=== PATIENT | male | born 1930 | race African-American/Black ===

== ENCOUNTER 2017-02-06 06:29 | Emergency (ER) | payer MEDICARE ==
[~2017-02-06] VITALS: Ht 180.3 cm; Wt 113.4 kg
[~2017-02-06 06:29] MED LIST: AMIO200T2 PO; AMLO10TA2 PO; APIX5TAB PO; ASPI-482 PO; ASPI81TA50 PO; CHLO25TA PO; CLON0.1T PO; DOCU-27 PO; GABA-586 PO; HYDR-2666 PO; HYDR-2868 PO; HYDR25TA9 PO; LOSA100T6 PO; LOSA50TA6 PO; MAGN30OR PO; METO25TA4 PO; MULT-245 PO; NITR0.4T SL; NITR0.4T6 SL; OXYC5TAB PO; PANT40TA3 PO; POLY17PO5 PO; POTA20TA82 PO; RANI300C PO; RIVA20TA2 PO; SENN8.6T3 PO; SOTA160T PO; TEMA30CA PO; TRAM50TA PO; [UNRECOGNIZED DRUG - CODE] PO
--- NOTE | 2017-02-06 08:44 | RAD ---
AP pelvis radiograph to include AP and lateral radiographs of the left hip 02/06/2017 Clinical history: Fall last night with left hip pain and bruising. An AP digital radiograph of the pelvis to include both hips was obtained. AP and lateral digital radiographs of the left hip were obtained. Surgical clips are seen within the lower pelvis. The patient is status post bilateral JULIO. The prosthetic components are intact. No pelvic bone fracture is seen. No fracture or dislocation of the left hip is noted. Impression: No fracture or dislocation is seen.
--- NOTE | 2017-02-06 09:06 | PHYS DOC ---
Past Medical History Past Medical History: Arrhythmia, Cancer, Hypertension, Other Additional Past Medical Histor: colon cancer, prostate cancer, Past Surgical History: Cholecystectomy, Colectomy, Pacemaker, Other Additional Past Surgical Histo: prostate surgery Alcohol Use: None Drug Use: None Adult General Chief Complaint Chief Complaint: HIP PAIN [facility] HPI 86-year-old male who states he fell on his left hip on a wet bathroom floor several days ago and is now having some significant bruising and mild pain with ambulation. 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 He denies any fever or chills. He denies any other atraumatic injury. He denies any abdominal pain, chest pain or shortness of breath. He states he did not hit his head and has no loss consciousness. Review of Systems Review of Systems Constitutional: Denies fever or chills [] Eyes: Denies change in visual acuity, redness, or eye pain [] HENT: Denies nasal congestion or sore throat [] Respiratory: Denies cough or shortness of breath [] Cardiovascular: No additional information not addressed in HPI [] GI: Denies abdominal pain, nausea, vomiting, bloody stools or diarrhea [] : Denies dysuria or hematuria [] Musculoskeletal: Denies back pain, has joint pain [] Integument: Denies rash or skin lesions [] Neurologic: Denies headache, focal weakness or sensory changes [] Endocrine: Denies polyuria or polydipsia [] Allergies Allergies Allergies Coded Allergies Type Severity Reaction Last Updated Verified Xprbwvd-Vjk-Zap Reductase Inhibitor Allergy Intermediate Rash 11/09/13 Yes Physical Exam Physical Exam Constitutional: Well developed, well nourished, no acute distress, non-toxic appearance. [] HENT: Normocephalic, atraumatic, bilateral external ears normal, oropharynx moist, no oral exudates, nose normal. [] Eyes: PERRLA, EOMI, conjunctiva normal, no discharge. [] Neck: Normal range of motion, no tenderness, supple, no stridor. [] Cardiovascular:Heart rate regular rhythm, no murmur [] Lungs & Thorax: Bilateral breath sounds clear to auscultation [] Abdomen: Bowel sounds normal, soft, no tenderness, no masses, no pulsatile masses. [] Skin: Warm, dry, no erythema, no rash. [] Back: No tenderness, no CVA tenderness. [] Extremities: Mild bruising and tenderness to the left hip with no obvious swelling or deformity seen, no cyanosis, no clubbing, ROM intact, no edema. [] Neurologic: Alert and oriented X 3, normal motor function, normal sensory function, no focal deficits noted. [] Psychologic: Affect normal, judgement normal, mood normal. [] Current Patient Data Vital Signs Vital Signs Date Time Temp Pulse Resp B/P Pulse Ox O2 Delivery O2 Flow Rate FiO2 02/06/17 08:00 98.3 65 19 98 Room Air 98.3 EKG EKG [] Radiology/Procedures Radiology/Procedures AP pelvis radiograph to include AP and lateral radiographs of the left hip 02/06/2017 Clinical history: Fall last night with left hip pain and bruising. An AP digital radiograph of the pelvis to include both hips was obtained. AP and lateral digital radiographs of the left hip were obtained. Surgical clips are seen within the lower pelvis. The patient is status post bilateral JULIO. The prosthetic components are intact. No pelvic bone fracture is seen. No fracture or dislocation of the left hip is noted. Impression: No fracture or dislocation is seen. DICTATED and SIGNED BY: JUAN CARLOS CHAHAL MD DATE: 02/06/17 0840 CC: NIMISHA BUTTS DO; LAN DOWLING MD ~ Course & Med Decision Making Course & Med Decision Making Pertinent Labs and Imaging studies reviewed. (See chart for details) This 86-year-old male who's having moderate left hip pain has plain films that are negative for any acute fracture or dislocation. He does have some mild bruising seen her left hip but no other acute findings on exam. He is likely having hip contusion and I counseled him to avoid any stress activities and follow closely his primary care doctor. Patient is prescribed pain medications and has enough at home for the next several days. He was instructed to follow closely with his primary care doctor for his ongoing pain. Dragon Disclaimer Dragon Disclaimer This electronic medical record was generated, in whole or in part, using a voice recognition dictation system. Departure Departure Impression: Primary Impression: Contusion, hip Disposition: 01 HOME, SELF-CARE Admitting Physician: Other Condition: STABLE Referrals: LAN DOWLING MD (PCP) Patient Instructions: Hip Injury Additional Instructions: Please take your pain medication as needed for your hip injury and avoid any strenuous activities. Follow up closely with your primary doctor in the next 2- 3 days for your injury. Return to the ER if you develop any worsening of your pain. NIMISHA BUTTS DO Feb 06, 2017 09:06
[2017-02-06 09:18] VITALS: BP 166/72
== END 2017-02-06 09:15 | disposition home or self-care (01) ==
LOC: ER 06:29
DX: S70.02XA Contusion of left hip, initial encounter (principal); I10 Essential (primary) hypertension; Z96.643 Presence of artificial hip joint, bilateral; Z88.8 Allergy status to other drugs, medicaments and biological substances; Z96.89 Presence of other specified functional implants; W18.39XA Other fall on same level, initial encounter; Y93.89 Activity, other specified; Y92.091 Bathroom in other non-institutional residence as the place of occurrence of the external cause; Y99.8 Other external cause status
CPT/HCPCS: 73502; 99284

== ENCOUNTER 2017-07-10 09:40 | Emergency (ER) | payer MEDICARE ==
[~2017-07-10] VITALS: Ht 180.3 cm; Wt 115.7 kg
[~2017-07-10 09:40] MED LIST changes: +DOCU-109 PO; -DOCU-27 PO; -HYDR-2666 PO; +HYDR-2758 PO; +NITR0.4T22 SL; -NITR0.4T6 SL; -OXYC5TAB PO; +OXYC5TAB95 PO; +POLY17PO29 PO; -POLY17PO5 PO; +SENN-79 PO; -SENN8.6T3 PO
[2017-07-10 10:18] VITALS: BP 169/84
--- NOTE | 2017-07-10 10:30 | PHYS DOC ---
Past Medical History Past Medical History: Arrhythmia, Cancer, Hypertension, Other Additional Past Medical Histor: colon cancer, prostate cancer, Past Surgical History: Cholecystectomy, Colectomy, Pacemaker, Other Additional Past Surgical Histo: prostate surgery Alcohol Use: None Drug Use: None Adult General Chief Complaint Chief Complaint: CHEMICAL EXPOSURE HPI HPI Patient is a 87 year old male presents to the emergency department with complaints of spilling yard spray on his hand and apparently. Patient states he washed immediately. He states that he reviewed the container and it told him to go to poison control emergency department. Upon arrival he has no complaints. Review of Systems Review of Systems Constitutional: Denies fever or chills [] Eyes: Denies change in visual acuity, redness, or eye pain [] HENT: Denies nasal congestion or sore throat [] Respiratory: Denies cough or shortness of breath [] Cardiovascular: No additional information not addressed in HPI [] GI: Denies abdominal pain, nausea, vomiting, bloody stools or diarrhea [] : Denies dysuria or hematuria [] Musculoskeletal: Denies back pain or joint pain [] Integument: Denies rash or skin lesions [] Neurologic: Denies headache, focal weakness or sensory changes [] Endocrine: Denies polyuria or polydipsia [] Allergies Allergies Allergies Coded Allergies Type Severity Reaction Last Updated Verified Vithisc-Oxp-Lfz Reductase Inhibitor Allergy Intermediate Rash 11/09/13 Yes Physical Exam Physical Exam Constitutional: Well developed, well nourished, no acute distress, non-toxic appearance. [] HENT: Normocephalic, atraumatic, bilateral external ears normal, oropharynx moist, no oral exudates, nose normal. [] Eyes: PERRLA, EOMI, conjunctiva normal, no discharge. [] Neck: Normal range of motion, no tenderness, supple, no stridor. [] Cardiovascular:Heart rate regular rhythm, no murmur [] Lungs & Thorax: Bilateral breath sounds clear to auscultation [] Abdomen: Bowel sounds normal, soft, no tenderness, no masses, no pulsatile masses. [] Skin: Warm, dry, no erythema, no rash, no vesicles [] Back: No tenderness, no CVA tenderness. [] Extremities: No tenderness, no cyanosis, no clubbing, ROM intact, no edema. [] Neurologic: Alert and oriented X 3, normal motor function, normal sensory function, no focal deficits noted. [] Psychologic: Affect normal, judgement normal, mood normal. [] EKG EKG [] Radiology/Procedures Radiology/Procedures [] Course & Med Decision Making Course & Med Decision Making Pertinent Labs and Imaging studies reviewed. (See chart for details) []Patient does have several small spills on his family. The pants were removed in the emergency department the patient was scrubbed with soap and water. He was provided with additional garments to wear home. Dragon Disclaimer Dragon Disclaimer This electronic medical record was generated, in whole or in part, using a voice recognition dictation system. Departure Departure Impression: Primary Impression: Exposure to chemical irritant Disposition: 01 HOME, SELF-CARE Condition: STABLE Referrals: LAN DOWLING MD (PCP) ANTONIO MUÑOZ APRN Jul 10, 2017 10:30
== END 2017-07-10 10:51 | disposition home or self-care (01) ==
LOC: ER 09:40
DX: Z77.098 Contact with and (suspected) exposure to other hazardous, chiefly nonmedicinal, chemicals (principal); Z88.8 Allergy status to other drugs, medicaments and biological substances; I10 Essential (primary) hypertension; Z90.49 Acquired absence of other specified parts of digestive tract; Z95.0 Presence of cardiac pacemaker
CPT/HCPCS: 99281

== ENCOUNTER 2018-02-21 13:21 | Emergency (ER) | payer MEDICARE ==
[2018-02-21] MEDS: DIPHTH,PERTUSS(ACELL),TET TOX 0.5 ML DISP.SYRIN. VAX IM (14:35)
[2018-02-21] MEDS: LIDOCAINE/EPI/TETRACAINE TOPICAL GEL 3 ML. TP (15:08)
[2018-02-21] MEDS: LIDOCAINE WITH 8.4% SOD BICARB 3 ML DISP.SYRIN. INJ (15:58)
== END 2018-02-21 16:29 | disposition home or self-care (01) ==
LOC: ER 13:21
DX: S60.552A Superficial foreign body of left hand, initial encounter (principal); I10 Essential (primary) hypertension; E78.00 Pure hypercholesterolemia, unspecified; Z90.49 Acquired absence of other specified parts of digestive tract; Z95.0 Presence of cardiac pacemaker; Z79.899 Other long term (current) drug therapy; Z88.8 Allergy status to other drugs, medicaments and biological substances; Z79.02 Long term (current) use of antithrombotics/antiplatelets; W45.8XXA Other foreign body or object entering through skin, initial encounter; Y93.89 Activity, other specified; Y92.89 Other specified places as the place of occurrence of the external cause; Y99.8 Other external cause status
CPT/HCPCS: 73130; 90471; 90715; 99284

== ENCOUNTER → 2019-05-14 | Outpatient (CLI) | payer MEDICARE ==
[2018-07-11 11:19] VITALS: BP 136/72
[~2019-05-14] MED LIST changes: -AMIO200T2 PO; +AMIO200T4 PO; -AMLO10TA2 PO; +AMLO10TA8 PO; -CHLO25TA PO; +CHLO25TA10 PO; -GABA-586 PO; +GABA300C18 PO; +HYDR-2145 PO; -HYDR-2758 PO; +HYDR-2761 PO; -HYDR25TA9 PO; +ISOS30TA4 PO; +LOSA-73 PO; +LOSA100T14 PO; -LOSA100T6 PO; -LOSA50TA6 PO; +OXYC5TAB4 PO; -OXYC5TAB95 PO; -PANT40TA3 PO; +PANT40TA77 PO; -SENN-79 PO; +SENN-80 PO; +SOTA80TA48 PO
--- NOTE | 2019-05-17 12:16 | RAD ---
MR#: [id number] Date of Study: 05/14/2019 Ordering Physician: PRASANNA HUNTER, Referring Physician: PRASANNA HUNTER, Tech: Kari Sun, LORA, RVT, RTR APPROVED REPORT Patient Location: OUT-PATIENT Indications Uncontrolled HTN Renal Artery Doppler Right Renal Artery Left Renal Arter y Proximal 91.5/22.3 cm/secProximal 81.4/18.5 cm/sec Mid 74.0/24.7 cm/secMid 88.3/21.5 cm/sec Distal 101.8/25.5 cm/secDistal 59.6/22.3 cm/sec Renal/Aorta Ratio 0.00Renal/Aorta Ratio 0.00 Prox. Resistive Index 0.76Prox. Resistive Index 0.77 Mid Resistive Index 0.84Mid Resistive Index 0.76 Distal Resistive Index 0.75Distal Resistive Index 0.63 Rt. Segmental A. 19.5/6.4 cm/secLt. Segmental A. Renal Measurements RightLeft Kidney Ogexzz36.16 cm 4.93 cmKidney Iekvez92.93 cm 4.26 cm Right Additional FindingsLeft Additional Findings Aortic Doppler VelocityWaveform Distal Aorta 87.5 cm/sec Findings Bilateral medical renal disease is noted There are multiple bilateral renal cysts with the largest measuring 3.9 x 3.2 x 2.8 cm on the right a nd 2.5 x 2.0 x 2.2 cm on the left. These appear to be simple cysts. Spectral waveforms and color Doppler involving the proximal, mid and distal renal arteries do not ruth w any evidence of renal artery stenosis. Velocities are within normal limits with a normal renal to a ortic ratios. Limited evaluation of the abdominal aorta does not demonstrate any high-grade focal ady nosis. The bilateral kidney size appears to be within normal limits. Critical Notification Critical Value: No <Conclusion> 1. No significant renal artery stenosis bilaterally 2. Multiple bilateral renal cysts noted. Signed by : Black Atkinson, Electronically Approved : 05/17/2019 12:15:55
== END | disposition home or self-care (01) ==
LOC: US 08:36
PROVIDERS: ATTEND Internal Medicine Cardiovascular Disease
DX: N28.1 Cyst of kidney, acquired (principal); I10 Essential (primary) hypertension
CPT/HCPCS: 93975

== ENCOUNTER 2019-07-29 04:49 | Inpatient (IN) | payer MEDICARE ==
[~2019-07-29] VITALS: Ht 180.3 cm; Wt 111.3 kg
[~2019-07-29 04:49] MED LIST changes: -NITR0.4T SL; +NITR0.4T24 SL
[2019-07-29] MEDS ORDERED: NITROGLYCERIN SUBLINGUAL 0.4 MG BOTTLE OF 25. SL PRN ×2 (05:00→05:45)
[2019-07-29] MEDS ORDERED: ASPIRIN CHEWABLE 81 MG TABLET. PO ONE (05:00)
[2019-07-29 05:09] LABS: BASO % 1 % (0-3); EOS # 0.2 x10^3/uL (0.0-0.7); EOS % 5 % (0-3); HEMOGLOBIN 13.5 g/dL (13.0-17.5); LYMPH # 1.1 x10^3/uL (1.0-4.8); LYMPH % 28 % (24-48); MEAN CORPUSCULAR HEMOGLOBIN 31 pg (25-35); MEAN CORPUSCULAR HGB CONC 34 g/dL (31-37); MEAN CORPUSCULAR VOLUME 93 fL (79-100); MONO # 0.7 x10^3/uL (0.0-1.1); MONO % 18 % (0-9); NEUT % 49 % (31-73); PLATELET COUNT 169 x10^3/uL (140-400); RED BLOOD COUNT 4.32 x10^6/uL (4.30-5.70); RED CELL DISTRIBUTION WIDTH 15.1 % (11.5-14.5); WHITE BLOOD COUNT 4.1 x10^3/uL (4.0-11.0)
--- NOTE | 2019-07-29 05:12 | PHYS DOC ---
Past Medical History Past Medical History: Arrhythmia, Cancer, High Cholesterol, Hypertension, Other Additional Past Medical Histor: colon cancer, prostate cancer, Past Surgical History: Cholecystectomy, Colectomy, Pacemaker, Other Additional Past Surgical Histo: prostate surgery Alcohol Use: None Drug Use: None Adult General Chief Complaint Chief Complaint: CHEST PAIN [facility] HPI 81-year-old male presents to the emergency department with complaints of chest pain. Patient states the pain was started around 9:30 PM last night prior to bed. Patient states he took a nitroglycerin and states he fell sleep. He woke up this morning around 3 AM with continued chest pain. Patient denied any nausea, vomiting, diaphoresis. Pain is located in the mid aspect of his chest, no radiat ion. States the pain was at rest. He currently denies any chest pain at this time. Patient states he's had a history of heart catheterization �2 without stent placement. He does have a pacemaker placed secondary to atrial fibrillation. Patient is on chronic anticoagulation. Patient denies any headac he, visual changes, abdominal pain. Nothing makes his pain worse, nothing makes his pain better. Review of Systems Review of Systems Constitutional: Denies fever or chills [] Respiratory: Denies cough or shortness of breath [] Cardiovascular: No additional information not addressed in HPI [] GI: Denies abdominal pain, nausea, vomiting, bloody stools or diarrhea [] Musculoskeletal: Denies back pain or joint pain [] Integument: Denies rash or skin lesions [] Neurologic: Denies headache, focal weakness or sensory changes [] All other systems were reviewed and found to be within normal limits, except as documented in this note. Current Medications Current Medications Current Medications Medications (Trade) Dose Ordered Sig/Afsaneh Start Time Stop Time Status Last Admin Dose Admin Aspirin (Children'S Aspirin) 324 mg 1X ONCE 07/29/19 05:00 07/29/19 05:04 DC 07/29/19 05:11 324 MG Nitroglycerin (Nitrostat) 0.4 mg PRN Q5MIN PRN 07/29/19 05:00 07/30/19 04:59 Allergies Allergies Allergies Coded Allergies Type Severity Reaction Last Updated Verified Lcceuvs-Umw-Fil Reductase Inhibitor Allergy Intermediate Rash 11/09/13 Yes Physical Exam Physical Exam Constitutional: Well developed, well nourished, no acute distress, non-toxic appearance. [] HENT: Normocephalic, atraumatic, bilateral external ears normal, oropharynx moist, no oral exudates, nose normal. [] Eyes: PERRLA, EOMI, conjunctiva normal, no discharge. [] Cardiovascular:Heart rate regular rhythm, no murmur [] Lungs & Thorax: Bilateral breath sounds clear to auscultation [] Abdomen: Bowel sounds normal, soft, no tenderness, no masses, no pulsatile masses. [] Skin: Warm, dry, no erythema, no rash. [] Extremities: No tenderness, no cyanosis, no edema. [] Neurologic: Alert and oriented X 3, no focal deficits noted. [] Psychologic: Affect normal, judgement normal, mood normal. [] Current Patient Data Vital Signs Vital Signs Date Time Temp Pulse Resp B/P (MAP) Pulse Ox O2 Delivery O2 Flow Rate FiO2 07/29/19 04:50 98.0 60 18 182/85 (117) 96 Room Air 98.0 Lab Values Laboratory Tests Test 07/29/19 05:00 White Blood Count 4.1 x10^3/uL (4.0-11.0) Red Blood Count 4.32 x10^6/uL (4.30-5.70) Hemoglobin 13.5 g/dL (13.0-17.5) Hematocrit 40.0 % (39.0-53.0) Mean Corpuscular Volume 93 fL (79-100) Mean Corpuscular Hemoglobin 31 pg (25-35) Mean Corpuscular Hemoglobin Concent 34 g/dL (31-37) Red Cell Distribution Width 15.1 % (11.5-14.5) H Platelet Count 169 x10^3/uL (140-400) Neutrophils (%) (Auto) 49 % (31-73) Lymphocytes (%) (Auto) 28 % (24-48) Monocytes (%) (Auto) 18 % (0-9) H Eosinophils (%) (Auto) 5 % (0-3) H Basophils (%) (Auto) 1 % (0-3) Neutrophils # (Auto) 2.0 x10^3/uL (1.8-7.7) Lymphocytes # (Auto) 1.1 x10^3/uL (1.0-4.8) Monocytes # (Auto) 0.7 x10^3/uL (0.0-1.1) Eosinophils # (Auto) 0.2 x10^3/uL (0.0-0.7) Basophils # (Auto) 0.0 x10^3/uL (0.0-0.2) Sodium Level 145 mmol/L (136-145) Potassium Level 4.1 mmol/L (3.5-5.1) Chloride Level 108 mmol/L (98-107) H Carbon Dioxide Level 29 mmol/L (21-32) Anion Gap 8 (6-14) Blood Urea Nitrogen 19 mg/dL (8-26) Creatinine 1.2 mg/dL (0.7-1.3) Estimated GFR (Cockcroft-Gault) 69.1 BUN/Creatinine Ratio 16 (6-20) Glucose Level 113 mg/dL (70-99) H Calcium Level 9.4 mg/dL (8.5-10.1) Magnesium Level 2.0 mg/dL (1.8-2.4) Total Bilirubin 0.3 mg/dL (0.2-1.0) Aspartate Amino Transferase (AST) 25 U/L (15-37) Alanine Aminotransferase (ALT) 26 U/L (16-63) Alkaline Phosphatase 85 U/L (46-116) Total Protein 7.4 g/dL (6.4-8.2) Albumin 3.5 g/dL (3.4-5.0) Albumin/Globulin Ratio 0.9 (1.0-1.7) L Laboratory Tests 07/29/19 05:00 Laboratory Tests 07/29/19 05:00 EKG EKG EKG is reviewed, heart rate 72, normal sinus rhythm appreciated, no acute evidence of ST elevation DC[] Interpretation Time: Interpretation time 0 456 Radiology/Procedures Radiology/Procedures [] Course & Med Decision Making Course & Med Decision Making Pertinent Labs and Imaging studies reviewed. (See chart for details) []81-year-old male presents to the emergency department with complaints of chest pain. Patient states the pain was started around 9:30 PM last night prior to bed. Patient states he took a nitroglycerin and states he fell sleep. He woke up this morning around 3 AM with continued chest pain. Patient denied any nausea, vomiting, diaphoresis. Pain is located in the mid aspect of his chest, no radiation. States the pain was at rest. He currently denies any chest pain at this time. Patient states he's had a history of heart catheterization �2 without stent placement. He does have a pacemaker placed secondary to atrial fibrillation. Patient is on chronic anticoagulation. Patient denies any headache, visual changes, abdominal pain. Nothing makes his pain worse, nothing makes his pain better. ASA 324mg po x 1, no NTG in the ER, patient without acute chest pain at this time. CXR without evidence of acute process - no effusion/consolidation. EKG reviewed - NSR no STEMI Troponin x 1 negative HEART Score [address] House Cardiology consult placed Dragon Disclaimer Dragon Disclaimer This electronic medical record was generated, in whole or in part, using a voice recognition dictation system. The HEART Score for CP Pts HEART Score for Chest Pain: HEART Score for Chest Pain Response (Comments) Value History Slighlty/Non-Suspicious 0 ECG Normal 0 Age > 65 2 Risk Factors >3 Risk Factors or Hx CAD 2 Total 4 Risk Factors: Risk Factors: DM, Current or recent (<one month) smoker, HTN, HLP, family history of CAD, obesity. Risk Scores: Score 0 - 3: 2.5% MACE over next 6 weeks - Discharge Home Score 4 - 6: 20.3% MACE over next 6 weeks - Admit for Clinical Observation Score 7 - 10: 72.7% MACE over next 6 weeks - Early Invasive Strategies Departure Departure Impression: Primary Impression: Chest pain Additional Impression: Essential hypertension Disposition: ADMITTED INPATIENT Admitting Physician: Brent House Condition: STABLE Referrals: BRENT HOUSE MD (PCP) Problem Qualifiers Primary Impression: Chest pain Chest pain type: unspecified Qualified Codes: R07.9 - Chest pain, u nspecified LIZZY HAND MD Jul 29, 2019 05:12
[2019-07-29 05:20] LABS: CALCIUM 9.4 mg/dL (8.5-10.1); CREATININE 1.2 mg/dL (0.7-1.3); GFR 69.1; POTASSIUM 4.1 mmol/L (3.5-5.1)
[2019-07-29 05:26] LABS: ALBUMIN 3.5 g/dL (3.4-5.0); ALBUMIN/GLOBULIN RATIO 0.9 (1.0-1.7); TOTAL BILIRUBIN 0.3 mg/dL (0.2-1.0); TOTAL PROTEIN 7.4 g/dL (6.4-8.2)
[2019-07-29] MEDS ORDERED: ONDANSETRON PF 4 MG/2 ML VIAL. IV PRN (05:45)
[2019-07-29 06:15] VITALS: BP 152/82
--- NOTE | 2019-07-29 06:20 | EKG ---
[facility] [address] [place] [address] Test Date: 2019-07-29 Test Time: 04:52:59 Pat Name: MARITA ARCOS Department: Room: Gender: M Yoghurt Maker: : [id number] Requested By: LIZZY HAND Order Number: [id number] Reading MD: Measurements Intervals Pruden Rate: 72 P: -47 MD: 122 QRS: 54 QRSD: 86 T: 35 QT: 388 QTc: 426 Interpretive Statements SINUS RHYTHM OTHERWISE NORMAL ECG RI6.01 No previous ECG available for comparison
--- NOTE | 2019-07-29 06:21 | RAD ---
EXAM: CHEST ONE VIEW. HISTORY: Chest pain. COMPARISON: 07/09/2018. FINDINGS: A frontal view of the chest is obtained. A left-sided pacemaker has its leads in the right atrium and right ventricle. There are no confluent infiltrates. There is no pneumothorax or pleural effusion. The heart is not enlarged. There are atherosclerotic calcifications of the aorta. IMPRESSION: 1. No confluent infiltrates. Electronically signed by: Bonita Mcdaniels MD (07/29/2019 6:18 AM) [facility]
[2019-07-29] MEDS ORDERED: GABA600T7 PO (06:44)
[2019-07-29] MEDS ORDERED: DOCU100C28 PO (06:44)
[2019-07-29] MEDS ORDERED: HYDR-2868 PO (06:44)
[2019-07-29 07:00] VITALS: BP 168/74
[2019-07-29 08:38] LABS: CHOLESTEROL/HDL RATIO 3.9
--- NOTE | 2019-07-29 08:45 | PDOC2 ---
ROSALIND PLAZA NEUROLOGY EPILEPSY PHYSICIAN 07/29/19 0845: CARDIAC CONSULT DATE OF CONSULT Date of Consult DATE: 07/29/19 TIME: 08:41 REASON FOR CONSULT Reason for Consult: Chest pain REFERRING PHYSICIAN Referring Physician: Adrien SOURCE Source: Chart review, Patient HISTORY OF PRESENT ILLNESS HISTORY OF PRESENT ILLNESS This is a pleasant 89 yo male admitted for complains of chest pain. Reports that this is sharp and started yesterday. It goes for about 1 minute then goes away isolated [facility] with no radiation. No associated n/v. No palpitations, SOA. In fact he walks about 1.5 miles a day and does gardening and no associated LAUREN nor exertional CP. No recent falls or injury. He diogenes another episode last night but again it was just 1 minuted and just went ahead and took NTG SL and went to bed. He had another episode early this am. Again no associated symptoms. He does have family dynamic issues. His son 62 yo lives with him and does not follow the rules and does not contribute in the house and this is stressing him out. He explains that his son is arrogant. He is compliant with his medications and takes sotalol and eliquis for afib. No frequent dizziness or any passing out spells. PAST MEDICAL HISTORY Cardiovascular: CAD, HTN, Hyperlipidemia Pulmonary: No pertinent hx CENTRAL NERVOUS SYSTEM: Other (No pertinent history) GI: GERD Heme/Onc: No pertinent hx Hepatobiliary: No pertinent hx Psych: No pertinent hx Musculoskeletal: Osteoarthritis Rheumatologic: No pertinent hx Infectious disease: No pertinent hx ENT: No pertinent hx Renal/: Prostate Ca., Other (bilateral renal cysts) Endocrine: No pertinent hx Dermatology: No pertinent hx PAST SURGICAL HISTORY Past Surgical History: Pacemaker, Cholecystectomy, Total hip replacement (left), Other (prostatectomy) FAMILY HISTORY Family History: Heart Disease (mother) SOCIAL HISTORY Smoke: No ALCOHOL: none Drugs: None Lives: with Family CURRENT MEDICATIONS CURRENT MEDICATIONS Current Medications Medications (Trade) Dose Ordered Sig/Afsaneh Route PRN Reason Start Time Stop Time Status Last Admin Dose Admin Aspirin (Children'S Aspirin) 324 mg 1X ONCE PO 07/29/19 05:00 07/29/19 05:04 DC 07/29/19 05:11 ALLERGIES ALLERGIES: Coded Allergies: Jgxbobv-Hrm-Urf Reductase Inhibitor (Verified Allergy, Intermediate, Rash, 1/14/14) ROS Review of System 14 point ROS evaluated with pertinent positives noted per HPI PHYSICAL EXAM General: Alert, Oriented X3, Cooperative, No acute distress HEENT: Atraumatic, Mucous membr. moist/pink Lungs: Clear to auscultation, Normal air movement Heart: Regular rate (Atrial paced), Normal S1, Normal S2, Other (3/6 systolic murmur to PATSY border) Abdomen: Soft, No tenderness Extremities: No cyanosis, No edema Skin: No breakdown, No significant lesion Neuro: Normal speech, Sensation intact Psych/Mental Status: Mental status NL, Mood NL MUSCULOSKELETAL: Osteoarthritic changes both hands VITALS/I&O VITALS/I&O: Vital Signs Date Time Temp Pulse Resp B/P (MAP) Pulse Ox O2 Delivery O2 Flow Rate FiO2 07/29/19 07:00 97.6 60 24 168/74 (105) 95 Room Air 97.6 LABS Lab: Laboratory Tests Test 07/29/19 05:00 07/29/19 05:08 White Blood Count 4.1 x10^3/uL (4.0-11.0) Red Blood Count 4.32 x10^6/uL (4.30-5.70) Hemoglobin 13.5 g/dL (13.0-17.5) Hematocrit 40.0 % (39.0-53.0) Mean Corpuscular Volume 93 fL (79-100) Mean Corpuscular Hemoglobin 31 pg (25-35) Mean Corpuscular Hemoglobin Concent 34 g/dL (31-37) Red Cell Distribution Width 15.1 % (11.5-14.5) H Platelet Count 169 x10^3/uL (140-400) Neutrophils (%) (Auto) 49 % (31-73) Lymphocytes (%) (Auto) 28 % (24-48) Monocytes (%) (Auto) 18 % (0-9) H Eosinophils (%) (Auto) 5 % (0-3) H Basophils (%) (Auto) 1 % (0-3) Neutrophils # (Auto) 2.0 x10^3/uL (1.8-7.7) Lymphocytes # (Auto) 1.1 x10^3/uL (1.0-4.8) Monocytes # (Auto) 0.7 x10^3/uL (0.0-1.1) Eosinophils # (Auto) 0.2 x10^3/uL (0.0-0.7) Basophils # (Auto) 0.0 x10^3/uL (0.0-0.2) Sodium Level 145 mmol/L (136-145) Potassium Level 4.1 mmol/L (3.5-5.1) Chloride Level 108 mmol/L (98-107) H Carbon Dioxide Level 29 mmol/L (21-32) Anion Gap 8 (6-14) Blood Urea Nitrogen 19 mg/dL (8-26) Creatinine 1.2 mg/dL (0.7-1.3) Estimated GFR (Cockcroft-Gault) 69.1 BUN/Creatinine Ratio 16 (6-20) Glucose Level 113 mg/dL (70-99) H Calcium Level 9.4 mg/dL (8.5-10.1) Magnesium Level 2.0 mg/dL (1.8-2.4) Total Bilirubin 0.3 mg/dL (0.2-1.0) Aspartate Amino Transferase (AST) 25 U/L (15-37) Alanine Aminotransferase (ALT) 26 U/L (16-63) Alkaline Phosphatase 85 U/L (46-116) Total Protein 7.4 g/dL (6.4-8.2) Albumin 3.5 g/dL (3.4-5.0) Albumin/Globulin Ratio 0.9 (1.0-1.7) L Triglycerides Level 103 mg/dL (0-150) Cholesterol Level 140 mg/dL (0-200) LDL Cholesterol, Calculated 83 mg/dL (0-100) VLDL Cholesterol, Calculated 21 mg/dL (0-40) Non-HDL Cholesterol Calculated 104 mg/dL (0-129) HDL Cholesterol 36 mg/dL (40-60) L Cholesterol/HDL Ratio 3.9 POC Troponin I 0.00 ng/ml (<0.08) Laboratory Tests 07/29/19 05:00 Laboratory Tests 07/29/19 05:00 ECHOCARDIOGRAM ECHOCARDIOGRAM <Conclusion> The left ventricular systolic function is normal and the ejection fraction is within normal range. The Ejection Fraction is 60%. Transmitral Doppler flow pattern is Grade I-abnormal relaxation pattern. There is mild concentric left ventricular hypertrophy. The left atrium size is normal. The right atrium size is normal. A pacemaker is seen in the right atrium consistent with history. The aortic valve is calcified but opens well. Doppler and Color-flow revealed mild mitral regurgitation. Doppler and Color Flow revealed mild tricuspid regurgitation. There is moderate pulmonary hypertension. The PA pressure was estimated at 49 mmHg. Doppler and Color Flow revealed trace pulmonic valvular regurgitation. There is no evidence of significant pericardial effusion. DATE: 07/11/18 1518 HEART CATH HEART CATH Findings: Coronaries: The left main is normal. The LAD is normal. The circumflex is normal. The RCA has some very mild distal plaquing in the 20-40% range. Ventriculogram: The left ventricular ejection fraction was estimated to be about 75%. There does not appear to be any significant mitral insufficiency. There was no gradient across the aortic valve. Impression: This patient does not appear to have any significant coronary artery disease therefore I would recommend medical treatment for this patient. DATE: 02/24/15 1841 ASSESSMENT/PLAN ASSESSMENT/PLAN 1. Atypical chest pain: suspect probably from stress. Good functional capacity, doubt ACS 2. CAD: 2014 [facility] revealed distal mild disease to RCA otherwise normal coronaries 3. HTN: labile episodes 4. 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 ([facility]). atrial paced 5. PAFIB: on eliquis 6. HLP: takes zetia at home 7. Obesity 8. Anxiety: family dynamic contributing Recommendations 1. TTE, TSH, lipids. Prior MPI 11/2018 with no reversible defects. 2. Will interrogate Device and note any intermittent tachycarrhythmias contributing to his chest discomfort 3. Consider placing back on PPI. 4. Restart home BP meds gradually including sotalol, QTc 426. Will note AFIB burden and will adjust sotalol dosing accordingly given his age. PRASANNA HUNTER MD 07/29/19 1625: CARDIAC CONSULT ASSESSMENT/PLAN ASSESSMENT/PLAN Patient seen and examined. Agree with HOOKING MACHINE OPERATOR's assessment and plan. Chest pain with atypical features Myocardial infarction has been ruled out 2-D echo showed normal LV function without any wall motion abnormalities Recent Lexiscan nuclear stress test did not show any significant ischemia Continue sotalol and eliquis for PAF No further cardiac workup is indicated at this time Thank you for your consultation ROSALIND PLAZA APRN Jul 29, 2019 08:45 PRASANNA HUNTER MD Jul 29, 2019 16:25
[2019-07-29] MEDS: LOSARTAN POTASSIUM 50 MG TABLET. PO SCH (10:39)
[2019-07-29] MEDS: APIXABAN 5 MG TABLET. PO SCH ×2 (10:40→21:05)
[2019-07-29] MEDS: SOTALOL 80 MG TABLET. PO SCH (10:40)
[2019-07-29] MEDS: amLODIPine BESYLATE 10 MG TABLET PO SCH (10:40)
[2019-07-29 11:00] VITALS: BP 175/78
--- NOTE | 2019-07-29 11:38 | PDOC ---
Provider Note Provider Note history and physical dictated # [id number] LAN DOWLING MD Jul 29, 2019 11:38
[2019-07-29] MEDS ORDERED: MAGNESIUM HYDROXIDE 2,400 MG/30 ML ORAL.SUSP. PO PRN (11:45)
[2019-07-29] MEDS ORDERED: ACETAMINOPHEN 325 MG TABLET. PO PRN (11:45)
[2019-07-29] MEDS ORDERED: ANTI-COAG MONITOR BY PHARMACY. MC PRN (12:00)
--- NOTE | 2019-07-29 12:11 | CARD ---
MR#: [id number] Date of Study: 07/29/2019 Ordering Physician: ROSALIND PLAZA, Referring Physician: ROSALIND PLAZA, Tech: Kathie Ramires RDCS APPROVED REPORT EXAM: Two-dimensional and M-mode echocardiogram with Doppler and color Doppler. Other Information Quality : AverageHR: 60bpm Rhythm : Pacemaker INDICATION Chest Pain 2D DIMENSIONS RVDd3.7 (2.9-3.5cm)Left Atrium(2D)3.5 (1.6-4.0cm) IVSd1.4 (0.7-1.1cm)Aortic Root(2D)3.3 (2.0-3.7cm) LVDd4.7 (3.9-5.9cm)LVOT Diameter2.3 (1.8-2.4cm) PWd1.3 (0.7-1.1cm)LVDs3.3 (2.5-4.0cm) FS (%) 29.5 %SV58.8 ml LVEF(%)56.4 (>50%) M-Mode DIMENSIONS Left Atrium(MM)3.85 (2.5-4.0cm)Aortic Root3.42 (2.2-3.7cm) Aortic Valve AoV Peak Kleber.140.0cm/sAoV VTI33.9cm AO Peak GR.7.8mmHgLVOT Peak Kleber.121.5cm/s AO Mean GR.4mmHgAVA (VMAX)3.56cm2 KRYSTIN (VTI)3.50cm2 Mitral Valve MV E Awjkeqnv75.8cm/sMV DECEL [id number] MV A Wsutzlem285.1cm/sE/A Ratio0.7 Pulmonary Valve PV Peak Ympowjdk65.7cm/s Tricuspid Valve TR P. Chyvmxsl580gr/sRAP YLJONYJJ5onRm TR Peak Gr.65noClHIZJ06yhHs LEFT VENTRICLE The left ventricle is normal size. There is mild concentric left ventricular hypertrophy. The left ve ntricular systolic function is normal and the ejection fraction is within normal range. The Ejection Fraction is 55-60%. There is normal LV segmental wall motion. Transmitral Doppler flow pattern is Gra de I-abnormal relaxation pattern. RIGHT VENTRICLE The right ventricle is mildly dilated. There is normal right ventricular wall thickness. The right ve ntricular systolic function is normal. Pacer lead noted in RV/RA. ATRIA The left atrium size is normal. The right atrium size is normal. The interatrial septum is intact wit h no evidence for an atrial septal defect or patent foramen ovale as noted on 2-D or Doppler imaging. AORTIC VALVE The aortic valve is thickened but opens well. The aortic valve is trileaflet. Doppler and Color Flow revealed no significant aortic regurgitation. There is no significant aortic valvular stenosis. There is no aortic valvular vegetation. MITRAL VALVE The mitral valve is normal in structure and function. There is no evidence of mitral valve prolapse. There is no mitral valve stenosis. Doppler and Color-flow revealed trace mitral regurgitation. TRICUSPID VALVE The tricuspid valve is normal in structure and function. Doppler and Color Flow revealed trace to mil d tricuspid regurgitation. The PA pressure was estimated at 48 mmHg. There is no tricuspid valve prol apse or vegetation. There is no tricuspid valve stenosis. PULMONIC VALVE The pulmonic valve is not well visualized. GREAT VESSELS The aortic root is normal in size. The ascending aorta is normal in size. The IVC is normal in size a nd collapses >50% with inspiration. PERICARDIAL EFFUSION There is no evidence of significant pericardial effusion. Critical Notification Critical Value: No <Conclusion> The left ventricle is normal size. The left ventricular systolic function is normal and the ejection fraction is within normal range. The Ejection Fraction is 55-60%. There is mild concentric left ventricular hypertrophy. There is no significant aortic valvular stenosis. Doppler and Color Flow revealed no significant aortic regurgitation. Doppler and Color-flow revealed trace mitral regurgitation. Doppler and Color Flow revealed trace to mild tricuspid regurgitation. The PA pressure was estimated at 48 mmHg. Signed by : Lui Sexton MD Electronically Approved : 07/29/2019 12:11:11
[2019-07-29] MEDS: POTASSIUM CHLORIDE 20 MEQ TABLET.ER. PO SCH (12:32)
[2019-07-29] MEDS: EZETIMIBE 10 MG TABLET. PO SCH (12:32)
[2019-07-29] MEDS: MULTIVITAMIN with MINERAL TABLET. PO SCH (12:32)
[2019-07-29] MEDS: hydroCHLOROthiazide 25 MG TABLET PO SCH (12:32)
--- NOTE | 2019-07-29 12:43 | NUR ---
SS following for discharge planning. SS reviewed pt chart. Pt is from home with son and is currently on room air. SS will continue to follow for discharge planning.
--- NOTE | 2019-07-29 13:14 | HP ---
ADMIT DATE: 07/29/2019 LOCATION: He is in room 252. HISTORY OF PRESENT ILLNESS: The patient is an 89-year-old -[place] male who has a history of coronary artery disease, hypertension, hyperlipidemia and paroxysmal atrial fibrillation, on Eliquis and sotalol, who noted the onset of a dull chest discomfort yesterday in the afternoon and again at night. He was awakened up around 2:30 in the morning and he did take a sublingual nitroglycerin and pain lasted about 6 minutes. It was recurrent. He had about 2-3 total episodes, went to the [facility] Emergency Room where he was evaluated. He was hemodynamically stable. EKG showed no acute change with initial troponin level negative, subsequently admitted to the hospital for telemetry and further evaluation and treatment of his chest pain. There was no shortness of breath, nausea, vomiting or diaphoresis associated with it. He has been under a lot of stress as he has got a 62-year-old son who lives with him and he has been quite stressful for him. He is trying to have a son move out of his home. He is therefore admitted for further evaluation of his chest pain. ALLERGIES AND INTOLERANCES: STATINS. MEDICATIONS: Prior to admission include amlodipine 10 mg every day, gabapentin 600 mg t.i.d., hydralazine 25 mg t.i.d., potassium chloride 20 mEq every day, losartan 100 mg every day, hydrochlorothiazide 25 mg every day, sotalol 160 mg b.i.d., Eliquis 5 mg b.i.d., aspirin 81 mg every day, multiple vitamin every day, and Zetia 10 mg every day. PAST MEDICAL HISTORY: Significant for hypertension, hyperlipidemia, paroxysmal atrial fibrillation for which he takes Eliquis. He has a permanent pacemaker. He has had a cholecystectomy, left total hip arthroplasty and a prostatectomy. SOCIAL HISTORY: He does not drink alcohol nor does he smoke cigarettes. FAMILY HISTORY: Noncontributory. REVIEW OF SYSTEMS: GENERAL: He denies any fever, chills or sweats. CARDIOVASCULAR: No chest pain. PULMONARY: No shortness of breath or cough. GASTROINTESTINAL: No constipation. ENDOCRINE: He has no diabetes mellitus. SKIN: No rashes. The rest of systems reviewed are negative except as stated in history of present illness. PHYSICAL EXAMINATION: VITAL SIGNS: Temperature 97.6 degrees, apical pulse regular 64, respiratory rate 24, blood pressure 175/78, oxygen saturation 95% on room air. HEENT: Eyes: Gaze is conjugate. Mouth: Tongue is midline. NECK: There is no cervical lymphadenopathy or thyroid enlargement. HEART: Reveals an S1, S2. There is no S3 or murmur. LUNGS: Clear anteriorly. ABDOMEN: Obese and soft. EXTREMITIES: Lower extremities without edema. SKIN: No rashes. NEUROLOGIC: Coherent with no focal weakness of the arms or legs or facial asymmetry. LABORATORY DATA: Review of his laboratory tests: White count 4.1, hemoglobin 13.5, platelet count 169,000 with 49 polys and 28 lymphocytes. Sodium 145, potassium 4.1, chloride 108, total CO2 of 29, BUN 19, creatinine 1.2, blood sugar 113. Liver function tests normal. Albumin 3.5. Liver function tests on admission were normal. Total cholesterol 140, LDL of 83 and his HDL was 36 with a triglyceride level of 103. TSH was normal at 2.6. Troponin level was less than 0.017. He had a chest x-ray, which showed no acute abnormality and electrocardiogram which showed no acute abnormality. It should be noted that his last echocardiogram was done a year ago and showed a preserved left ventricular ejection fraction of 60%. He had mild concentric left ventricular hypertrophy and grade 1 diastolic left ventricular dysfunction. He had a myocardial perfusion imaging stress test, he said apparently was done in 11/2018 at [facility], which was negative and his last cardiac catheterization was done in 2014 and there was not any significant coronary artery disease at that time. He had 20%-40% plaquing of the right coronary artery, left anterior descending artery and circumflex coronary arteries were normal. ASSESSMENT: 1. Chest pain. 2. Paroxysmal atrial fibrillation, on Eliquis. 3. Hypertension. 4. Hyperlipidemia. PLAN: At this time is to consult the pitching coach, already been to see him. He will have an echocardiogram done and we will do serial cardiac enzymes. Resume his home medications and adjust the sotalol as necessary. Watch for any further chest pain. LAN DOWLING MD DR: CATARINA/mike JOB#: [id number] / [id number]
[2019-07-29] MEDS: GABAPENTIN 300 MG CAPSULE. PO SCH ×2 (14:49→21:05)
[2019-07-29] MEDS: hydrALAZINE 25 MG TABLET PO SCH ×2 (14:49→21:04)
[2019-07-29 15:00] VITALS: BP 135/73
[2019-07-29 19:54] VITALS: BP 152/85
[2019-07-29 22:38] VITALS: BP 128/70
[2019-07-30 03:12] VITALS: BP 107/63
[2019-07-30 07:00] VITALS: BP 127/70
[2019-07-30] MEDS ORDERED: ASPIRIN 325 MG TABLET PO SCH (08:00)
[2019-07-30] MEDS: hydroCHLOROthiazide 25 MG TABLET PO SCH (08:46)
[2019-07-30] MEDS: amLODIPine BESYLATE 10 MG TABLET PO SCH (08:46)
[2019-07-30] MEDS: APIXABAN 5 MG TABLET. PO SCH (08:47)
[2019-07-30] MEDS: EZETIMIBE 10 MG TABLET. PO SCH (08:47)
[2019-07-30] MEDS: SOTALOL 80 MG TABLET. PO SCH (08:47)
[2019-07-30] MEDS: MULTIVITAMIN with MINERAL TABLET. PO SCH (08:47)
[2019-07-30] MEDS: GABAPENTIN 300 MG CAPSULE. PO SCH (08:48)
[2019-07-30] MEDS: hydrALAZINE 25 MG TABLET PO SCH (08:48)
[2019-07-30] MEDS: LOSARTAN POTASSIUM 50 MG TABLET. PO SCH (08:48)
[2019-07-30] MEDS: POTASSIUM CHLORIDE 20 MEQ TABLET.ER. PO SCH (08:48)
[2019-07-30] MEDS ORDERED: ASPIRIN ENTERIC COATED 81 MG TABLET.DR. PO SCH (09:00)
--- NOTE | 2019-07-30 09:54 | PDOC ---
PROGRESS NOTES Subjective Subjective denies further chest pain. cardiac enzymes negative and echo showed a preserved LVEF. discussed with procurement clerk MEDICAL SERVICES MANAGER and will decrease sotalol 80 mg bid based on creatinine clearance. feels well Objective Objective Vital Signs Date Time Temp Pulse Resp B/P (MAP) Pulse Ox O2 Delivery O2 Flow Rate FiO2 07/30/19 08:48 60 127/70 07/30/19 08:00 Room Air 07/30/19 07:00 98.2 18 94 98.2 Intake and Output 07/30/19 07:00 Intake Total 880 ml Balance 880 ml Intake Oral 880 ml # Voids 5 Physical Exam Abdomen: Soft Heart: Regular rate, Normal S1, Normal S2 Extremities: No edema General: Alert HEENT: Atraumatic Lungs: Clear to auscultation Neuro: Normal speech Psych/Mental Status: Mental status NL Skin: No rashes Assessment Assessment Problems1. Chest pain.suspect due to esophageal spasm 2. Paroxysmal atrial fibrillation, on Eliquis. 3. Hypertension. 4. Hyperlipidemia. Medical Problems: (1) Chest pain Status: Acute (2) Essential hypertension Status: Acute Plan Plan of Care change sotalolol 80 mg bid dismiss today Comment Review of Relevant I have reviewed the following items martín (where applicable) has been applied. Labs Laboratory Tests Test 07/29/19 05:00 07/29/19 05:08 07/29/19 08:45 07/29/19 12:15 White Blood Count 4.1 x10^3/uL (4.0-11.0) Red Blood Count 4.32 x10^6/uL (4.30-5.70) Hemoglobin 13.5 g/dL (13.0-17.5) Hematocrit 40.0 % (39.0-53.0) Mean Corpuscular Volume 93 fL (79-100) Mean Corpuscular Hemoglobin 31 pg (25-35) Mean Corpuscular Hemoglobin Concent 34 g/dL (31-37) Red Cell Distribution Width 15.1 % (11.5-14.5) Platelet Count 169 x10^3/uL (140-400) Neutrophils (%) (Auto) 49 % (31-73) Lymphocytes (%) (Auto) 28 % (24-48) Monocytes (%) (Auto) 18 % (0-9) Eosinophils (%) (Auto) 5 % (0-3) Basophils (%) (Auto) 1 % (0-3) Neutrophils # (Auto) 2.0 x10^3/uL (1.8-7.7) Lymphocytes # (Auto) 1.1 x10^3/uL (1.0-4.8) Monocytes # (Auto) 0.7 x10^3/uL (0.0-1.1) Eosinophils # (Auto) 0.2 x10^3/uL (0.0-0.7) Basophils # (Auto) 0.0 x10^3/uL (0.0-0.2) Sodium Level 145 mmol/L (136-145) Potassium Level 4.1 mmol/L (3.5-5.1) Chloride Level 108 mmol/L (98-107) Carbon Dioxide Level 29 mmol/L (21-32) Anion Gap 8 (6-14) Blood Urea Nitrogen 19 mg/dL (8-26) Creatinine 1.2 mg/dL (0.7-1.3) Estimated GFR (Cockcroft-Gault) 69.1 BUN/Creatinine Ratio 16 (6-20) Glucose Level 113 mg/dL (70-99) Calcium Level 9.4 mg/dL (8.5-10.1) Magnesium Level 2.0 mg/dL (1.8-2.4) Total Bilirubin 0.3 mg/dL (0.2-1.0) Aspartate Amino Transf (AST/SGOT) 25 U/L (15-37) Alanine Aminotransferase (ALT/SGPT) 26 U/L (16-63) Alkaline Phosphatase 85 U/L (46-116) Total Protein 7.4 g/dL (6.4-8.2) Albumin 3.5 g/dL (3.4-5.0) Albumin/Globulin Ratio 0.9 (1.0-1.7) Triglycerides Level 103 mg/dL (0-150) Cholesterol Level 140 mg/dL (0-200) LDL Cholesterol, Calculated 83 mg/dL (0-100) VLDL Cholesterol, Calculated 21 mg/dL (0-40) Non-HDL Cholesterol Calculated 104 mg/dL (0-129) HDL Cholesterol 36 mg/dL (40-60) Cholesterol/HDL Ratio 3.9 Thyroid Stimulating Hormone (TSH) 2.646 uIU/mL (0.358-3.74) Bedside Troponin I 0.00 ng/ml (<0.08) Troponin I Quantitative < 0.017 ng/mL (0.000-0.055) < 0.017 ng/mL (0.000-0.055) Laboratory Tests Test 07/29/19 12:15 Troponin I Quantitative < 0.017 ng/mL (0.000-0.055) Medications Current Medications Aspirin (Children'S Aspirin) 324 mg 1X ONCE PO Last administered on 07/29/19 05:11; Start 07/29/19 at 05:00; Stop 07/29/19 at 05:04; Status DC Nitroglycerin (Nitrostat) 0.4 mg PRN Q5MIN PRN SL CP RATING > 1/10; Start 07/29/19 at 05:00; Stop 07/29/19 at 05:50; Status DC Ondansetron HCl (Zofran) 4 mg PRN Q8HRS PRN IV NAUSEA/VOMITING; Start 07/29/19 at 05:45; Stop 07/30/19 at 05:44; Status DC Nitroglycerin (Nitrostat) 0.4 mg PRN Q5MIN PRN SL CHEST PAIN; Start 07/29/19 at 05:45; Stop 07/30/19 at 05:44; Status DC Amlodipine Besylate (Norvasc) 10 mg DAILY PO Last administered on 07/30/19at 08:46; Start 07/29/19 at 10:00 Apixaban (Eliquis) 5 mg BID PO Last administered on 07/30/19at 08:47; Start 07/29/19 at 10:00 Aspirin (Ecotrin) 81 mg DAILY PO Last administered on 07/30/19at 08:47; Start 1 at 09:00 Losartan Potassium (Cozaar) 100 mg DAILY PO Last administered on 07/30/19at 08:48; Start 07/29/19 at 10:00 Sotalol HCl (Betapace) 160 mg DAILY PO Last administered on 07/30/19at 08:47; Start 07/29/19 at 10:00 Gabapentin (Neurontin) 600 mg TID PO Last administered on 07/30/19at 08:48; Start 07/29/19 at 14:00 Hydralazine HCl (Apresoline) 25 mg TID PO Last administered on 07/30/19at 08:48; Start 07/29/19 at 14:00 Potassium Chloride (Klor-Con) 20 meq DAILYWBKFT PO Last administered on 07/30/19at 08:48; Start 07/29/19 at 12:00 Hydrochlorothiazide (Hydrodiuril) 25 mg DAILY PO Last administered on 07/30/19at 08:46; Start 07/29/19 at 12:00 Multivitamins (Thera M Plus) 1 tab DAILY PO Last administered on 07/30/19at 08:47; Start 07/29/19 at 12:00 Aspirin (Misty Aspirin) 81 mg DAILYWBKFT PO ; Start 07/30/19 at 08:00; Stop 07/29/19 at 11:51; Status DC EZETIMIBE (Zetia) 10 mg DAILY PO Last administered on 07/30/19at 08:47; Start 07/29/19 at 12:00 Acetaminophen (Tylenol) 650 mg PRN Q6HRS PRN PO HEADACHE / TEMP Last administered on 07/29/19at 21:10; Start 07/29/19 at 11:45 Magnesium Hydroxide (Milk Of Magnesia) 2,400 mg PRN DAILY PRN PO CONSTIPATION; Start 07/29/19 at 11:45 Info (Anti-Coagulation Monitoring By Pharmacy) 1 each PRN DAILY PRN MC SEE COMMENTS; Start 07/29/19 at 12:00 Active Scripts Active Nitrostat (Nitroglycerin) 0.4 Mg Tab.subl 0.4 Mg SL PRN Q5MIN PRN Reported Docusate Sodium 100 Mg Capsule 1 Cap PO DAILY Gabapentin 600 Mg Tablet 600 Mg PO TID Hydralazine Hcl 25 Mg Tablet 1 Tab PO TID Eliquis (Apixaban) 5 Mg Tablet 5 Mg PO BID Sotalol (Sotalol Hcl) 160 Mg Tablet 160 Mg PO BID Amlodipine Besylate 10 Mg Tablet 10 Mg PO DAILY Aspir 81 (Aspirin) 81 Mg Tablet.dr 1 Tab PO DAILY Potassium Chloride 20 Meq Tablet.er 20 Meq PO DAILY Hydrochlorothiazide Tablet (Hydrochlorothiazide) 25 Mg Tablet 25 Mg PO DAILY Multi Vitamin Daily (Multivitamin) 1 Each Tablet 1 Each PO DAILY Losartan Potassium 100 Mg Tablet 100 Mg PO DAILY Vitals/I & O Vital Sign - Last 24 Hours 07/29/19 07/29/19 07/29/19 07/29/19 10:39 10:40 10:40 11:00 Temp 97.6 97.6 Pulse 60 60 60 64 Resp 24 B/P (MAP) 168/74 168/74 168/74 175/78 (110) Pulse Ox 95 O2 Delivery Room Air 07/29/19 07/29/19 07/29/19 07/29/19 14:49 15:00 19:54 20:00 Temp 97.4 97.7 97.4 97.7 Pulse 64 64 62 Resp 24 16 B/P (MAP) 175/78 135/73 (93) 152/85 (107) Pulse Ox 94 93 O2 Delivery Room Air Room Air Room Air 07/29/19 07/29/19 07/30/19 07/30/19 21:04 22:38 03:12 07:00 Temp 97.9 98.0 98.2 97.9 98.0 98.2 Pulse 62 60 63 60 Resp 16 16 18 B/P (MAP) 152/85 128/70 (89) 107/63 (78) 127/70 (89) Pulse Ox 93 92 94 O2 Delivery Room Air Room Air Room Air 07/30/19 07/30/19 07/30/19 07/30/19 08:00 08:46 08:47 08:48 Pulse 60 60 60 B/P (MAP) 127/70 127/70 127/70 O2 Delivery Room Air 07/30/19 08:48 Pulse 60 B/P (MAP) 127/70 Intake and Output 07/29/19 07/29/19 07/30/19 15:00 23:00 07:00 Intake Total 500 ml 180 ml 200 ml Balance 500 ml 180 ml 200 ml LAN DOWLING MD Jul 30, 2019 09:53
[2019-07-30] MEDS ORDERED: SOTA80TA20 PO (09:59)
[2019-07-30] MEDS ORDERED: EZET10TA48 PO (09:59)
--- NOTE | 2019-07-30 10:00 | DISCH ---
DISCHARGE INSTRUCTIONS Condition on Discharge Condition on Discharge: Stable Activity After Discharge Activity Instructions for Disc: No restrictions, Activity as tolerated Bathing Instructions: No Tub Bath until see Lifting Instructions after Dis: No heavy lifting, No pulling or pushing, Do not lift >10 pounds Exercise Instruction after Dis: Walk 10 min, 3 x per day, Walk 15 min, 3 x per day, Walk 30 min, 3 x per week, Walk 30 min, 5 x per week Driving Instructions after Dis: Other, see below Weight Bearing Status after Di: No restrictions, As tolerated Diet after Discharge Diet after Discharge: Cardiac Diet Texture: Regular Liquid Texture: Thin Liquid Wound Incision Care Wound/Incision Care: May get incision wet, No wound care needed Checks after Discharge Checks after discharge: Check blood press - daily Contacting the DRElkin after DC Call your doctor for: Concerns you may have Follow-Up Follow up with: dr. dowling next week Treatment/Equipment after DC Adaptive Equipment Issued: None LAN DOWLING MD Jul 30, 2019 10:00
--- NOTE | 2019-07-30 10:06 | PDOC ---
Provider Note Provider Note discharge summary dictated # [id number] LAN DOWLING MD Jul 30, 2019 10:06
[2019-07-30 11:00] VITALS: BP 115/68
--- NOTE | 2019-07-30 11:45 | NUR ---
Discharge Note: MARITA ARCOS 2 [facility] Discharge instructions and discharge home medications reviewed with Patient and a copy given. All questions have been answered and understanding verbalized. The following instructions and handouts were given: chest pain Discontinued IV line Patient discharged to home with self care via wheelchair
--- NOTE | 2019-07-30 14:22 | RAD ---
EXAM: Chest, single view. HISTORY: Hypertension. COMPARISON: 07/29/2019 FINDINGS: A frontal view of the chest obtained. There is no infiltrate, pleural effusion or pneumothorax. The heart is normal in size. There is a cardiac pacemaker with leads in expected position. There is right hilar opacity likely due to a prominent central pulmonary vascular shadow. IMPRESSION: No acute pulmonary finding. Electronically signed by: Alysia Beckford MD (07/30/2019 2:19 PM) [place] [id number]
--- NOTE | 2019-07-30 16:11 | DS ---
DATE OF DISCHARGE: 07/30/2019 CONSULTANTS: Dr. Gallegos. FINAL DIAGNOSES: 1. Chest pain secondary to esophageal spasm. 2. Paroxysmal atrial fibrillation, on Eliquis. 3. Hypertension. 4. Hyperlipidemia. 5. Coronary artery disease. 6. History of a permanent pacemaker. HOSPITAL COURSE: The patient is an 89-year-old -[place] male who has a history of coronary artery disease, hypertension, hyperlipidemia, paroxysmal atrial fibrillation treated with Eliquis and sotalol noted the onset of dull chest discomfort prior to admission and took a sublingual nitroglycerin. It was recurrent, 2-3 episodes. He went to the [facility] Emergency Room and was hemodynamically stable. EKG showed no acute change. Initial troponin level was negative, subsequently admitted to the hospital for telemetry, seen by Dr. Gallegos in Cardiology. Sotalol was decreased from 160 mg b.i.d. to 80 mg b.i.d. based on his creatinine clearance. He had no further chest pain. His cardiac enzymes were negative. Echocardiogram was unremarkable with a preserved left ventricular ejection fraction. I discussed the case with the nursing service director nurse practitioner today and he will be dismissed today on a lower dose of sotalol 80 mg b.i.d., but continue with his other home medicines, which include amlodipine 10 mg every day, gabapentin 600 mg t.i.d., hydralazine 25 mg t.i.d., potassium chloride 25 mEq every day, losartan 100 mg every day, hydrochlorothiazide 25 mg every day, Eliquis 5 mg b.i.d., aspirin 81 mg every day, multiple vitamin every day, Zetia 10 mg every day and sotalol has been decreased to 80 mg b.i.d. He will make an appointment to see Dr. House in the office next week. Thank you very much. LAN HOUSE MD DR: CATARINA/mike JOB#: [id number] / [id number]
[2019-07-31] MEDS ORDERED: SOTALOL 80 MG TABLET. PO SCH (09:00)
== END 2019-07-30 12:31 | disposition home or self-care (01) | DRG 392 ==
LOC: ER 04:49 → 2 SOUTH 05:47 → OBSVTOIN 11:43
PROVIDERS: ADMIT Internal Medicine; ATTEND Internal Medicine
DX: K22.4 Dyskinesia of esophagus (principal); E66.9 Obesity, unspecified; E78.00 Pure hypercholesterolemia, unspecified; E78.5 Hyperlipidemia, unspecified; F41.9 Anxiety disorder, unspecified; I10 Essential (primary) hypertension; M19.90 Unspecified osteoarthritis, unspecified site; I25.10 Atherosclerotic heart disease of native coronary artery without angina pectoris; I48.0 Paroxysmal atrial fibrillation; I49.5 Sick sinus syndrome; K21.9 Gastro-esophageal reflux disease without esophagitis; Z79.01 Long term (current) use of anticoagulants; Z68.34 Body mass index [BMI] 34.0-34.9, adult; Z79.82 Long term (current) use of aspirin; Z82.49 Family history of ischemic heart disease and other diseases of the circulatory system; Z85.038 Personal history of other malignant neoplasm of large intestine; Z85.46 Personal history of malignant neoplasm of prostate; Z95.0 Presence of cardiac pacemaker; Z96.642 Presence of left artificial hip joint; Z90.49 Acquired absence of other specified parts of digestive tract; Z90.79 Acquired absence of other genital organ(s)
CPT/HCPCS: 36415; 71045; 80053; 80061; 83735; 84443; 84484; 85025; 93005; 93306; G0378; G0379

== ENCOUNTER → 2020-04-14 | Outpatient (CLI) | payer MEDICARE ==
[~2020-04-14] MED LIST changes: +DOCU100C28 PO; +EZET10TA48 PO; +GABA600T7 PO; +POTA20TA4 PO; -POTA20TA82 PO; +REGADENOSON 0.4 MG/5 ML DISP.SYRIN. IV ONE; +SENN-182 PO; -SENN-80 PO; +SOTA80TA20 PO
--- NOTE | 2020-04-14 12:34 | RAD ---
MR#: [id number] Date of Study: 04/14/2020 Ordering Physician: PRASANNA HUNTER Referring Physician: EVAN ALVAREZ Tech: Humble Canales, RT (R) (N) APPROVED REPORT Test Type: Pharmacological Stress Nurse/Tech: Joana ÁLVAREZ Test Indications: Afib Cardiac History: Afib, Arrythmia, HTN, PPM, See EMR Medications: ASA, Eliquis, See EMR Medical History: See EMR Resting ECG: A-Paced Resting Heart Rate: 60 bpm Resting Blood Pressure: 163/83mmHg Pretest Chest Pain: No chest pain Nurse/Tech Notes Lungs CTA, Heart tones regular. Consent: The procedure was explained to the patient in lay terms. Informed consent was witnessed. Ernaldo eout was entered into [employer]. History and Stress Test performed by MERRY Babin Pharm. Details Pharmacologic stress testing was performed using 0.4mg per 5ml of regadenoson given intravenously ove r 7-10 seconds. POST EXERCISE Reason for Termination: Infusion complete Max HR: 108 bpm Max Blood Pressure: 132/59mmHg Blood Pressure response to exercise: Normal blood pressure response during stress. Heart Rate response to exercise: WNL Chest Pain: No. Arrhythmia: No. ST Change: No. INTERPRETATION Stress EKG Conclusion: Baseline EKG showed atrial paced rhythm. Nondiagnostic changes at peak stress . No arrhythmias. Imaging Protocol IMAGE PROTOCOL: Rest Tc-99m/stress Tc-99m 1 day Rest: Stress: Viability: Radiopharm.Tc99m PgqwxxcdfSy33p Sestamibi Rldx21sKh 33mCi Duration 13min. 13min. Img Date 04/14/2020 04/14/2020 Inj-Img Qoam38bzw. 60min. Rest Admin Site:IV - Left AntecubitalAdministrator:MERRY Babin Stress Admin Site: IV - Left AntecubitalAdministrator: MERRY Babin STRESS DATA End Diast. Vol.98.0mlLVEDV index BSA43.0ml End Syst. Vol.21.0mlLVESV index BSA9.0ml Myocardial Uafi756.0gEject. Dhgemnsr74.0% Stress Scores Regional WT0.00Summed WT10.00 Regional WM0.00Summed WM0.00 Study quality was good. Left Ventricular size was Normal at Rest and Stress. Lung uptake was . Left Ventricular ejection fraction is 78%. The rest and stress images show normal perfusion, normal contraction and thickening. LV Perf. Quant 17 Seg. SSS2.00 17 Seg. SRS1.00 17 Seg. SDS1.00 Stress Defect Extent (% LAD)0.00Rest Defect Extent (% LAD)0.00Rev. Defect Extent (% LAD)0.00 Stress Defect Extent (% LCX) 0.00Rest Defect Extent (% LCX)0.00Rev. Defect Extent (% LCX)0.00 Stress Defect Extent (% RCA)0.00Rest Defect Extent (% RCA)0.00Rev. Defect Extent (% RCA)0.00 Stress Defect Extent (% SCOOBY)0.00Rest Defect Extent (% SCOOBY)0.00Rev. Defect Extent (% SCOOBY)0.00 Conclusion 1. Regadenoson cardioisotope stress test did not show any evidence of ischemia or infarct. 2. Normal left ventricular systolic function with ejection fraction calculated at 78%. 3. Low risk for cardiac events. Signed by : Prasanna Hunter, Electronically Approved : 04/14/2020 12:33:58
== END | disposition home or self-care (01) ==
LOC: NM 09:16
PROVIDERS: ATTEND Internal Medicine Cardiovascular Disease
DX: I48.0 Paroxysmal atrial fibrillation (principal)
CPT/HCPCS: 78452; 93017; A9500; J2785

== ENCOUNTER → 2020-12-27 | Outpatient (CLI) | payer MEDICARE ==
[~2020-12-27] MED LIST changes: -AMIO200T4 PO; +AMIO200T6 PO; +AMLO-187 PO; -AMLO10TA8 PO; -ISOS30TA4 PO; +ISOS30TA68 PO; -REGADENOSON 0.4 MG/5 ML DISP.SYRIN. IV ONE
--- NOTE | 2020-12-27 13:22 | CARD ---
MR#: [id number] Date of Study: 12/27/2020 Ordering Physician: PRASANNA HUNTER, Referring Physician: PRASANNA HUNTER, Tech: Beckie Henderson RDCS APPROVED REPORT EXAM: Two-dimensional and M-mode echocardiogram with Doppler and color Doppler. Other Information Quality : Good INDICATION Paroxysmal Atrial Fibrillation, Pacemaker 2D DIMENSIONS RVDd2.7 (2.9-3.5cm)Left Atrium(2D)3.7 (1.6-4.0cm) IVSd0.8 (0.7-1.1cm)Aortic Root(2D)2.6 (2.0-3.7cm) LVDd5.2 (3.9-5.9cm)LVOT Diameter2.1 (1.8-2.4cm) PWd0.8 (0.7-1.1cm)LVDs3.9 (2.5-4.0cm) FS (%) 25.8 %SV66.6 ml LVEF(%)50.4 (>50%) Aortic Valve AoV Peak Kleber.145.0cm/sAoV VTI30.9cm AO Peak GR.8.4mmHgLVOT Peak Kleber.134.4cm/s LVOT VTI 32.30cmAO Mean GR.4mmHg KRYSTIN (VMAX)3.26bs0OWE (VTI)3.64cm2 Mitral Valve MV E Uargzczp04.3cm/sMV DECEL SEBM701vp MV A Dplusgps709.4cm/sMV LPG85yf E/A Ratio0.7MVA (PHT)2.25cm2 TDI E/Lateral E'8.8E/Medial E'12.3 Tricuspid Valve TR P. Fjryklmb005iu/sRAP HMJKVSQL9fzOv TR Peak Gr.25eiJuTYFT10rfCh Pulmonary Vein S1 Dytnoygp66.2cm/sD2 Itrsfxwn53.5cm/s LEFT VENTRICLE The left ventricle is normal size. There is normal left ventricular wall thickness. The left ventricu lar systolic function is normal. The Ejection Fraction is 55-60%. There is normal LV segmental wall m otion. Transmitral Doppler flow pattern is Grade I-abnormal relaxation pattern. RIGHT VENTRICLE The right ventricle is normal size. The right ventricular systolic function is normal. There is a pac emaker lead in the right ventricle. ATRIA The left atrium size is normal. The right atrium size is normal. A pacemaker is seen in the right atr ium consistent with history. The interatrial septum is intact with no evidence for an atrial septal d efect or patent foramen ovale as noted on 2-D or Doppler imaging. AORTIC VALVE The aortic valve is calcified but opens well. Doppler and Color Flow revealed no significant aortic r egurgitation. There is no significant aortic valvular stenosis. MITRAL VALVE The mitral valve is normal in structure and function. There is no evidence of mitral valve prolapse. There is no mitral valve stenosis. Doppler and Color-flow revealed mild mitral regurgitation. TRICUSPID VALVE The tricuspid valve is normal in structure and function. Doppler and Color Flow revealed mild tricusp id regurgitation. There is moderate pulmonary hypertension. The PA pressure was estimated at 45 mmHg. There is no tricuspid valve stenosis. PULMONIC VALVE The pulmonic valve is not well visualized. Doppler and Color Flow revealed no pulmonic valvular regur gitation. There is no pulmonic valvular stenosis. GREAT VESSELS The aortic root is normal in size. The ascending aorta is normal in size. The IVC was not visualized. PERICARDIAL EFFUSION There is no evidence of significant pericardial effusion. Critical Notification Critical Value: No <Conclusion> The left ventricular systolic function is normal. The Ejection Fraction is 55-60%. There is normal LV segmental wall motion. Transmitral Doppler flow pattern is Grade I-abnormal relaxation pattern. Pacer lead noted RA/RV. Mild mitral regurgitation. Mild tricuspid regurgitation. The PA pressure was estimated at 45 mmHg. There is no evidence of significant pericardial effusion. Signed by : Prasanna Hunter, Electronically Approved : 12/27/2020 13:22:08
== END ==
LOC: ECHO 08:38
PROVIDERS: ATTEND Internal Medicine Cardiovascular Disease
DX: I08.3 Combined rheumatic disorders of mitral, aortic and tricuspid valves (principal); I48.0 Paroxysmal atrial fibrillation; Z95.0 Presence of cardiac pacemaker
CPT/HCPCS: 93306

== ENCOUNTER 2021-02-07 12:05 | Inpatient (IN) | payer MEDICARE ==
[~2021-02-07] VITALS: Ht 175.3 cm; Wt 118.5 kg
[2021-02-07 13:02] LABS: BASO % 1 % (0-3); EOS # 0.2 x10^3/uL (0.0-0.7); EOS % 5 % (0-3); HEMATOCRIT 38.4 % (39.0-53.0); HEMOGLOBIN 12.8 g/dL (13.0-17.5); LYMPH # 1.1 x10^3/uL (1.0-4.8); LYMPH % 27 % (24-48); MEAN CORPUSCULAR HEMOGLOBIN 31 pg (25-35); MEAN CORPUSCULAR HGB CONC 33 g/dL (31-37); MEAN CORPUSCULAR VOLUME 93 fL (79-100); MONO # 0.5 x10^3/uL (0.0-1.1); MONO % 12 % (0-9); NEUT # 2.3 x10^3/uL (1.8-7.7); NEUT % 55 % (31-73); PLATELET COUNT 181 x10^3/uL (140-400); RED BLOOD COUNT 4.11 x10^6/uL (4.30-5.70); RED CELL DISTRIBUTION WIDTH 14.6 % (11.5-14.5); WHITE BLOOD COUNT 4.2 x10^3/uL (4.0-11.0)
[2021-02-07 13:18] LABS: CALCIUM 9.1 mg/dL (8.5-10.1); CREATININE 1.5 mg/dL (0.7-1.3); GFR 53.3; POTASSIUM 4.2 mmol/L (3.5-5.1)
[2021-02-07 13:22] LABS: PROTHROMBIN TIME PATIENT 15.2 SEC (11.7-14.0)
[2021-02-07 13:31] LABS: ALBUMIN 3.4 g/dL (3.4-5.0); TOTAL BILIRUBIN 0.3 mg/dL (0.2-1.0); TOTAL PROTEIN 6.9 g/dL (6.4-8.2)
--- NOTE | 2021-02-07 13:33 | PHYS DOC ---
Past Medical History Past Medical History: Arrhythmia, Cancer, High Cholesterol, Hypertension, Other Additional Past Medical Histor: colon cancer, prostate cancer Past Surgical History: Cholecystectomy, Colectomy, Hip Replacement, Pacemaker, Other Additional Past Surgical Histo: prostate surgery Smoking Status: Former Smoker Alcohol Use: None Drug Use: None General Adult EDM: Chief Complaint: ABDOMINAL PAIN HPI: HPI: Patient is a 89 year old male who presented to ER due to abdominal pain off and on for a month. The pain become more severe since last Friday. Patient went to see his doctor today, told him about his symptoms. His doctor to order a CT scan of his abdomen pelvis without contrast done a diagnostic imaging center. CT scan showed pneumatosis intestinalis with internal normal area identified within multiple small bowel loops therefore patient was called to come to ER for evaluation. Patient denies any nausea vomiting, patient said he is not in much pain at this time. Patient denies any cough or fever. Review of Systems: Review of Systems: Constitutional: Denies fever or chills. [] Eyes: Denies change in visual acuity. [] HENT: Denies nasal congestion or sore throat. [] Respiratory: Denies cough or shortness of breath. [] Cardiovascular: Denies chest pain or edema. [] GI: Positive for abdominal pain, no nausea vomiting : Denies dysuria. [] Musculoskeletal: Denies back pain or joint pain. [] Integument: Denies rash. [] Neurologic: Denies headache, focal weakness or sensory changes. [] Endocrine: Denies polyuria or polydipsia. [] Lymphatic: Denies swollen glands. [] Psychiatric: Denies depression or anxiety. [] Heart Score: C/O Chest Pain: N/A Risk Factors: Risk Factors: DM, Current or recent (<one month) smoker, HTN, HLP, family history of CAD, obesity. Risk Scores: Score 0 - 3: 2.5% MACE over next 6 weeks - Discharge Home Score 4 - 6: 20.3% MACE over next 6 weeks - Admit for Clinical Observation Score 7 - 10: 72.7% MACE over next 6 weeks - Early Invasive Strategies Allergies: Allergies: Allergies Coded Allergies Type Severity Reaction Last Updated Verified Ylkvrco-Zbe-Fhu Reductase Inhibitor Allergy Intermediate Rash 11/09/13 Yes Physical Exam: PE: Constitutional: Well developed, well nourished, no acute distress, non-toxic appearance. [] HENT: Normocephalic, atraumatic, bilateral external ears normal, oropharynx moist, no oral exudates, nose normal. [] Eyes: PERRLA, EOMI, conjunctiva normal, no discharge. [] Neck: Normal range of motion, no tenderness, supple, no stridor. [] Cardiovascular:Heart rate regular rhythm, no murmur [] Lungs & Thorax: Bilateral breath sounds clear to auscultation [] Abdomen: Bowel sounds normal, soft, diffused tenderness with distension, no masses, no pulsatile masses. [] Skin: Warm, dry, no erythema, no rash. [] Back: No tenderness, no CVA tenderness. [] Extremities: No tenderness, no cyanosis, no clubbing, ROM intact, no edema. [] Neurologic: Alert and oriented X 3, normal motor function, normal sensory funct ion, no focal deficits noted. [] Psychologic: Affect normal, judgement normal, mood normal. [] Current Patient Data: Labs: Laboratory Tests Test 02/07/21 12:45 White Blood Count 4.2 x10^3/uL (4.0-11.0) Red Blood Count 4.11 x10^6/uL (4.30-5.70) L Hemoglobin 12.8 g/dL (13.0-17.5) L Hematocrit 38.4 % (39.0-53.0) L Mean Corpuscular Volume 93 fL (79-100) Mean Corpuscular Hemoglobin 31 pg (25-35) Mean Corpuscular Hemoglobin Concent 33 g/dL (31-37) Red Cell Distribution Width 14.6 % (11.5-14.5) H Platelet Count 181 x10^3/uL (140-400) Neutrophils (%) (Auto) 55 % (31-73) Lymphocytes (%) (Auto) 27 % (24-48) Monocytes (%) (Auto) 12 % (0-9) H Eosinophils (%) (Auto) 5 % (0-3) H Basophils (%) (Auto) 1 % (0-3) Neutrophils # (Auto) 2.3 x10^3/uL (1.8-7.7) Lymphocytes # (Auto) 1.1 x10^3/uL (1.0-4.8) Monocytes # (Auto) 0.5 x10^3/uL (0.0-1.1) Eosinophils # (Auto) 0.2 x10^3/uL (0.0-0.7) Basophils # (Auto) 0.0 x10^3/uL (0.0-0.2) Sodium Level 143 mmol/L (136-145) Potassium Level 4.2 mmol/L (3.5-5.1) Chloride Level 108 mmol/L (98-107) H Carbon Dioxide Level 28 mmol/L (21-32) Anion Gap 7 (6-14) Blood Urea Nitrogen 21 mg/dL (8-26) Creatinine 1.5 mg/dL (0.7-1.3) H Estimated GFR (Cockcroft-Gault) 53.3 BUN/Creatinine Ratio 14 (6-20) Glucose Level 119 mg/dL (70-99) H Lactic Acid Level 1.5 mmol/L (0.4-2.0) Calcium Level 9.1 mg/dL (8.5-10.1) Magnesium Level Pending Total Bilirubin Pending Aspartate Amino Transferase (AST) Pending Alanine Aminotransferase (ALT) Pending Alkaline Phosphatase Pending Total Protein Pending Albumin Pending Albumin/Globulin Ratio Pending Laboratory Tests 02/07/21 12:45 Laboratory Tests 02/07/21 12:45 Vital Signs: Vital Signs Date Time Temp Pulse Resp B/P (MAP) Pulse Ox O2 Delivery O2 Flow Rate FiO2 02/07/21 12:33 98.2 66 18 171/85 (113) 96 Room Air 98.2 EKG: EKG: [] Radiology/Procedures: Radiology/Procedures: [][facility] [address] [place] [address] IMAGING REPORT Signed PATIENT: MARITA ARCOS ACCOUNT: [id number] : 1930 LOCATION: ER AGE: 89 SEX: M EXAM STATUS: REG ER ORD. PHYSICIAN: DK GODINEZ DO REASON: abdominal pain PROCEDURE: CT ABD PELV W/ IV CONTRST ONLY Exam: CT abdomen/pelvis with intravenous contrast Indication: Abdominal pain Comparison: CT abdomen pelvis 08/06/2016 Technique: Helical CT imaging performed of the abdomen and pelvis after the intravenous administration of 60 mL Omnipaque 300 contrast. Sagittal and coronal reformats were obtained. One or more of the following individualized dose reduction techniques were utilized for this examination: 1. Automated exposure control 2. Adjustment of the mA and/or kV according to patient size 3. Use of iterative reconstruction technique. Findings: Lower chest: Mild atelectasis in the lung bases. Heart is normal size. Pacemaker/AICD leads noted. Liver: Calcified hepatic granulomas. There is a geographic area of relative hyperattenuation in the posterior right hepatic lobe, indeterminate. Gallbladder/Biliary Tree: Post cholecystectomy. Bile ducts are normal. Pancreas: There is diffuse pancreatic atrophy Spleen: Calcified splenic granulomas. No splenomegaly. Adrenal Glands: Normal Kidneys/Ureters/Bladder: Kidneys are mildly atrophic with multiple bilateral hypodense lesions, the largest on the right measures 3.7 mm and is consistent with a simple cyst minimally complicated cyst. The largest on the left measures 3 cm and is also consistent with a simple cyst. No hydronephrosis. Visualized portion of ureters are normal. Distal ureters and bladder are obscured by hip prostheses. Reproductive Organs: Obscured by hip prostheses. Stomach, small bowel, and colon: There is dilation of fluid-filled small bowel, greatest in the left upper quadrant up to 3.7 cm. There is small bowel pneumatosis and pneumoperitoneum along loops of small bowel in the left mid abdomen and right lower quadrant. Additional pneumoperitoneum anterior to the liver and a small amount of free air and a fat-containing ventral hernia. Some of the abnormal small bowel has a clumped appearance and the left mid abdomen where there is a greatest amount of free air (image [id number], series 2). Stomach and colon are unremarkable. Vasculature: No aortic aneurysm. Mild calcified aortic atherosclerosis. Lymph Nodes: No lymphadenopathy. Peritoneum and retroperitoneum: There is pneumoperitoneum, as above. No free fluid. Bones: There are bilateral total hip prostheses. Mild degenerative disc disease. Impression: Mildly dilated small bowel with pneumatosis and pneumoperitoneum suspicious for perforated small bowel obstruction. Site of perforation and obstruction likely in the left midabdomen where there is some clumping of small bowel and the gre atest amount of free air. FOR INTERNAL CODING PURPOSES Critical result: Findings discussed with at 02/07/2021 225 PM. RESULT CODE: (C) Electronically signed by: Luz Willson MD (02/07/2021 2:34 PM) [id number] DICTATED and SIGNED BY: LUZ WILLSON MD DATE: 02/07/21 [id number] Course & Med Decision Making: Course & Med Decision Making Pertinent Labs and Imaging studies reviewed. (See chart for details) Patient is an 89-year-old male who presented to ER due to abdominal pain, CT sca n abdomen pelvic shown pneumatosis and pneumoperitoneum suspicious for perforated small bowel obstruction, discussed with general surgeon on-call Dr. Fabián Rasmussen who came to ER to see the patient at 250pm. Dr. Rasmussen recommended no NG tube placement for now. Discussed with patient family physician Dr. House who agreed to admit the patient Dragon Disclaimer: Dragon Disclaimer: This electronic medical record was generated, in whole or in part, using a voice recognition dictation system. Departure Departure Impression: Primary Impression: Perforated abdominal viscus Additional Impressions: Perforated bowel Pneumatosis intestinalis Small bowel obstruction Disposition: ADMITTED INPATIENT Admitting Physician: Brent House Condition: STABLE Referrals: BRENT HOUSE MD (PCP) DK GODINEZ DO Feb 07, 2021 13:33
[2021-02-07] MEDS ORDERED: IOHEXOL 300 MG/ML 100ML VIAL. IV ONE (13:45)
[2021-02-07] MEDS ORDERED: CONTRAST GIVEN. MC PRN (14:00)
[2021-02-07] MEDS ORDERED: PIP/TAZO PER PHARMACY MC PRN (14:30)
--- NOTE | 2021-02-07 14:37 | RAD ---
Exam: CT abdomen/pelvis with intravenous contrast Indication: Abdominal pain Comparison: CT abdomen pelvis 08/06/2016 Technique: Helical CT imaging performed of the abdomen and pelvis after the intravenous administratio n of 60 mL Omnipaque 300 contrast. Sagittal and coronal reformats were obtained. One or more of the following individualized dose reduction techniques were utilized for this examinat ion: 1. Automated exposure control 2. Adjustment of the mA and/or kV according to patient size 3. Use of iterative reconstruction technique. Findings: Lower chest: Mild atelectasis in the lung bases. Heart is normal size. Pacemaker/AICD leads noted. Liver: Calcified hepatic granulomas. There is a geographic area of relative hyperattenuation in the p osterior right hepatic lobe, indeterminate. Gallbladder/Biliary Tree: Post cholecystectomy. Bile ducts are normal. Pancreas: There is diffuse pancreatic atrophy Spleen: Calcified splenic granulomas. No splenomegaly. Adrenal Glands: Normal Kidneys/Ureters/Bladder: Kidneys are mildly atrophic with multiple bilateral hypodense lesions, the l argest on the right measures 3.7 mm and is consistent with a simple cyst minimally complicated cyst. The largest on the left measures 3 cm and is also consistent with a simple cyst. No hydronephrosis. V isualized portion of ureters are normal. Distal ureters and bladder are obscured by hip prostheses. Reproductive Organs: Obscured by hip prostheses. Stomach, small bowel, and colon: There is dilation of fluid-filled small bowel, greatest in the left upper quadrant up to 3.7 cm. There is small bowel pneumatosis and pneumoperitoneum along loops of sma ll bowel in the left mid abdomen and right lower quadrant. Additional pneumoperitoneum anterior to th e liver and a small amount of free air and a fat-containing ventral hernia. Some of the abnormal smal l bowel has a clumped appearance and the left mid abdomen where there is a greatest amount of free ai r (image [id number], series 2). Stomach and colon are unremarkable. Vasculature: No aortic aneurysm. Mild calcified aortic atherosclerosis. Lymph Nodes: No lymphadenopathy. Peritoneum and retroperitoneum: There is pneumoperitoneum, as above. No free fluid. Bones: There are bilateral total hip prostheses. Mild degenerative disc disease. Impression: Mildly dilated small bowel with pneumatosis and pneumoperitoneum suspicious for perforated small shahram l obstruction. Site of perforation and obstruction likely in the left midabdomen where there is some clumping of small bowel and the greatest amount of free air. FOR INTERNAL CODING PURPOSES Critical result: Findings discussed with at 02/07/2021 225 PM. RESULT CODE: (C) Electronically signed by: Luz Willson MD (02/07/2021 2:34 PM) [id number]
[2021-02-07] MEDS ORDERED: PIPERACILLIN/TAZOBACTAM 2.25 GM in IV NORMAL SALINE 50ML 50 ML IV ONE (14:45)
[2021-02-07] MEDS ORDERED: MORPHINE SULFATE 4 MG/ML VIAL. IV PRN (15:00)
[2021-02-07] MEDS ORDERED: ONDANSETRON PF 4 MG/2 ML VIAL. IV PRN (15:00)
[2021-02-07] MEDS ORDERED: ACETAMINOPHEN 650 MG SUPP.RECT. PR PRN (15:45)
[2021-02-07] MEDS ORDERED: hydrALAZINE 20 MG/ML VIAL. IVP PRN (15:45)
[2021-02-07] MEDS ORDERED: ONDANSETRON PF 4 MG/2 ML VIAL. IVP PRN (15:45)
[2021-02-07] MEDS: IV NORMAL SALINE 1000ML BAG 1,000 ML IV SCH (15:59)
--- NOTE | 2021-02-07 16:09 | PDOC ---
Provider Note Date of Service: DATE: 02/07/21 TIME: 16:09 Provider Note history and physical dictated # [id number] Justifications for Admission Other Justification LAN DOWLING MD Feb 07, 2021 16:09
--- NOTE | 2021-02-07 16:38 | PDOC2 ---
GI CONSULT Date of Service: DATE: 02/07/21 TIME: 16:23 Reason For Consult: pneumatosis intestinalis, possible perforation HPI: HPI: Pleasant 89 y/o male seen in ER. Reports intermittent "nauseating pain around the navel" intermittently for about 3-4 weeks. Once was bothersome enough he couldn't sleep. Last occurred 1 week ago. No pain since then. Saw PCP at one point and had abnormal outpt CT so was sent to ER. Imaging here concerning for perforated SBO. Occasional heartburn - untreated. No dysphagia, vomiting, diarrhea, constipation, or bleeding. Has probably gained weight. Normal stool this morning. Sometimes has to take a stool softener but not for awhile. Records indicate EGD in 2012 w/ erosive gastritis (negative for H. pylori). H/o colon cancer s/p resection (says done in at this facility). Can document colonoscopy by Dr. Covarrubias in 2013 w/ splenic flexure polyp (path unavailable), diverticulosis, and internal hemorrhoids. He also reports normal colonoscopy @ [facility] last year. S/p cholecystectomy. Chart indicates h/o liver biopsy/hemangioma. H/o SBO (admitted here - resolved w/o surgery) - he says he really doesn't want one of those tubes in his nose again. No pancreas or PUD history. No NSAIDs. H/o A Fib and CAD on Eliquis and ASA. PMH: PMH: A Fib, CAD, HTN, HLD, CKD, colon cancer, prostate cancer, "I was supposed to have thyroid surgery before COVID" pacemaker, cholecystectomy, colon cancer, prostatectomy FH: Family History: No pertinent hx Social History: Smoke: Quit (remote) ALCOHOL: none Drugs: None ROS: GEN: Denies fevers, chills, sweats HEENT: Denies blurred vision, sore throat CV: Denies chest pain RESP: Denies shortness of air, cough GI: Per HPI : Denies hematuria, dysuria ENDO: +weight gain NEURO: Denies confusion, dizziness MSK: Denies weakness, joint pain/swelling SKIN: Denies jaundice, pruritus Vitals: Vitals: Vital Signs Date Time Temp Pulse Resp B/P (MAP) Pulse Ox O2 Delivery O2 Flow Rate FiO2 02/07/21 12:33 98.2 66 18 171/85 (113) 96 Room Air 98.2 Labs: Labs: Laboratory Tests Test 02/07/21 12:45 02/07/21 14:35 White Blood Count 4.2 x10^3/uL (4.0-11.0) Red Blood Count 4.11 x10^6/uL (4.30-5.70) Hemoglobin 12.8 g/dL (13.0-17.5) Hematocrit 38.4 % (39.0-53.0) Mean Corpuscular Volume 93 fL (79-100) Mean Corpuscular Hemoglobin 31 pg (25-35) Mean Corpuscular Hemoglobin Concent 33 g/dL (31-37) Red Cell Distribution Width 14.6 % (11.5-14.5) Platelet Count 181 x10^3/uL (140-400) Neutrophils (%) (Auto) 55 % (31-73) Lymphocytes (%) (Auto) 27 % (24-48) Monocytes (%) (Auto) 12 % (0-9) Eosinophils (%) (Auto) 5 % (0-3) Basophils (%) (Auto) 1 % (0-3) Neutrophils # (Auto) 2.3 x10^3/uL (1.8-7.7) Lymphocytes # (Auto) 1.1 x10^3/uL (1.0-4.8) Monocytes # (Auto) 0.5 x10^3/uL (0.0-1.1) Eosinophils # (Auto) 0.2 x10^3/uL (0.0-0.7) Basophils # (Auto) 0.0 x10^3/uL (0.0-0.2) Prothrombin Time 15.2 SEC (11.7-14.0) Prothromb Time International Ratio 1.2 (0.8-1.1) Activated Partial Thromboplast Time 34 SEC (24-38) Sodium Level 143 mmol/L (136-145) Potassium Level 4.2 mmol/L (3.5-5.1) Chloride Level 108 mmol/L (98-107) Carbon Dioxide Level 28 mmol/L (21-32) Anion Gap 7 (6-14) Blood Urea Nitrogen 21 mg/dL (8-26) Creatinine 1.5 mg/dL (0.7-1.3) Estimated GFR (Cockcroft-Gault) 53.3 BUN/Creatinine Ratio 14 (6-20) Glucose Level 119 mg/dL (70-99) Lactic Acid Level 1.5 mmol/L (0.4-2.0) Calcium Level 9.1 mg/dL (8.5-10.1) Magnesium Level 2.0 mg/dL (1.8-2.4) Total Bilirubin 0.3 mg/dL (0.2-1.0) Aspartate Amino Transf (AST/SGOT) 16 U/L (15-37) Alanine Aminotransferase (ALT/SGPT) 14 U/L (16-63) Alkaline Phosphatase 64 U/L (46-116) Total Protein 6.9 g/dL (6.4-8.2) Albumin 3.4 g/dL (3.4-5.0) Albumin/Globulin Ratio 1.0 (1.0-1.7) SARS-CoV-2 Antigen (Rapid) Negative (NEGATIVE) Allergies: Coded Allergies: Eoinoka-Rde-Tdw Reductase Inhibitor (Verified Allergy, Intermediate, Rash, 11/09/13) Medications: Current Medications Medications (Trade) Dose Ordered Sig/Afsaneh Route PRN Reason Start Time Stop Time Status Last Admin Dose Admin Piperacillin Sod/ Tazobactam Sod 2.25 gm/Sodium Chloride 50 ml @ 100 mls/hr 1X ONCE IV 02/07/21 14:45 02/07/21 15:14 DC 02/07/21 15:59 Sodium Chloride 1,000 ml @ 75 mls/hr [id number] IV 02/07/21 15:00 02/08/21 14:59 02/07/21 15:59 Imaging: Imaging: CT A/P Impression: Mildly dilated small bowel with pneumatosis and pneumoperitoneum suspicious for perforated small bowel obstruction. Site of perforation and obstruction likely in the left midabdomen where there is some clumping of small bowel and the greatest amount of free air. CXR pending PE: GEN: NAD HEENT: Atraumatic, PERRL LUNGS: CTAB HEART: RRR ABD: large/round, non-tender, quiet BS EXTREMITY: No edema SKIN: No rashes, no jaundice NEURO/PSYCH: A & O 3 A/P: A/P: Intermittent mid abdominal discomfort Abnormal CT - mildly dilated SB with pneumatosis and pneumoperitoneum suspicious for perforated SBO Occasional heartburn H/o colon cancer s/p resection CRC screen - reports normal colonoscopy last year Diverticulosis, hemorrhoids H/o SBO S/p cholecystectomy H/o hepatic hemangioma H/o prostate cancer H/o A Fib on Eliquis and ASA -- Currently without pain or n/v. Continue per surgery. Agree w/ IV acid-reservation clerk - already started on famotidine. TARIK PORTER Feb 07, 2021 16:37
--- NOTE | 2021-02-07 17:16 | RAD ---
XR CHEST 1V History: Reason: follow up on pneumatosis intestinalis 408 / Spl. Instructions: / History: Pain Comparison: July 30, [address] February 07, 2021 abdomen and pelvis. TECHNIQUE: AP view the chest. Findings: No consolidation or pleural effusion. Normal heart size. No pneumothorax. Impression: 1. No acute cardiopulmonary process. Electronically signed by: Giovani Chavsi DO (02/07/2021 5:14 PM) [id number]
--- NOTE | 2021-02-07 18:41 | HP ---
ADMIT DATE: 02/07/2021 HISTORY OF PRESENT ILLNESS: The patient is an 89-year-old morbidly obese -Y[place]i male with history of coronary artery disease, hypertension, hyperlipidemia, paroxysmal atrial fibrillation, treated with Eliquis, who notes a 4-1/2 week history of intermittent abdominal pain. He was seen in the office on 02/02/2021 and laboratory tests including a CBC and a CMP were done, which were unremarkable and CAT scan of the abdomen and pelvis, which was done earlier today, 02/07 as an outpatient and the report from the radiologist showed pneumatosis intestinalis with intramural air noted in multiple small bowel loops. There was no small bowel thickening or inflammation around the small bowel, but he had a small amount of free intraperitoneal air noted in the suprahepatic and right subdiaphragmatic space as well as the small bowel mesentery and within the left midline ventral abdominal wall hernia. The radiologist recommended a stat surgical consultation. He did have some plaque noted in the celiac and superior mesenteric artery origins with probable narrowing of the celiac artery origin. The patient was noted to have a small ventral midline abdominal wall hernia containing mesenteric fat and a small amount of free intraperitoneal air. The patient was sent to the [facility] Emergency Room where he was evaluated. He did not have any abdominal pain or tenderness. It should be noted that he did have significant abdominal pain on 01/31/2021. He could not sleep that night and also the Friday before that, which would have been 01/28/2021. Also at night, he could not sleep because of significant periumbilical and lower abdominal pain. When I saw him in the office on 02/02, he denied having any abdominal pain or tenderness. He was sent to the Emergency Room with results of the CAT scan. He was evaluated by the Emergency Room doctor. His white count was normal. He was seen by Dr. Rasmussen but I do not see a note that Dr. Rasmussen did not want an NG tube placed. He had a repeat CAT scan of the abdomen and pelvis at this time with IV contrast at [facility] today and he had similar findings. He had dilatation of the small bowel greatest in the left upper quadrant. He had small bowel pneumatosis. He also had a pneumoperitoneum along the loops of the small bowel in the left mid abdomen and right lower quadrant. He also had some pneumoperitoneum noted in the liver and a small amount of free air in the fat containing ventral hernia. He had an abnormal small bowel clumped appearance in the left mid abdomen where he had the greatest amount of free air. The stomach and colon were unremarkable. He was noted to have bilateral total hip prosthesis. The patient had no free fluid in the retroperitoneum. He therefore was admitted to the hospital and will be made n.p.o. He was started on IV Zosyn in the Emergency Room. He denies any abdominal pain today. He says he has been eating well without any nausea, vomiting, and normal bowel movement for the last 24 hours. Denies any black or bloody stools. ALLERGIES AND INTOLERANCES: HE HAS SIDE EFFECTS TO THE STATINS CAUSING MYALGIAS. HE HAS BEEN ON SEVERAL OF THEM INCLUDING SIMVASTATIN, PRAVASTATIN AND ATORVASTATIN. MEDICATIONS: Include amlodipine 10 mg every day, aspirin 81 mg every day, multiple vitamin every day, Eliquis 5 mg b.i.d., Zetia 10 mg every day, furosemide 20 mg every day, gabapentin 600 mg t.i.d., hydralazine 25 mg t.i.d., Isordil 20 mg t.i.d., losartan 100 mg every day, hydrocodone 5/325 mg 1 at bedtime p.r.n., nitroglycerin 0.4 mg sublingual p.r.n., potassium chloride 20 mEq every day and sotalol 80 mg b.i.d. PAST MEDICAL HISTORY: Significant for coronary artery disease, hypertension, hyperlipidemia, paroxysmal atrial fibrillation treated with Eliquis. He has had colon polyps in the past, reflux esophagitis in 2012. He has a history of colon cancer in the descending colon. He has had osteoarthritis, idiopathic peripheral neuropathy, morbid obesity. He had a colonoscopy in 02/2014. Cardiac pacemaker placed in 2013. He had a cholecystectomy, prostate surgery, arthrocentesis of a right hip trochanteric bursa. He had bilateral hip replacements. SOCIAL HISTORY: He does not drink alcohol nor does he smoke cigarettes. FAMILY HISTORY: Positive for brother had diabetes. Mother had coronary artery disease. REVIEW OF SYSTEMS: GENERAL: He denies any fever, chills or sweats. CARDIOVASCULAR: No chest pain. PULMONARY: No cough or shortness of breath. GASTROINTESTINAL: Had abdominal pain last week, couple of times at night. NEUROLOGIC: No focal weakness. ENDOCRINE: No diabetes mellitus. SKIN: No rashes. Rest of systems reviewed are negative except as stated in history of present illness. PHYSICAL EXAMINATION: VITAL SIGNS: Temperature is 98.2 degrees, heart rate 66, respiratory rate 18, blood pressure 171/85, oxygen saturation 96% on room air. HEENT: Eyes: Gaze is conjugate. Mouth: Tongue is midline. NECK: There is no cervical lymphadenopathy or thyroid enlargement. HEART: Reveals an S1, S2. There is no S3 or murmur. LUNGS: Clear. ABDOMEN: Bowel sounds were heard. Abdomen is obese, somewhat distended. It is not tender. There is no hepatosplenomegaly or masses. EXTREMITIES: Lower extremities without edema. SKIN: No rashes. NEUROLOGIC: Revealed no focal weakness of the extremities or facial asymmetry. LABORATORY DATA: Review of his laboratory tests: White count 4.2, hemoglobin 12.8, platelet count 181,000, 55 polys and 27 lymphocytes. INR 1.2 with a PTT of 34. Sodium 143, potassium 4.2, chloride 108, total CO2 of 28, BUN 21, creatinine 1.5, blood sugar 119. Lactic acid level was 1.5. Liver function tests were normal. Albumin 3.4. COVID-19 test was negative. EKG and chest x-ray was not done. CAT scan of the abdomen and pelvis is as stated above, done with IV contrast. ASSESSMENT: 1. Pneumatosis intestinalis. 2. Suspected small bowel perforation. 3. Coronary artery disease. 4. Hypertension. 5. Hyperlipidemia. 6. Paroxysmal atrial fibrillation. 7. Morbid obesity. 8. Ventral abdominal hernia. 9. Acute kidney injury. PLAN: Plan at this time is to consult the surgeon and the patient has been seen by Dr. Rasmussen. I do not see a note yet from him. We will consult Dr. Nelson Mejia for Infectious Disease and will also consult the md ophthalmologist also for his paroxysmal atrial fibrillation, put him on telemetry. His blood pressure is high. We will order some hydralazine 10 mg IV every 4 hours p.r.n. Systolic blood pressure is 160 or higher and we will also put him on a nitroglycerin patch. His heart rate is in the low 60s and at the office oral medications, he has to be n.p.o. He does take sotalol 80 mg b.i.d. We will hold off on it, but considered use of IV metoprolol 2.5 mg every 6 hours but I will defer that to the md ophthalmologist. We will order some Lovenox for deep vein thrombosis prophylaxis. Estimated GFR is about 53.3. We will start on some IV Pepcid 20 mg once a day. He will be n.p.o. Started him on IV fluids, D5 one-half normal saline, 20 mEq of potassium chloride at 75 mL an hour. IV Zosyn will be continued. We will consult the Infectious Disease doctor, Dr. Nelson Mejia. He order some morphine 2 mg IV every 4 hours if he did have abdominal pain. IV Zosyn if he has nausea on a p.r.n. basis. Repeat his CBC, CMP tomorrow. LAN DOWLING MD DR: CATARINA/mike JOB#: [id number] / [id number]
--- NOTE | 2021-02-07 19:19 | EKG ---
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
[2021-02-07 19:44] VITALS: BP 159/78
--- NOTE | 2021-02-07 20:00 | NUR ---
Admit from ED to [facility] room 202 via [facility]. A/O x 4. Pleasant. Denies nausea or pain. Stood from [facility] and ambulated to bed in room with steady gait. Oriented to room and call light. Reviewed POC to include IVF, IV ABx and NPO. Verbalized understanding. Resting in bed. Call light at hand.
--- NOTE | 2021-02-07 21:08 | PDOC2 ---
CONSULT Date of Consult Date of Consult DATE: 02/07/21 TIME: 21:01 Reason for Consult Reason for Consult: Abnormal CT Referring Physician Referring Physician: Harsh Identification/Chief Complaint Chief Complaint Abdominal pain Source Source: Chart review, Patient History of Present Illness Reason for Visit: 89 yo male seen in the ED for abnormal CT scan finding of the abdomen. Patient states he had periumbilical abdominal pain starting 3-5 days ago. Was seen by PCP who ordered CT scan which showed free air and pneumotosis of the small bowel. Patient was sent to ED for further evaluation. He currently describes no abdominal pain, no nausea or vomiting. Had normal BM earlier today. Past Medical History Cardiovascular: CAD, HTN, Hyperlipidemia Pulmonary: No pertinent hx CENTRAL NERVOUS SYSTEM: Other GI: GERD Heme/Onc: No pertinent hx Hepatobiliary: No pertinent hx Psych: No pertinent hx Musculoskeletal: Osteoarthritis Rheumatologic: No pertinent hx Infectious disease: No pertinent hx Renal/: Prostate Ca., Other Endocrine: No pertinent hx Past Surgical History Past Surgical History: Pacemaker, Cholecystectomy, Total hip replacement, Other Family History Family History: Heart Disease Social History Quit (remote) ALCOHOL: none Drugs: None Lives: with Family Current Problem List Problem List Problems Medical Problems: (1) Perforated abdominal viscus Status: Acute (2) Perforated bowel Status: Acute (3) Pneumatosis intestinalis Status: Acute (4) Small bowel obstruction Status: Acute Current Medications Current Medications Current Medications Iohexol (Omnipaque 300 Mg/ml) 60 ml 1X ONCE IV ; Start 02/07/21 at 13:45; Stop 02/07/21 at 13:51; Status DC Info (CONTRAST GIVEN -- Rx MONITORING) 1 each PRN DAILY PRN MC SEE COMMENTS; Start 02/07/21 at 14:00; Stop 02/09/21 at 13:59 Piperacillin Sod/ Tazobactam Sod (Zosyn Per Pharmacy) 1 each PRN DAILY PRN MC SEE COMMENTS; Start 02/07/21 at 14:30 Piperacillin Sod/ Tazobactam Sod 2.25 gm/Sodium Chloride 50 ml @ 100 mls/hr 1X ONCE IV Last administered on 02/07/21at 15:59; Start 02/07/21 at 14:45; Stop 02/07/21 at 15:14; Status DC Ondansetron HCl (Zofran) 4 mg PRN Q8HRS PRN IV NAUSEA/VOMITING; Start 02/07/21 at 15:00; Stop 02/07/21 at 15:54; Status DC Morphine Sulfate (Morphine Sulfate) 4 mg PRN Q2HR PRN IV PAIN Last administered on 02/07/21at 18:17; Start 02/07/21 at 15:00; Stop 02/08/21 at 14:59 Sodium Chloride 1,000 ml @ 75 mls/hr [id number] IV Last administered on 02/07/21at 15:59; Start 02/07/21 at 15:00; Stop 02/08/21 at 14:59 Piperacillin Sod/ Tazobactam Sod 2.25 gm/Sodium Chloride 50 ml @ 100 mls/hr Q6HRS IV ; Start 02/08/21 at 00:00 Potassium Chloride/Dextrose/ Sod Cl 1,000 ml @ 75 mls/hr [id number] IV ; Start 02/07/21 at 15:45 Ondansetron HCl (Zofran) 4 mg PRN Q6HRS PRN IVP NAUSEA/VOMITING Last administered on 02/07/21at 18:17; Start 02/07/21 at 15:45 Famotidine (Pepcid Vial) 20 mg DAILY IVP ; Start 02/07/21 at 18:00 Morphine Sulfate (Morphine Sulfate) 2 mg PRN Q4HRS PRN IV PAIN; Start 02/07/21 at 15:45 Acetaminophen (Tylenol Supp) 650 mg PRN Q6HRS PRN HI MILD PAIN / TEMP > 100.3'F; Start 02/07/21 at 15:45 Hydralazine HCl (Apresoline Inj) 10 mg PRN Q4HRS PRN IVP ELEVATED BP, SEE COMMENTS; Start 02/07/21 at 15:45 Nitroglycerin (Nitro-Dur) 1 patch DAILY TD ; Start 02/08/21 at 09:00 Enoxaparin Sodium (Lovenox 40mg Syringe) 40 mg Q24H SQ ; Start 02/08/21 at 09:00 Active Scripts Active Betapace (Sotalol Hcl) 80 Mg Tablet 80 Mg PO BID Ezetimibe 10 Mg Tablet 10 Mg PO DAILY Nitrostat (Nitroglycerin) 0.4 Mg Tab.subl 0.4 Mg SL PRN Q5MIN PRN Reported Docusate Sodium 100 Mg Capsule 1 Cap PO DAILY Gabapentin 600 Mg Tablet 600 Mg PO TID Hydralazine Hcl 25 Mg Tablet 1 Tab PO TID Eliquis (Apixaban) 5 Mg Tablet 5 Mg PO BID Amlodipine Besylate 10 Mg Tablet 10 Mg PO DAILY Aspir 81 (Aspirin) 81 Mg Tablet.dr 1 Tab PO DAILY Potassium Chloride (Potassium Chloride) 20 Meq Tablet.er 20 Meq PO DAILY Hydrochlorothiazide Tablet (Hydrochlorothiazide) 25 Mg Tablet 25 Mg PO DAILY Multi Vitamin Daily (Multivitamin) 1 Each Tablet 1 Each PO DAILY Losartan Potassium 100 Mg Tablet 100 Mg PO DAILY Allergies Allergies: Coded Allergies: Kcpsjiz-Cil-Owg Reductase Inhibitor (Verified Allergy, Intermediate, Rash, 11/09/13) ROS Gastrointestinal: Yes Abdominal Pain Physical Exam General: Alert, Oriented X3, Cooperative, No acute distress HEENT: Atraumatic, EOMI Lungs: Clear to auscultation, Normal air movement Heart: Regular rate, No murmurs Abdomen: Normal bowel sounds, Soft, No tenderness Extremities: No edema Skin: No significant lesion Neuro: Normal speech Psych/Mental Status: Mental status NL Vitals VITALS Vital Signs Date Time Temp Pulse Resp B/P (MAP) Pulse Ox O2 Delivery O2 Flow Rate FiO2 02/07/21 19:44 97.9 59 16 159/78 (105) 92 Room Air 97.9 Labs Labs Laboratory Tests Test 02/07/21 12:45 02/07/21 14:35 White Blood Count 4.2 x10^3/uL (4.0-11.0) Red Blood Count 4.11 x10^6/uL (4.30-5.70) Hemoglobin 12.8 g/dL (13.0-17.5) Hematocrit 38.4 % (39.0-53.0) Mean Corpuscular Volume 93 fL (79-100) Mean Corpuscular Hemoglobin 31 pg (25-35) Mean Corpuscular Hemoglobin Concent 33 g/dL (31-37) Red Cell Distribution Width 14.6 % (11.5-14.5) Platelet Count 181 x10^3/uL (140-400) Neutrophils (%) (Auto) 55 % (31-73) Lymphocytes (%) (Auto) 27 % (24-48) Monocytes (%) (Auto) 12 % (0-9) Eosinophils (%) (Auto) 5 % (0-3) Basophils (%) (Auto) 1 % (0-3) Neutrophils # (Auto) 2.3 x10^3/uL (1.8-7.7) Lymphocytes # (Auto) 1.1 x10^3/uL (1.0-4.8) Monocytes # (Auto) 0.5 x10^3/uL (0.0-1.1) Eosinophils # (Auto) 0.2 x10^3/uL (0.0-0.7) Basophils # (Auto) 0.0 x10^3/uL (0.0-0.2) Prothrombin Time 15.2 SEC (11.7-14.0) Prothromb Time International Ratio 1.2 (0.8-1.1) Activated Partial Thromboplast Time 34 SEC (24-38) Sodium Level 143 mmol/L (136-145) Potassium Level 4.2 mmol/L (3.5-5.1) Chloride Level 108 mmol/L (98-107) Carbon Dioxide Level 28 mmol/L (21-32) Anion Gap 7 (6-14) Blood Urea Nitrogen 21 mg/dL (8-26) Creatinine 1.5 mg/dL (0.7-1.3) Estimated GFR (Cockcroft-Gault) 53.3 BUN/Creatinine Ratio 14 (6-20) Glucose Level 119 mg/dL (70-99) Lactic Acid Level 1.5 mmol/L (0.4-2.0) Calcium Level 9.1 mg/dL (8.5-10.1) Magnesium Level 2.0 mg/dL (1.8-2.4) Total Bilirubin 0.3 mg/dL (0.2-1.0) Aspartate Amino Transf (AST/SGOT) 16 U/L (15-37) Alanine Aminotransferase (ALT/SGPT) 14 U/L (16-63) Alkaline Phosphatase 64 U/L (46-116) Total Protein 6.9 g/dL (6.4-8.2) Albumin 3.4 g/dL (3.4-5.0) Albumin/Globulin Ratio 1.0 (1.0-1.7) SARS-CoV-2 Antigen (Rapid) Negative (NEGATIVE) Laboratory Tests Test 02/07/21 12:45 02/07/21 14:35 White Blood Count 4.2 x10^3/uL (4.0-11.0) Red Blood Count 4.11 x10^6/uL (4.30-5.70) Hemoglobin 12.8 g/dL (13.0-17.5) Hematocrit 38.4 % (39.0-53.0) Mean Corpuscular Volume 93 fL (79-100) Mean Corpuscular Hemoglobin 31 pg (25-35) Mean Corpuscular Hemoglobin Concent 33 g/dL (31-37) Red Cell Distribution Width 14.6 % (11.5-14.5) Platelet Count 181 x10^3/uL (140-400) Neutrophils (%) (Auto) 55 % (31-73) Lymphocytes (%) (Auto) 27 % (24-48) Monocytes (%) (Auto) 12 % (0-9) Eosinophils (%) (Auto) 5 % (0-3) Basophils (%) (Auto) 1 % (0-3) Neutrophils # (Auto) 2.3 x10^3/uL (1.8-7.7) Lymphocytes # (Auto) 1.1 x10^3/uL (1.0-4.8) Monocytes # (Auto) 0.5 x10^3/uL (0.0-1.1) Eosinophils # (Auto) 0.2 x10^3/uL (0.0-0.7) Basophils # (Auto) 0.0 x10^3/uL (0.0-0.2) Prothrombin Time 15.2 SEC (11.7-14.0) Prothromb Time International Ratio 1.2 (0.8-1.1) Activated Partial Thromboplast Time 34 SEC (24-38) Sodium Level 143 mmol/L (136-145) Potassium Level 4.2 mmol/L (3.5-5.1) Chloride Level 108 mmol/L (98-107) Carbon Dioxide Level 28 mmol/L (21-32) Anion Gap 7 (6-14) Blood Urea Nitrogen 21 mg/dL (8-26) Creatinine 1.5 mg/dL (0.7-1.3) Estimated GFR (Cockcroft-Gault) 53.3 BUN/Creatinine Ratio 14 (6-20) Glucose Level 119 mg/dL (70-99) Lactic Acid Level 1.5 mmol/L (0.4-2.0) Calcium Level 9.1 mg/dL (8.5-10.1) Magnesium Level 2.0 mg/dL (1.8-2.4) Total Bilirubin 0.3 mg/dL (0.2-1.0) Aspartate Amino Transf (AST/SGOT) 16 U/L (15-37) Alanine Aminotransferase (ALT/SGPT) 14 U/L (16-63) Alkaline Phosphatase 64 U/L (46-116) Total Protein 6.9 g/dL (6.4-8.2) Albumin 3.4 g/dL (3.4-5.0) Albumin/Globulin Ratio 1.0 (1.0-1.7) SARS-CoV-2 Antigen (Rapid) Negative (NEGATIVE) Images Images CT abd reviewed shows small amount of free air and small bowel pneumatosis. No ascites Assessment/Plan Assessment/Plan Patient appears non toxic, VSS normal wbc and lactic acid. Asymptomatic CT findings concerning. Agree with observation MARY FINNEY MD Feb 07, 2021 21:08
[2021-02-07] MEDS: FAMOTIDINE 20 MG/2 ML VIAL IVP SCH (21:21)
[2021-02-07] MEDS: POTASSIUM CL 20MEQ D5-0.45NACL 1,000 ML IV SCH (21:21)
[2021-02-07] MEDS ORDERED: FURO20TA3 PO (22:35)
[2021-02-07] MEDS ORDERED: ISOS40TA10 PO (22:38)
[2021-02-07 22:52] VITALS: BP 123/59
[2021-02-08] MEDS: IV NORMAL SALINE 1000ML BAG 1,000 ML IV SCH (01:58)
[2021-02-08] MEDS: PIPERACILLIN/TAZOBACTAM 2.25 GM in IV NORMAL SALINE 50ML 50 ML IV SCH ×2 (01:58→05:08)
[2021-02-08 03:10] VITALS: BP 122/60
[2021-02-08 05:57] LABS: BASO % 1 % (0-3); EOS # 0.2 x10^3/uL (0.0-0.7); EOS % 6 % (0-3); HEMATOCRIT 35.7 % (39.0-53.0); HEMOGLOBIN 11.9 g/dL (13.0-17.5); LYMPH # 0.8 x10^3/uL (1.0-4.8); LYMPH % 25 % (24-48); MEAN CORPUSCULAR HEMOGLOBIN 31 pg (25-35); MEAN CORPUSCULAR HGB CONC 33 g/dL (31-37); MEAN CORPUSCULAR VOLUME 93 fL (79-100); MONO # 0.5 x10^3/uL (0.0-1.1); MONO % 15 % (0-9); NEUT # 1.9 x10^3/uL (1.8-7.7); NEUT % 54 % (31-73); PLATELET COUNT 162 x10^3/uL (140-400); RED BLOOD COUNT 3.82 x10^6/uL (4.30-5.70); RED CELL DISTRIBUTION WIDTH 15.1 % (11.5-14.5); WHITE BLOOD COUNT 3.4 x10^3/uL (4.0-11.0)
[2021-02-08 06:19] LABS: ALBUMIN 2.9 g/dL (3.4-5.0); ALBUMIN/GLOBULIN RATIO 0.9 (1.0-1.7); CALCIUM 8.2 mg/dL (8.5-10.1); CREATININE 1.3 mg/dL (0.7-1.3); GFR 62.9; POTASSIUM 4.4 mmol/L (3.5-5.1); TOTAL BILIRUBIN 0.4 mg/dL (0.2-1.0)
[2021-02-08 07:00] VITALS: BP 137/56
[2021-02-08] MEDS: MORPHINE SULFATE 2 MG/ML VIAL. IV PRN ×2 (08:55→22:16)
[2021-02-08] MEDS: FAMOTIDINE 20 MG/2 ML VIAL IVP SCH (08:56)
[2021-02-08] MEDS: ENOXAPARIN 40 MG/0.4 ML SYRINGE. SQ SCH (08:58)
[2021-02-08] MEDS: POTASSIUM CL 20MEQ D5-0.45NACL 1,000 ML IV SCH ×2 (09:02→18:25)
[2021-02-08] MEDS: NITROGLYCERIN 0.2MG/HR PATCH. TD SCH (09:02)
--- NOTE | 2021-02-08 09:17 | PDOC2 ---
LILIBETH LONGORIA TALLOW PUMPER 02/08/21 0917: CARDIAC CONSULT DATE OF CONSULT Date of Consult DATE: 02/08/21 TIME: 08:58 REASON FOR CONSULT Reason for Consult: CAD PAFIB REFERRING PHYSICIAN Referring Physician: Dr. House SOURCE Source: Chart review, Patient HISTORY OF PRESENT ILLNESS HISTORY OF PRESENT ILLNESS This is a 89 yo male who presented secondary to abdominal pain. Has been presented for the last month. Worse since the the weekend. Saw PCP who arranged CT of the abdomen/pelvis, which revealed n showed free air and pneumotosis of the small bowel. Patient was then recommended to go to the ED for further e valuation and treatment. Imaging here concerning for perforated SBO. Patient has a history of CAD and PAFIB, which prompted this consult. He denies any chest pain, palpitations, dizziness, diaphoresis, SOA, or nausea/vomiting. PAST MEDICAL HISTORY Past Medical History Cardiovascular: CAD, HTN, Hyperlipidemia, PAFIB Pulmonary: No pertinent hx CENTRAL NERVOUS SYSTEM: Other (No pertinent history) GI: GERD Heme/Onc: No pertinent hx Hepatobiliary: No pertinent hx Psych: No pertinent hx Musculoskeletal: Osteoarthritis Rheumatologic: No pertinent hx Infectious disease: No pertinent hx ENT: No pertinent hx Renal/: Prostate Ca., Other (bilateral renal cysts) Endocrine: No pertinent hx Dermatology: No pertinent hx PAST SURGICAL HISTORY Past Surgical History : Pacemaker, Cholecystectomy, Total hip replacement (left), Other (prostatectomy) FAMILY HISTORY Family History: Heart Disease SOCIAL HISTORY Social History Smoke: No ALCOHOL: none Drugs: None Lives: with Family CURRENT MEDICATIONS CURRENT MEDICATIONS Current Medications Medications (Trade) Dose Ordered Sig/Afsaneh Route PRN Reason Start Time Stop Time Status Last Admin Dose Admin Piperacillin Sod/ Tazobactam Sod 2.25 gm/Sodium Chloride 50 ml @ 100 mls/hr 1X ONCE IV 02/07/21 14:45 02/07/21 15:14 DC 02/07/21 15:59 Morphine Sulfate (Morphine Sulfate) 4 mg PRN Q2HR PRN IV PAIN 02/07/21 15:00 02/08/21 14:59 02/07/21 18:17 Sodium Chloride 1,000 ml @ 75 mls/hr [id number] IV 02/07/21 15:00 02/08/21 14:59 02/07/21 15:59 Piperacillin Sod/ Tazobactam Sod 2.25 gm/Sodium Chloride 50 ml @ 100 mls/hr Q6HRS IV 02/08/21 00:00 02/08/21 05:08 Potassium Chloride/Dextrose/ Sod Cl 1,000 ml @ 75 mls/hr [id number] IV 02/07/21 15:45 02/07/21 21:21 Ondansetron HCl (Zofran) 4 mg PRN Q6HRS PRN IVP NAUSEA/VOMITING 02/07/21 15:45 02/07/21 18:17 Famotidine (Pepcid Vial) 20 mg DAILY IVP 02/07/21 18:00 02/07/21 21:21 ALLERGIES ALLERGIES: Coded Allergies: Twuvciw-Uwf-Bui Reductase Inhibitor (Verified Allergy, Intermediate, Rash, 11/09/13) ROS Review of System 14 point ROS conducted with pertinent positives noted above in HPI PHYSICAL EXAM PHYSICAL EXAM General: Alert, Oriented X3, Cooperative, No acute distress HEENT: Atraumatic, Mucous membr. moist/pink Lungs: Clear to auscultation, Normal air movement Heart: Regular rate (Atrial paced), Normal S1, Normal S2, Other (3/6 systolic murmur to PATSY border) Abdomen: diffuse tenderness Extremities: No cyanosis, No edema Skin: No breakdown, No significant lesion Neuro: Normal speech, Sensation intact Psych/Mental Status: Mental status NL, Mood NL MUSCULOSKELETAL: Osteoarthritic changes both hands VITALS/I&O VITALS/I&O: Vital Signs Date Time Temp Pulse Resp B/P (MAP) Pulse Ox O2 Delivery O2 Flow Rate FiO2 02/08/21 03:10 98.2 60 16 122/60 (80) 95 Nasal Cannula 2.0 98.2 I & O 02/07/21 02/07/21 02/08/21 15:00 23:00 07:00 Intake Total 0 ml 100 ml Output Total 725 ml Balance 0 ml -625 ml LABS Lab: Laboratory Tests Test 02/07/21 12:45 02/07/21 14:35 02/08/21 05:00 White Blood Count 4.2 x10^3/uL (4.0-11.0) 3.4 x10^3/uL (4.0-11.0) L Red Blood Count 4.11 x10^6/uL (4.30-5.70) L 3.82 x10^6/uL (4.30-5.70) L Hemoglobin 12.8 g/dL (13.0-17.5) L 11.9 g/dL (13.0-17.5) L Hematocrit 38.4 % (39.0-53.0) L 35.7 % (39.0-53.0) L Mean Corpuscular Volume 93 fL (79-100) 93 fL (79-100) Mean Corpuscular Hemoglobin 31 pg (25-35) 31 pg (25-35) Mean Corpuscular Hemoglobin Concent 33 g/dL (31-37) 33 g/dL (31-37) Red Cell Distribution Width 14.6 % (11.5-14.5) H 15.1 % (11.5-14.5) H Platelet Count 181 x10^3/uL (140-400) 162 x10^3/uL (140-400) Neutrophils (%) (Auto) 55 % (31-73) 54 % (31-73) Lymphocytes (%) (Auto) 27 % (24-48) 25 % (24-48) Monocytes (%) (Auto) 12 % (0-9) H 15 % (0-9) H Eosinophils (%) (Auto) 5 % (0-3) H 6 % (0-3) H Basophils (%) (Auto) 1 % (0-3) 1 % (0-3) Neutrophils # (Auto) 2.3 x10^3/uL (1.8-7.7) 1.9 x10^3/uL (1.8-7.7) Lymphocytes # (Auto) 1.1 x10^3/uL (1.0-4.8) 0.8 x10^3/uL (1.0-4.8) L Monocytes # (Auto) 0.5 x10^3/uL (0.0-1.1) 0.5 x10^3/uL (0.0-1.1) Eosinophils # (Auto) 0.2 x10^3/uL (0.0-0.7) 0.2 x10^3/uL (0.0-0.7) Basophils # (Auto) 0.0 x10^3/uL (0.0-0.2) 0.0 x10^3/uL (0.0-0.2) Prothrombin Time 15.2 SEC (11.7-14.0) H Prothrombin Time INR 1.2 (0.8-1.1) H Activated Partial Thromboplast Time 34 SEC (24-38) Sodium Level 143 mmol/L (136-145) 145 mmol/L (136-145) Potassium Level 4.2 mmol/L (3.5-5.1) 4.4 mmol/L (3.5-5.1) Chloride Level 108 mmol/L (98-107) H 110 mmol/L (98-107) H Carbon Dioxide Level 28 mmol/L (21-32) 27 mmol/L (21-32) Anion Gap 7 (6-14) 8 (6-14) Blood Urea Nitrogen 21 mg/dL (8-26) 15 mg/dL (8-26) Creatinine 1.5 mg/dL (0.7-1.3) H 1.3 mg/dL (0.7-1.3) Estimated GFR (Cockcroft-Gault) 53.3 62.9 BUN/Creatinine Ratio 14 (6-20) 12 (6-20) Glucose Level 119 mg/dL (70-99) H 95 mg/dL (70-99) Lactic Acid Level 1.5 mmol/L (0.4-2.0) Calcium Level 9.1 mg/dL (8.5-10.1) 8.2 mg/dL (8.5-10.1) L Magnesium Level 2.0 mg/dL (1.8-2.4) Total Bilirubin 0.3 mg/dL (0.2-1.0) 0.4 mg/dL (0.2-1.0) Aspartate Amino Transferase (AST) 16 U/L (15-37) 13 U/L (15-37) L Alanine Aminotransferase (ALT) 14 U/L (16-63) L 14 U/L (16-63) L Alkaline Phosphatase 64 U/L (46-116) 61 U/L (46-116) Total Protein 6.9 g/dL (6.4-8.2) 6.0 g/dL (6.4-8.2) L Albumin 3.4 g/dL (3.4-5.0) 2.9 g/dL (3.4-5.0) L Albumin/Globulin Ratio 1.0 (1.0-1.7) 0.9 (1.0-1.7) L SARS-CoV-2 Antigen (Rapid) Negative (NEGATIVE) Laboratory Tests 02/07/21 12:45 02/08/21 05:00 Laboratory Tests 02/07/21 12:45 02/08/21 05:00 ECHOCARDIOGRAM ECHOCARDIOGRAM <Conclusion> The left ventricular systolic function is normal and the ejection fraction is within normal range. The Ejection Fraction is 60%. Transmitral Doppler flow pattern is Grade I-abnormal relaxation pattern. There is mild concentric left ventricular hypertrophy. The left atrium size is normal. The right atrium size is normal. A pacemaker is seen in the right atrium consistent with history. The aortic valve is calcified but opens well. Doppler and Color-flow revealed mild mitral regurgitation. Doppler and Color Flow revealed mild tricuspid regurgitation. There is moderate pulmonary hypertension. The PA pressure was estimated at 49 mmHg. Doppler and Color Flow revealed trace pulmonic valvular regurgitation. There is no evidence of significant pericardial effusion. DATE: 07/11/18 1518 <Conclusion> The left ventricular systolic function is normal. The Ejection Fraction is 55-60%. There is normal LV segmental wall motion. Transmitral Doppler flow pattern is Grade I-abnormal relaxation pattern. Pacer lead noted RA/RV. Mild mitral regurgitation. Mild tricuspid regurgitation. The PA pressure was estimated at 45 mmHg. There is no evidence of significant pericardial effusion. DATE: 12/27/20 [id number] 0 STRESS TEST STRESS TEST Conclusion 1. Regadenoson cardioisotope stress test did not show any evidence of ischemia or infarct. 2. Normal left ventricular systolic function with ejection fraction calculated at 78%. 3. Low risk for cardiac events. DATE: 04/14/20 1051 HEART CATH HEART CATH Findings: Coronaries: The left main is normal. The LAD is normal. The circumflex is normal. The RCA has some very mild distal plaquing in the 20-40% range. Ventriculogram: The left ventricular ejection fraction was estimated to be about 75%. There does not appear to be any significant mitral insufficiency. There was no gradient across the aortic valve. Impression: This patient does not appear to have any significant coronary artery disease therefore I would recommend medical treatment for this patient. DATE: 05/01/15 1841 ASSESSMENT/PLAN ASSESSMENT/PLAN 1. Abdominal pain; imaging concerning for perforated SBO 2. CAD: 2014 [facility] revealed distal mild disease to RCA otherwise normal coronaries. MPI 04/15 without evidence of ischemia. Echo 01/14 with preserved LV systolic function. clinically stable 3. PAFIB: maintaining SR with Sotalol. QTc 440 . on eliquis for stroke prophyla xis 4. Hypertension; controlled 5. Hyperlipidemia; allergy to stating. on zetia at home 5. H/o SSS s/p PPM ([facility]). atrial paced Recommendations Okay to hold Eliquis Will start metoprolol IV for rate control while NPO Resume Sotalol when able to take oral Secondary prevention as able Stable from CV standpoint; okay to proceed with surgery as warranted Follow GS recommendations PRASANNA HUNTER MD 02/08/211944: CARDIAC CONSULT ASSESSMENT/PLAN ASSESSMENT/PLAN Patient seen and examined. Agree with PORTFOLIO ASSISTANT's assessment and plan. Possible perforated SBO - treat per GS team, okay to hold eliquis CAD status clinically stable. Recent echo showed normal LV systolic function PAF presently SR, resume eliquis and sotalol when able to from GS standpoint Thank you for your consultation LILIBETH LONGORIA APRN Feb 08, 2021 09:17 PRASANNA HUNTER MD Feb 08, 2021 19:45
--- NOTE | 2021-02-08 09:42 | PDOC ---
JONNY MORALES TRADE MANAGER 02/08/21 0942: SURGICAL PROGRESS NOTE DATE: 02/08/21 TIME: 09:40 Subjective mild pain mid abdomen sitting up in chair some flatus no nausea or emesis Vital Signs Vital Signs Date Time Temp Pulse Resp B/P (MAP) Pulse Ox O2 Delivery O2 Flow Rate FiO2 02/08/21 08:55 95 Room Air 02/08/21 07:00 98.6 63 20 137/56 (83) 98.6 02/08/21 03:10 2.0 I&O Intake and Output 02/08/21 07:00 Intake Total 100 ml Output Total 725 ml Balance -625 ml Intake Oral 0 ml IV Total 100 ml Output Urine Total 725 ml General: Alert, Oriented X3, Cooperative Abdomen: Soft, Other (very mild ttp epigastric ) Labs Laboratory Tests Test 02/07/21 12:45 02/07/21 14:35 02/08/21 05:00 White Blood Count 4.2 x10^3/uL (4.0-11.0) 3.4 x10^3/uL (4.0-11.0) Red Blood Count 4.11 x10^6/uL (4.30-5.70) 3.82 x10^6/uL (4.30-5.70) Hemoglobin 12.8 g/dL (13.0-17.5) 11.9 g/dL (13.0-17.5) Hematocrit 38.4 % (39.0-53.0) 35.7 % (39.0-53.0) Mean Corpuscular Volume 93 fL (79-100) 93 fL (79-100) Mean Corpuscular Hemoglobin 31 pg (25-35) 31 pg (25-35) Mean Corpuscular Hemoglobin Concent 33 g/dL (31-37) 33 g/dL (31-37) Red Cell Distribution Width 14.6 % (11.5-14.5) 15.1 % (11.5-14.5) Platelet Count 181 x10^3/uL (140-400) 162 x10^3/uL (140-400) Neutrophils (%) (Auto) 55 % (31-73) 54 % (31-73) Lymphocytes (%) (Auto) 27 % (24-48) 25 % (24-48) Monocytes (%) (Auto) 12 % (0-9) 15 % (0-9) Eosinophils (%) (Auto) 5 % (0-3) 6 % (0-3) Basophils (%) (Auto) 1 % (0-3) 1 % (0-3) Neutrophils # (Auto) 2.3 x10^3/uL (1.8-7.7) 1.9 x10^3/uL (1.8-7.7) Lymphocytes # (Auto) 1.1 x10^3/uL (1.0-4.8) 0.8 x10^3/uL (1.0-4.8) Monocytes # (Auto) 0.5 x10^3/uL (0.0-1.1) 0.5 x10^3/uL (0.0-1.1) Eosinophils # (Auto) 0.2 x10^3/uL (0.0-0.7) 0.2 x10^3/uL (0.0-0.7) Basophils # (Auto) 0.0 x10^3/uL (0.0-0.2) 0.0 x10^3/uL (0.0-0.2) Prothrombin Time 15.2 SEC (11.7-14.0) Prothromb Time International Ratio 1.2 (0.8-1.1) Activated Partial Thromboplast Time 34 SEC (24-38) Sodium Level 143 mmol/L (136-145) 145 mmol/L (136-145) Potassium Level 4.2 mmol/L (3.5-5.1) 4.4 mmol/L (3.5-5.1) Chloride Level 108 mmol/L (98-107) 110 mmol/L (98-107) Carbon Dioxide Level 28 mmol/L (21-32) 27 mmol/L (21-32) Anion Gap 7 (6-14) 8 (6-14) Blood Urea Nitrogen 21 mg/dL (8-26) 15 mg/dL (8-26) Creatinine 1.5 mg/dL (0.7-1.3) 1.3 mg/dL (0.7-1.3) Estimated GFR (Cockcroft-Gault) 53.3 62.9 BUN/Creatinine Ratio 14 (6-20) 12 (6-20) Glucose Level 119 mg/dL (70-99) 95 mg/dL (70-99) Lactic Acid Level 1.5 mmol/L (0.4-2.0) Calcium Level 9.1 mg/dL (8.5-10.1) 8.2 mg/dL (8.5-10.1) Magnesium Level 2.0 mg/dL (1.8-2.4) Total Bilirubin 0.3 mg/dL (0.2-1.0) 0.4 mg/dL (0.2-1.0) Aspartate Amino Transf (AST/SGOT) 16 U/L (15-37) 13 U/L (15-37) Alanine Aminotransferase (ALT/SGPT) 14 U/L (16-63) 14 U/L (16-63) Alkaline Phosphatase 64 U/L (46-116) 61 U/L (46-116) Total Protein 6.9 g/dL (6.4-8.2) 6.0 g/dL (6.4-8.2) Albumin 3.4 g/dL (3.4-5.0) 2.9 g/dL (3.4-5.0) Albumin/Globulin Ratio 1.0 (1.0-1.7) 0.9 (1.0-1.7) SARS-CoV-2 Antigen (Rapid) Negative (NEGATIVE) Laboratory Tests Test 02/07/21 12:45 02/07/21 14:35 02/08/21 05:00 White Blood Count 4.2 x10^3/uL (4.0-11.0) 3.4 x10^3/uL (4.0-11.0) Red Blood Count 4.11 x10^6/uL (4.30-5.70) 3.82 x10^6/uL (4.30-5.70) Hemoglobin 12.8 g/dL (13.0-17.5) 11.9 g/dL (13.0-17.5) Hematocrit 38.4 % (39.0-53.0) 35.7 % (39.0-53.0) Mean Corpuscular Volume 93 fL (79-100) 93 fL (79-100) Mean Corpuscular Hemoglobin 31 pg (25-35) 31 pg (25-35) Mean Corpuscular Hemoglobin Concent 33 g/dL (31-37) 33 g/dL (31-37) Red Cell Distribution Width 14.6 % (11.5-14.5) 15.1 % (11.5-14.5) Platelet Count 181 x10^3/uL (140-400) 162 x10^3/uL (140-400) Neutrophils (%) (Auto) 55 % (31-73) 54 % (31-73) Lymphocytes (%) (Auto) 27 % (24-48) 25 % (24-48) Monocytes (%) (Auto) 12 % (0-9) 15 % (0-9) Eosinophils (%) (Auto) 5 % (0-3) 6 % (0-3) Basophils (%) (Auto) 1 % (0-3) 1 % (0-3) Neutrophils # (Auto) 2.3 x10^3/uL (1.8-7.7) 1.9 x10^3/uL (1.8-7.7) Lymphocytes # (Auto) 1.1 x10^3/uL (1.0-4.8) 0.8 x10^3/uL (1.0-4.8) Monocytes # (Auto) 0.5 x10^3/uL (0.0-1.1) 0.5 x10^3/uL (0.0-1.1) Eosinophils # (Auto) 0.2 x10^3/uL (0.0-0.7) 0.2 x10^3/uL (0.0-0.7) Basophils # (Auto) 0.0 x10^3/uL (0.0-0.2) 0.0 x10^3/uL (0.0-0.2) Prothrombin Time 15.2 SEC (11.7-14.0) Prothromb Time International Ratio 1.2 (0.8-1.1) Activated Partial Thromboplast Time 34 SEC (24-38) Sodium Level 143 mmol/L (136-145) 145 mmol/L (136-145) Potassium Level 4.2 mmol/L (3.5-5.1) 4.4 mmol/L (3.5-5.1) Chloride Level 108 mmol/L (98-107) 110 mmol/L (98-107) Carbon Dioxide Level 28 mmol/L (21-32) 27 mmol/L (21-32) Anion Gap 7 (6-14) 8 (6-14) Blood Urea Nitrogen 21 mg/dL (8-26) 15 mg/dL (8-26) Creatinine 1.5 mg/dL (0.7-1.3) 1.3 mg/dL (0.7-1.3) Estimated GFR (Cockcroft-Gault) 53.3 62.9 BUN/Creatinine Ratio 14 (6-20) 12 (6-20) Glucose Level 119 mg/dL (70-99) 95 mg/dL (70-99) Lactic Acid Level 1.5 mmol/L (0.4-2.0) Calcium Level 9.1 mg/dL (8.5-10.1) 8.2 mg/dL (8.5-10.1) Magnesium Level 2.0 mg/dL (1.8-2.4) Total Bilirubin 0.3 mg/dL (0.2-1.0) 0.4 mg/dL (0.2-1.0) Aspartate Amino Transf (AST/SGOT) 16 U/L (15-37) 13 U/L (15-37) Alanine Aminotransferase (ALT/SGPT) 14 U/L (16-63) 14 U/L (16-63) Alkaline Phosphatase 64 U/L (46-116) 61 U/L (46-116) Total Protein 6.9 g/dL (6.4-8.2) 6.0 g/dL (6.4-8.2) Albumin 3.4 g/dL (3.4-5.0) 2.9 g/dL (3.4-5.0) Albumin/Globulin Ratio 1.0 (1.0-1.7) 0.9 (1.0-1.7) SARS-CoV-2 Antigen (Rapid) Negative (NEGATIVE) Problem List Problems Medical Problems: (1) Perforated abdominal viscus Status: Acute (2) Perforated bowel Status: Acute (3) Pneumatosis intestinalis Status: Acute (4) Small bowel obstruction Status: Acute Assessment/Plan labs, vitals stable xr pending Justicifation of Admission Dx: Justifications for Admission: Justification of Admission Dx: Yes Comments: perforated small bowel MARY FINNEY MD 02/08/21 0950: SURGICAL PROGRESS NOTE Assessment/Plan Patient's exam quite benign no acute changes from yesterday vital signs stable. We will continue to treat conservatively, no surgical plans at this time JONNY MORALES TRADE MANAGER Feb 08, 2021 09:42 MARY FINNEY MD Feb 08, 2021 09:50
[2021-02-08] MEDS ORDERED: METOPROLOL IV PUSH 5 MG/5 ML VIAL. IVP SCH (10:00)
--- NOTE | 2021-02-08 10:14 | PDOC ---
PROGRESS NOTES Date of Service DATE: 02/08/21 TIME: 10:03 Subjective Subjective has mild para umbilical abdominal pain this morning treated with iv morphine. no nausea or vomiting. no BM today but had one yesterday. afebrile. lab reviewed. AAA report pending. 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 Objective Objective Vital Signs Date Time Temp Pulse Resp B/P (MAP) Pulse Ox O2 Delivery O2 Flow Rate FiO2 02/08/21 08:55 95 Room Air 02/08/21 07:00 98.6 63 20 137/56 (83) 98.6 02/08/21 03:10 2.0 Intake and Output 02/08/21 07:00 Intake Total 100 ml Output Total 725 ml Balance -625 ml Intake Oral 0 ml IV Total 100 ml Output Urine Total 725 ml Physical Exam Abdomen: Soft, Other (obese. bowel sounds heard. not tender) Heart: Regular rate, Normal S1, Normal S2 Extremities: No edema General: Alert HEENT: Atraumatic Lungs: Clear to auscultation Neuro: Normal speech Psych/Mental Status: Mental status NL Skin: No rashes Assessment Assessment Problems1. Pneumatosis intestinalis. 2. Suspected small bowel perforation. 3. Coronary artery disease. 4. Hypertension. 5. Hyperlipidemia. 6. Paroxysmal atrial fibrillation. 7. Morbid obesity. 8. Ventral abdominal hernia. 9. Acute kidney injury. improved. Severe protein calorie malnutrition Medical Problems: (1) Perforated abdominal viscus Status: Acute (2) Perforated bowel Status: Acute (3) Pneumatosis intestinalis Status: Acute (4) Small bowel obstruction Status: Acute Plan Plan of Care npo iv morphine prn nitropatch iv metoprolol per cardiology but will change to 2.5 mg iv every 6 hours lovenox for dvt prophylaxis iv pepcid for GI prophylaxis iv hydralazine prn for high bp AAA report pending continue iv zosyn lab tomorrow telemetry Comment Review of Relevant I have reviewed the following items martín (where applicable) has been applied. Labs Laboratory Tests Test 02/07/21 12:45 02/07/21 14:35 02/08/21 05:00 White Blood Count 4.2 x10^3/uL (4.0-11.0) 3.4 x10^3/uL (4.0-11.0) Red Blood Count 4.11 x10^6/uL (4.30-5.70) 3.82 x10^6/uL (4.30-5.70) Hemoglobin 12.8 g/dL (13.0-17.5) 11.9 g/dL (13.0-17.5) Hematocrit 38.4 % (39.0-53.0) 35.7 % (39.0-53.0) Mean Corpuscular Volume 93 fL (79-100) 93 fL (79-100) Mean Corpuscular Hemoglobin 31 pg (25-35) 31 pg (25-35) Mean Corpuscular Hemoglobin Concent 33 g/dL (31-37) 33 g/dL (31-37) Red Cell Distribution Width 14.6 % (11.5-14.5) 15.1 % (11.5-14.5) Platelet Count 181 x10^3/uL (140-400) 162 x10^3/uL (140-400) Neutrophils (%) (Auto) 55 % (31-73) 54 % (31-73) Lymphocytes (%) (Auto) 27 % (24-48) 25 % (24-48) Monocytes (%) (Auto) 12 % (0-9) 15 % (0-9) Eosinophils (%) (Auto) 5 % (0-3) 6 % (0-3) Basophils (%) (Auto) 1 % (0-3) 1 % (0-3) Neutrophils # (Auto) 2.3 x10^3/uL (1.8-7.7) 1.9 x10^3/uL (1.8-7.7) Lymphocytes # (Auto) 1.1 x10^3/uL (1.0-4.8) 0.8 x10^3/uL (1.0-4.8) Monocytes # (Auto) 0.5 x10^3/uL (0.0-1.1) 0.5 x10^3/uL (0.0-1.1) Eosinophils # (Auto) 0.2 x10^3/uL (0.0-0.7) 0.2 x10^3/uL (0.0-0.7) Basophils # (Auto) 0.0 x10^3/uL (0.0-0.2) 0.0 x10^3/uL (0.0-0.2) Prothrombin Time 15.2 SEC (11.7-14.0) Prothromb Time International Ratio 1.2 (0.8-1.1) Activated Partial Thromboplast Time 34 SEC (24-38) Sodium Level 143 mmol/L (136-145) 145 mmol/L (136-145) Potassium Level 4.2 mmol/L (3.5-5.1) 4.4 mmol/L (3.5-5.1) Chloride Level 108 mmol/L (98-107) 110 mmol/L (98-107) Carbon Dioxide Level 28 mmol/L (21-32) 27 mmol/L (21-32) Anion Gap 7 (6-14) 8 (6-14) Blood Urea Nitrogen 21 mg/dL (8-26) 15 mg/dL (8-26) Creatinine 1.5 mg/dL (0.7-1.3) 1.3 mg/dL (0.7-1.3) Estimated GFR (Cockcroft-Gault) 53.3 62.9 BUN/Creatinine Ratio 14 (6-20) 12 (6-20) Glucose Level 119 mg/dL (70-99) 95 mg/dL (70-99) Lactic Acid Level 1.5 mmol/L (0.4-2.0) Calcium Level 9.1 mg/dL (8.5-10.1) 8.2 mg/dL (8.5-10.1) Magnesium Level 2.0 mg/dL (1.8-2.4) Total Bilirubin 0.3 mg/dL (0.2-1.0) 0.4 mg/dL (0.2-1.0) Aspartate Amino Transf (AST/SGOT) 16 U/L (15-37) 13 U/L (15-37) Alanine Aminotransferase (ALT/SGPT) 14 U/L (16-63) 14 U/L (16-63) Alkaline Phosphatase 64 U/L (46-116) 61 U/L (46-116) Total Protein 6.9 g/dL (6.4-8.2) 6.0 g/dL (6.4-8.2) Albumin 3.4 g/dL (3.4-5.0) 2.9 g/dL (3.4-5.0) Albumin/Globulin Ratio 1.0 (1.0-1.7) 0.9 (1.0-1.7) SARS-CoV-2 Antigen (Rapid) Negative (NEGATIVE) Laboratory Tests Test 02/07/21 12:45 02/07/21 14:35 02/08/21 05:00 White Blood Count 4.2 x10^3/uL (4.0-11.0) 3.4 x10^3/uL (4.0-11.0) Red Blood Count 4.11 x10^6/uL (4.30-5.70) 3.82 x10^6/uL (4.30-5.70) Hemoglobin 12.8 g/dL (13.0-17.5) 11.9 g/dL (13.0-17.5) Hematocrit 38.4 % (39.0-53.0) 35.7 % (39.0-53.0) Mean Corpuscular Volume 93 fL (79-100) 93 fL (79-100) Mean Corpuscular Hemoglobin 31 pg (25-35) 31 pg (25-35) Mean Corpuscular Hemoglobin Concent 33 g/dL (31-37) 33 g/dL (31-37) Red Cell Distribution Width 14.6 % (11.5-14.5) 15.1 % (11.5-14.5) Platelet Count 181 x10^3/uL (140-400) 162 x10^3/uL (140-400) Neutrophils (%) (Auto) 55 % (31-73) 54 % (31-73) Lymphocytes (%) (Auto) 27 % (24-48) 25 % (24-48) Monocytes (%) (Auto) 12 % (0-9) 15 % (0-9) Eosinophils (%) (Auto) 5 % (0-3) 6 % (0-3) Basophils (%) (Auto) 1 % (0-3) 1 % (0-3) Neutrophils # (Auto) 2.3 x10^3/uL (1.8-7.7) 1.9 x10^3/uL (1.8-7.7) Lymphocytes # (Auto) 1.1 x10^3/uL (1.0-4.8) 0.8 x10^3/uL (1.0-4.8) Monocytes # (Auto) 0.5 x10^3/uL (0.0-1.1) 0.5 x10^3/uL (0.0-1.1) Eosinophils # (Auto) 0.2 x10^3/uL (0.0-0.7) 0.2 x10^3/uL (0.0-0.7) Basophils # (Auto) 0.0 x10^3/uL (0.0-0.2) 0.0 x10^3/uL (0.0-0.2) Prothrombin Time 15.2 SEC (11.7-14.0) Prothromb Time International Ratio 1.2 (0.8-1.1) Activated Partial Thromboplast Time 34 SEC (24-38) Sodium Level 143 mmol/L (136-145) 145 mmol/L (136-145) Potassium Level 4.2 mmol/L (3.5-5.1) 4.4 mmol/L (3.5-5.1) Chloride Level 108 mmol/L (98-107) 110 mmol/L (98-107) Carbon Dioxide Level 28 mmol/L (21-32) 27 mmol/L (21-32) Anion Gap 7 (6-14) 8 (6-14) Blood Urea Nitrogen 21 mg/dL (8-26) 15 mg/dL (8-26) Creatinine 1.5 mg/dL (0.7-1.3) 1.3 mg/dL (0.7-1.3) Estimated GFR (Cockcroft-Gault) 53.3 62.9 BUN/Creatinine Ratio 14 (6-20) 12 (6-20) Glucose Level 119 mg/dL (70-99) 95 mg/dL (70-99) Lactic Acid Level 1.5 mmol/L (0.4-2.0) Calcium Level 9.1 mg/dL (8.5-10.1) 8.2 mg/dL (8.5-10.1) Magnesium Level 2.0 mg/dL (1.8-2.4) Total Bilirubin 0.3 mg/dL (0.2-1.0) 0.4 mg/dL (0.2-1.0) Aspartate Amino Transf (AST/SGOT) 16 U/L (15-37) 13 U/L (15-37) Alanine Aminotransferase (ALT/SGPT) 14 U/L (16-63) 14 U/L (16-63) Alkaline Phosphatase 64 U/L (46-116) 61 U/L (46-116) Total Protein 6.9 g/dL (6.4-8.2) 6.0 g/dL (6.4-8.2) Albumin 3.4 g/dL (3.4-5.0) 2.9 g/dL (3.4-5.0) Albumin/Globulin Ratio 1.0 (1.0-1.7) 0.9 (1.0-1.7) SARS-CoV-2 Antigen (Rapid) Negative (NEGATIVE) Medications Current Medications Iohexol (Omnipaque 300 Mg/ml) 60 ml 1X ONCE IV ; Start 02/07/21 at 13:45; Stop 02/07/21 at 13:51; Status DC Info (CONTRAST GIVEN -- Rx MONITORING) 1 each PRN DAILY PRN MC SEE COMMENTS; Start 02/07/21 at 14:00; Stop 02/09/21 at 13:59 Piperacillin Sod/ Tazobactam Sod (Zosyn Per Pharmacy) 1 each PRN DAILY PRN MC SEE COMMENTS; Start 02/07/21 at 14:30 Piperacillin Sod/ Tazobactam Sod 2.25 gm/Sodium Chloride 50 ml @ 100 mls/hr 1X ONCE IV Last administered on 02/07/21at 15:59; Start 02/07/21 at 14:45; Stop 02/07/21 at 15:14; Status DC Ondansetron HCl (Zofran) 4 mg PRN Q8HRS PRN IV NAUSEA/VOMITING; Start 02/07/21 at 15:00; Stop 02/07/21 at 15:54; Status DC Morphine Sulfate (Morphine Sulfate) 4 mg PRN Q2HR PRN IV PAIN Last administered on 02/07/21at 18:17; Start 02/07/21 at 15:00; Stop 02/08/21 at 14:59 Sodium Chloride 1,000 ml @ 75 mls/hr [id number] IV Last administered on 02/07/21at 15:59; Start 02/07/21 at 15:00; Stop 02/08/21 at 14:59 Piperacillin Sod/ Tazobactam Sod 2.25 gm/Sodium Chloride 50 ml @ 100 mls/hr Q6HRS IV Last administered on 02/08/21at 05:08; Start 02/08/21 at 00:00 Potassium Chloride/Dextrose/ Sod Cl 1,000 ml @ 75 mls/hr [id number] IV Last administered on 02/08/21at 09:02; Start 02/07/21 at 15:45 Ondansetron HCl (Zofran) 4 mg PRN Q6HRS PRN IVP NAUSEA/VOMITING Last administered on 02/07/21at 18:17; Start 02/07/21 at 15:45 Famotidine (Pepcid Vial) 20 mg DAILY IVP Last administered on 02/08/21at 08:56; Start 02/07/21 at 18:00 Morphine Sulfate (Morphine Sulfate) 2 mg PRN Q4HRS PRN IV PAIN Last administered on 02/08/21at 08:55; Start 02/07/21 at 15:45 Acetaminophen (Tylenol Supp) 650 mg PRN Q6HRS PRN MI MILD PAIN / TEMP > 100.3'F; Start 02/07/21 at 15:45 Hydralazine HCl (Apresoline Inj) 10 mg PRN Q4HRS PRN IVP ELEVATED BP, SEE COMMENTS; Start 02/07/21 at 15:45 Nitroglycerin (Nitro-Dur) 1 patch DAILY TD Last administered on 02/08/21at 09:02; Start 02/08/21 at 09:00 Enoxaparin Sodium (Lovenox 40mg Syringe) 40 mg Q24H SQ Last administered on 02/08/21at 08:58; Start 02/08/21 at 09:00 Metoprolol Tartrate (Lopressor Vial) 5 mg Q6HRS IVP ; Start 02/08/21 at 10:00 Active Scripts Active Betapace (Sotalol Hcl) 80 Mg Tablet 80 Mg PO BID Ezetimibe 10 Mg Tablet 10 Mg PO DAILY Reported Isosorbide Dinitrate 40 Mg Tablet.er 20 Mg PO TID Furosemide 20 Mg Tablet 20 Mg PO DAILY Docusate Sodium 100 Mg Capsule 1 Cap PO DAILY PRN Gabapentin 600 Mg Tablet 600 Mg PO TID Hydralazine Hcl 25 Mg Tablet 1 Tab PO TID Eliquis (Apixaban) 5 Mg Tablet 5 Mg PO BID Amlodipine Besylate 10 Mg Tablet 10 Mg PO DAILY Aspir 81 (Aspirin) 81 Mg Tablet. 1 Tab PO DAILY Potassium Chloride (Potassium Chloride) 20 Meq Tablet.er 20 Meq PO DAILY Multi Vitamin Daily (Multivitamin) 1 Each Tablet 1 Each PO DAILY Losartan Potassium 100 Mg Tablet 100 Mg PO DAILY Vitals/I & O Vital Sign - Last 24 Hours 02/07/21 02/07/21 02/07/21 02/07/21 12:33 18:46 19:44 20:00 Temp 98.2 97.9 98.2 97.9 Pulse 66 59 Resp 18 16 16 B/P (MAP) 171/85 (113) 159/78 (105) Pulse Ox 96 97 92 O2 Delivery Room Air Room Air Room Air Nasal Cannula O2 Flow Rate 2.0 02/07/21 02/08/21 02/08/21 02/08/21 22:52 03:10 07:00 08:55 Temp 97.9 98.2 98.6 97.9 98.2 98.6 Pulse 60 60 63 Resp 16 16 20 B/P (MAP) 123/59 (80) 122/60 (80) 137/56 (83) Pulse Ox 95 95 93 95 O2 Delivery Nasal Cannula Nasal Cannula Room Air Room Air O2 Flow Rate 2.0 2.0 Intake and Output 02/07/21 02/07/21 02/08/21 15:00 23:00 07:00 Intake Total 0 ml 100 ml Output Total 725 ml Balance 0 ml -625 ml Justifications for Admission Other Justification LAN DOWLING MD Feb 08, 2021 10:14
--- NOTE | 2021-02-08 10:49 | RAD ---
EXAM: XR ABDOMEN COMP ACUTE 02/08/2021 8:02 AM CLINICAL INDICATION: Follow-up pneumatosis COMPARISON: CT abdomen pelvis 02/07/2021 TECHNIQUE: AP supine and upright view of the abdomen and upright view the chest FINDINGS: There are dilated loops of small bowel. There is some possible free air versus pneumatosis seen in a loop of small bowel in the left upper quadrant on the images, although this is better seen on prior C T. No free air seen under the diaphragm. There is contrast in the colon. Surgical clips in the pelvis . There are bilateral hip prostheses. Lumbar degenerative disc disease. Heart is normal in size. Lung s are clear. No pleural effusion or pneumothorax. Pacemaker noted. IMPRESSION: Mildly dilated small bowel. There is a small amount of pneumatosis or free air seen hong g a loop of small bowel in the left upper quadrant on one view. This is better demonstrated on CT fro m one day ago. Electronically signed by: Luz Wlilson MD (02/08/2021 10:47 AM) [id number]
[2021-02-08 11:00] VITALS: BP 149/74
--- NOTE | 2021-02-08 11:04 | PDOC ---
Date of Service: DATE: 02/08/21 TIME: 11:00 Subjective: Subjective: Had some mid/upper pain around 7:00 this morning, got morphine. No n/v, passed a little gas. Has questions about what surgery would involve. Objective: Objective: D/w surgery. Vital Signs: Vital Signs Date Time Temp Pulse Resp B/P (MAP) Pulse Ox O2 Delivery O2 Flow Rate FiO2 02/08/21 10:15 95 Room Air 02/08/21 07:00 98.6 63 20 137/56 (83) 98.6 02/08/21 03:10 2.0 Labs: Laboratory Tests Test 02/07/21 12:45 02/07/21 14:35 02/08/21 05:00 White Blood Count 4.2 x10^3/uL 3.4 x10^3/uL Red Blood Count 4.11 x10^6/uL 3.82 x10^6/uL Hemoglobin 12.8 g/dL 11.9 g/dL Hematocrit 38.4 % 35.7 % Mean Corpuscular Volume 93 fL 93 fL Mean Corpuscular Hemoglobin 31 pg 31 pg Mean Corpuscular Hemoglobin Concent 33 g/dL 33 g/dL Red Cell Distribution Width 14.6 % 15.1 % Platelet Count 181 x10^3/uL 162 x10^3/uL Neutrophils (%) (Auto) 55 % 54 % Lymphocytes (%) (Auto) 27 % 25 % Monocytes (%) (Auto) 12 % 15 % Eosinophils (%) (Auto) 5 % 6 % Basophils (%) (Auto) 1 % 1 % Neutrophils # (Auto) 2.3 x10^3/uL 1.9 x10^3/uL Lymphocytes # (Auto) 1.1 x10^3/uL 0.8 x10^3/uL Monocytes # (Auto) 0.5 x10^3/uL 0.5 x10^3/uL Eosinophils # (Auto) 0.2 x10^3/uL 0.2 x10^3/uL Basophils # (Auto) 0.0 x10^3/uL 0.0 x10^3/uL Prothrombin Time 15.2 SEC Prothromb Time International Ratio 1.2 Activated Partial Thromboplast Time 34 SEC Sodium Level 143 mmol/L 145 mmol/L Potassium Level 4.2 mmol/L 4.4 mmol/L Chloride Level 108 mmol/L 110 mmol/L Carbon Dioxide Level 28 mmol/L 27 mmol/L Anion Gap 7 8 Blood Urea Nitrogen 21 mg/dL 15 mg/dL Creatinine 1.5 mg/dL 1.3 mg/dL Estimated GFR (Cockcroft-Gault) 53.3 62.9 BUN/Creatinine Ratio 14 12 Glucose Level 119 mg/dL 95 mg/dL Lactic Acid Level 1.5 mmol/L Calcium Level 9.1 mg/dL 8.2 mg/dL Magnesium Level 2.0 mg/dL Total Bilirubin 0.3 mg/dL 0.4 mg/dL Aspartate Amino Transf (AST/SGOT) 16 U/L 13 U/L Alanine Aminotransferase (ALT/SGPT) 14 U/L 14 U/L Alkaline Phosphatase 64 U/L 61 U/L Total Protein 6.9 g/dL 6.0 g/dL Albumin 3.4 g/dL 2.9 g/dL Albumin/Globulin Ratio 1.0 0.9 SARS-CoV-2 Antigen (Rapid) Negative Imaging: [facility] 02/08 IMPRESSION: Mildly dilated small bowel. There is a small amount of pneumatosis or free air seen along a loop of small bowel in the left upper quadrant on one view. This is better demonstrated on CT from one day ago. PE: GEN: NAD - up in chair - was talking on the phone LUNGS: CTAB HEART: RRR ABD: round/large, soft, BS+, non-tender when I saw NEURO/PSYCH: A & O 3 A/P: Intermittent mid abdominal discomfort Concern for perforated SBO H/o colon cancer -- Continue per surgery, will follow. Justicifation of Admission Dx: Justifications for Admission: Justification of Admission Dx: Yes TARIK PORTER Feb 08, 2021 11:04
[2021-02-08] MEDS: METOPROLOL IV PUSH 5 MG/5 ML VIAL. IVP SCH ×3 (13:27→23:21)
[2021-02-08] MEDS: PIPERACILLIN/TAZOBACTAM 3.375 GM in IV NORMAL SALINE 50ML 50 ML IV SCH ×3 (13:28→23:21)
--- NOTE | 2021-02-08 13:29 | NUR ---
SS following for discharge planning. SS reviewed pt chart and discussed with pt RN. Pt is from home and is currently on room air. COVID19 negative. Pt on IV Zosyn. GI, Cardiology, and Surgery following. No surgical plans at this time. SS will continue to follow for discharge planning.
[2021-02-08 15:00] VITALS: BP 116/77
[2021-02-08 19:59] VITALS: BP 128/75
--- NOTE | 2021-02-08 21:17 | PDOC ---
Infectious Disease Note Vital Signs: Vital Signs Vital Signs Date Time Temp Pulse Resp B/P (MAP) Pulse Ox O2 Delivery O2 Flow Rate FiO2 02/08/21 19:59 97.5 83 18 128/75 (92) 94 Room Air 97.5 02/08/21 03:10 2.0 Medications: Inpatient Meds: Medications reviewed. Labs: Lab Laboratory Tests Test 02/08/21 05:00 02/08/21 14:35 White Blood Count 3.4 x10^3/uL (4.0-11.0) Red Blood Count 3.82 x10^6/uL (4.30-5.70) Hemoglobin 11.9 g/dL (13.0-17.5) Hematocrit 35.7 % (39.0-53.0) Mean Corpuscular Volume 93 fL (79-100) Mean Corpuscular Hemoglobin 31 pg (25-35) Mean Corpuscular Hemoglobin Concent 33 g/dL (31-37) Red Cell Distribution Width 15.1 % (11.5-14.5) Platelet Count 162 x10^3/uL (140-400) Neutrophils (%) (Auto) 54 % (31-73) Lymphocytes (%) (Auto) 25 % (24-48) Monocytes (%) (Auto) 15 % (0-9) Eosinophils (%) (Auto) 6 % (0-3) Basophils (%) (Auto) 1 % (0-3) Neutrophils # (Auto) 1.9 x10^3/uL (1.8-7.7) Lymphocytes # (Auto) 0.8 x10^3/uL (1.0-4.8) Monocytes # (Auto) 0.5 x10^3/uL (0.0-1.1) Eosinophils # (Auto) 0.2 x10^3/uL (0.0-0.7) Basophils # (Auto) 0.0 x10^3/uL (0.0-0.2) Sodium Level 145 mmol/L (136-145) Potassium Level 4.4 mmol/L (3.5-5.1) Chloride Level 110 mmol/L (98-107) Carbon Dioxide Level 27 mmol/L (21-32) Anion Gap 8 (6-14) Blood Urea Nitrogen 15 mg/dL (8-26) Creatinine 1.3 mg/dL (0.7-1.3) Estimated GFR (Cockcroft-Gault) 62.9 BUN/Creatinine Ratio 12 (6-20) Glucose Level 95 mg/dL (70-99) Calcium Level 8.2 mg/dL (8.5-10.1) Total Bilirubin 0.4 mg/dL (0.2-1.0) Aspartate Amino Transf (AST/SGOT) 13 U/L (15-37) Alanine Aminotransferase (ALT/SGPT) 14 U/L (16-63) Alkaline Phosphatase 61 U/L (46-116) Total Protein 6.0 g/dL (6.4-8.2) Albumin 2.9 g/dL (3.4-5.0) Albumin/Globulin Ratio 0.9 (1.0-1.7) SARS-CoV-2 RNA (FELY) Negative (Negative) Objective: Assessment: Late entry Pt seen and examined around 11 20 am today ID consult dictated Plan: Plan of Care Thank you D/W YING ENGLE MD Feb 08, 2021 21:17
--- NOTE | 2021-02-08 22:08 | CONS ---
DATE OF CONSULTATION: 02/08/2021 REFERRING PHYSICIAN: Brent House. REASON FOR CONSULTATION: Antibiotic management. HISTORY OF PRESENT ILLNESS: An 89-year-old male who presented to the ER due to abdominal pain on and off for 1 month. The patient got worse last Friday. He denies any history of injury. He was seen by his primary care physician who ordered a CT of the abdomen and pelvis without contrast. CT scan showed pneumatosis intestinalis with internal normal area identified within multiple small bowel loops. The patient was advised to come to the ER for further evaluation and treatment. He denied any fevers, chills, nausea, vomiting, diarrhea, or abdominal pain. Denied any cough, shortness of breath, or symptoms. White count was normal, hemoglobin of 12.8. Creatinine of 1.5. Lactate of 1.5, albumin of 2.9. INR of 1.2. Abdominal and pelvic CT were done, which showed mildly dilated small bowel with pneumatosis and pneumoperitoneum suspicious for perforated small bowel obstruction. Site of perforation and obstruction likely in the left mid abdomen with a small clumping of small bowel and greatest amount of free air. The patient was started on Zosyn. General Surgery is following the patient. Currently, he is under observation and bowel rest. ID consultation has been requested for antibiotic management. Today, the patient complains of some abdominal discomfort in the mid upper abdominal area, passed a little gas. No nausea, vomiting, or chest pain. PAST MEDICAL HISTORY: Colon cancer, prostate cancer, AFib, coronary artery disease, hypertension, hyperlipidemia, and CKD. PAST SURGICAL HISTORY: Pacemaker, cholecystectomy, colon cancer, and prostatectomy. FAMILY HISTORY: As per HPI. SOCIAL HISTORY: Quit smoking, no alcohol, no drugs. REVIEW OF SYSTEMS: Negative except for above in HPI. CURRENT MEDICATIONS: Zosyn. Other medications reviewed in medication list. PHYSICAL EXAMINATION: VITAL SIGNS: Temperature 98.6, pulse 63, respiratory rate 20, blood pressure 137/56, oxygen saturation 95% on room air. GENERAL: Alert, oriented x 3 male, sitting in chair, in no acute distress. HEENT: Normocephalic, atraumatic, anicteric. No thrush. NECK: Supple, no JVD. LUNGS: Clear bilaterally. No wheezing. HEART: S1, S2. No gallops or murmurs. ABDOMEN: Distended. Bowel sounds present. Mildly tender in the left upper quadrant. No rebound, no guarding. EXTREMITIES: No edema, no cyanosis. DERMATOLOGIC: Warm, dry. No generalized rash. NEUROLOGIC: Alert and oriented x 3, grossly nonfocal. PSYCHIATRIC: Cooperative, appropriate mood and affect. DERMATOLOGIC: Warm and dry. No generalized rash. Chest wall, pacemaker site looks clean. LABORATORY DATA: WBC 3.4, hemoglobin 11.9, hematocrit 35.7, platelets 162. Sodium 145, potassium 4.4, chloride 110, bicarbonate 27, BUN 15, creatinine 1.3, glucose 95. LFTs normal except for albumin at 2.9. INR 1.2. SARS-COVID negative. DIAGNOSTICS: Abdominal CT, mild dilated small bowel with pneumatosis and pneumoperitoneum suspicious for perforated small bowel obstruction. Site of perforation or obstruction likely in the left mid abdomen with a small clumping of small bowel and greatest amount of free air. Chest x-ray, no acute cardiopulmonary abnormality. Abdominal CT, shows mildly dilated small bowel. There is small amount of pneumatosis and free air seen along the loop of small bowel in the left upper quadrant on 1 view. This is better demonstrated on CT from 1 day ago. IMPRESSION: 1. Abdominal pain. 2. Suspected small bowel obstruction. 3. Pneumatosis intestinalis from above. 4. Coronary artery disease. 5. Hypertension/hyperlipidemia. 6. Paroxysmal atrial fibrillation. 7. Status post permanent pacemaker. 8. Acute kidney injury, improved. 9. Leukopenia. 10. History of colon cancer, status post resection. 11. History of prostate cancer. 12. Status post cholecystectomy. RECOMMENDATIONS: 1. Continue Zosyn. 2. Follow up labs and cultures. 3. Continue supportive care. 4. GI team and General Surgery following. Discussed with nursing staff. Thank you for allowing me to participate in this patient's care. If you have any questions, do not hesitate to contact me. YING PRO MD DR: [email or web address]/[email or web address] JOB#: [id number] / [id number] DESTINI
[2021-02-08 23:08] VITALS: BP 144/57
[2021-02-09 02:56] VITALS: BP 131/68
[2021-02-09] MEDS: PIPERACILLIN/TAZOBACTAM 3.375 GM in IV NORMAL SALINE 50ML 50 ML IV SCH ×4 (05:14→23:48)
[2021-02-09] MEDS: METOPROLOL IV PUSH 5 MG/5 ML VIAL. IVP SCH (05:14)
[2021-02-09 07:00] VITALS: BP 147/75
[2021-02-09 07:54] LABS: BASO % 1 % (0-3); EOS # 0.2 x10^3/uL (0.0-0.7); EOS % 5 % (0-3); HEMATOCRIT 35.4 % (39.0-53.0); HEMOGLOBIN 11.7 g/dL (13.0-17.5); LYMPH # 0.7 x10^3/uL (1.0-4.8); LYMPH % 23 % (24-48); MEAN CORPUSCULAR HEMOGLOBIN 31 pg (25-35); MEAN CORPUSCULAR HGB CONC 33 g/dL (31-37); MEAN CORPUSCULAR VOLUME 93 fL (79-100); MONO # 0.5 x10^3/uL (0.0-1.1); MONO % 15 % (0-9); NEUT # 1.8 x10^3/uL (1.8-7.7); NEUT % 57 % (31-73); PLATELET COUNT 163 x10^3/uL (140-400); RED BLOOD COUNT 3.81 x10^6/uL (4.30-5.70); RED CELL DISTRIBUTION WIDTH 14.6 % (11.5-14.5); WHITE BLOOD COUNT 3.1 x10^3/uL (4.0-11.0)
[2021-02-09] MEDS: FAMOTIDINE 20 MG/2 ML VIAL IVP SCH (08:03)
[2021-02-09] MEDS: ENOXAPARIN 40 MG/0.4 ML SYRINGE. SQ SCH (08:03)
[2021-02-09] MEDS: NITROGLYCERIN 0.2MG/HR PATCH. TD SCH (08:04)
[2021-02-09 08:23] LABS: CALCIUM 8.3 mg/dL (8.5-10.1); CREATININE 1.3 mg/dL (0.7-1.3); GFR 62.9; POTASSIUM 4.2 mmol/L (3.5-5.1)
--- NOTE | 2021-02-09 09:27 | RAD ---
XR ABDOMEN COMP ACUTE History: Reason: f/u SBO/perf / Spl. Instructions: / History: Technique: Upright and supine views of the abdomen. Comparison: February 08, 2021 Findings: No consolidation or pleural effusion. No pneumothorax. Stable left-sided pacemaker. Unchanged heart s ize. Increased mildly dilated loops of small bowel throughout the abdomen. Small bowel pneumatosis, stable to increased compared to prior. Air and stool throughout the colon. No increased layering pneumoperi toneum on upright views. Bilateral hip arthroplasties. Multilevel lumbar spondylosis. Impression: 1. Increased dilated small bowel loops compared to prior. 2. Small bowel pneumatosis, stable to increased compared to prior. No increasing pneumoperitoneum. Electronically signed by: Giovani Chavis DO (02/09/2021 9:25 AM) [id number]
[2021-02-09] MEDS ORDERED: fentaNYL PF VIAL 100 MCG/2 ML VIAL IVP PRN (09:30)
[2021-02-09] MEDS ORDERED: NITROGLYCERIN SUBLINGUAL 0.4 MG BOTTLE OF 25. SL PRN (09:30)
[2021-02-09] MEDS ORDERED: ACETAMINOPHEN 325 MG TABLET. PO PRN (09:30)
--- NOTE | 2021-02-09 09:38 | PDOC ---
SURGICAL PROGRESS NOTE DATE: 02/09/21 TIME: 09:35 Subjective Patient doing well, no complaints. Passing flatus, no BM. Denies N/V. Minimal to no abd pain Vital Signs Vital Signs Date Time Temp Pulse Resp B/P (MAP) Pulse Ox O2 Delivery O2 Flow Rate FiO2 02/09/21 08:00 Room Air 02/09/21 07:00 98.4 64 18 147/75 (99) 94 98.4 02/08/21 22:46 2.0 I&O Intake and Output 02/09/21 07:00 Intake Total 100 ml Output Total 1115 ml Balance -1015 ml Intake Oral 0 ml IV Total 100 ml Output Urine Total 1115 ml PATIENT HAS A BLACKWELL: No General: Alert, Oriented X3, Cooperative, No acute distress Abdomen: Normal bowel sounds, Soft, No tenderness Labs Laboratory Tests Test 02/07/21 12:45 02/07/21 14:35 02/08/21 05:00 02/08/21 14:35 White Blood Count 4.2 x10^3/uL (4.0-11.0) 3.4 x10^3/uL (4.0-11.0) Red Blood Count 4.11 x10^6/uL (4.30-5.70) 3.82 x10^6/uL (4.30-5.70) Hemoglobin 12.8 g/dL (13.0-17.5) 11.9 g/dL (13.0-17.5) Hematocrit 38.4 % (39.0-53.0) 35.7 % (39.0-53.0) Mean Corpuscular Volume 93 fL (79-100) 93 fL (79-100) Mean Corpuscular Hemoglobin 31 pg (25-35) 31 pg (25-35) Mean Corpuscular Hemoglobin Concent 33 g/dL (31-37) 33 g/dL (31-37) Red Cell Distribution Width 14.6 % (11.5-14.5) 15.1 % (11.5-14.5) Platelet Count 181 x10^3/uL (140-400) 162 x10^3/uL (140-400) Neutrophils (%) (Auto) 55 % (31-73) 54 % (31-73) Lymphocytes (%) (Auto) 27 % (24-48) 25 % (24-48) Monocytes (%) (Auto) 12 % (0-9) 15 % (0-9) Eosinophils (%) (Auto) 5 % (0-3) 6 % (0-3) Basophils (%) (Auto) 1 % (0-3) 1 % (0-3) Neutrophils # (Auto) 2.3 x10^3/uL (1.8-7.7) 1.9 x10^3/uL (1.8-7.7) Lymphocytes # (Auto) 1.1 x10^3/uL (1.0-4.8) 0.8 x10^3/uL (1.0-4.8) Monocytes # (Auto) 0.5 x10^3/uL (0.0-1.1) 0.5 x10^3/uL (0.0-1.1) Eosinophils # (Auto) 0.2 x10^3/uL (0.0-0.7) 0.2 x10^3/uL (0.0-0.7) Basophils # (Auto) 0.0 x10^3/uL (0.0-0.2) 0.0 x10^3/uL (0.0-0.2) Prothrombin Time 15.2 SEC (11.7-14.0) Prothromb Time International Ratio 1.2 (0.8-1.1) Activated Partial Thromboplast Time 34 SEC (24-38) Sodium Level 143 mmol/L (136-145) 145 mmol/L (136-145) Potassium Level 4.2 mmol/L (3.5-5.1) 4.4 mmol/L (3.5-5.1) Chloride Level 108 mmol/L (98-107) 110 mmol/L (98-107) Carbon Dioxide Level 28 mmol/L (21-32) 27 mmol/L (21-32) Anion Gap 7 (6-14) 8 (6-14) Blood Urea Nitrogen 21 mg/dL (8-26) 15 mg/dL (8-26) Creatinine 1.5 mg/dL (0.7-1.3) 1.3 mg/dL (0.7-1.3) Estimated GFR (Cockcroft-Gault) 53.3 62.9 BUN/Creatinine Ratio 14 (6-20) 12 (6-20) Glucose Level 119 mg/dL (70-99) 95 mg/dL (70-99) Lactic Acid Level 1.5 mmol/L (0.4-2.0) Calcium Level 9.1 mg/dL (8.5-10.1) 8.2 mg/dL (8.5-10.1) Magnesium Level 2.0 mg/dL (1.8-2.4) Total Bilirubin 0.3 mg/dL (0.2-1.0) 0.4 mg/dL (0.2-1.0) Aspartate Amino Transf (AST/SGOT) 16 U/L (15-37) 13 U/L (15-37) Alanine Aminotransferase (ALT/SGPT) 14 U/L (16-63) 14 U/L (16-63) Alkaline Phosphatase 64 U/L (46-116) 61 U/L (46-116) Total Protein 6.9 g/dL (6.4-8.2) 6.0 g/dL (6.4-8.2) Albumin 3.4 g/dL (3.4-5.0) 2.9 g/dL (3.4-5.0) Albumin/Globulin Ratio 1.0 (1.0-1.7) 0.9 (1.0-1.7) SARS-CoV-2 Antigen (Rapid) Negative (NEGATIVE) SARS-CoV-2 RNA (FELY) Negative (Negative) Test 02/09/21 05:50 White Blood Count 3.1 x10^3/uL (4.0-11.0) Red Blood Count 3.81 x10^6/uL (4.30-5.70) Hemoglobin 11.7 g/dL (13.0-17.5) Hematocrit 35.4 % (39.0-53.0) Mean Corpuscular Volume 93 fL (79-100) Mean Corpuscular Hemoglobin 31 pg (25-35) Mean Corpuscular Hemoglobin Concent 33 g/dL (31-37) Red Cell Distribution Width 14.6 % (11.5-14.5) Platelet Count 163 x10^3/uL (140-400) Neutrophils (%) (Auto) 57 % (31-73) Lymphocytes (%) (Auto) 23 % (24-48) Monocytes (%) (Auto) 15 % (0-9) Eosinophils (%) (Auto) 5 % (0-3) Basophils (%) (Auto) 1 % (0-3) Neutrophils # (Auto) 1.8 x10^3/uL (1.8-7.7) Lymphocytes # (Auto) 0.7 x10^3/uL (1.0-4.8) Monocytes # (Auto) 0.5 x10^3/uL (0.0-1.1) Eosinophils # (Auto) 0.2 x10^3/uL (0.0-0.7) Basophils # (Auto) 0.0 x10^3/uL (0.0-0.2) Sodium Level 145 mmol/L (136-145) Potassium Level 4.2 mmol/L (3.5-5.1) Chloride Level 108 mmol/L (98-107) Carbon Dioxide Level 27 mmol/L (21-32) Anion Gap 10 (6-14) Blood Urea Nitrogen 13 mg/dL (8-26) Creatinine 1.3 mg/dL (0.7-1.3) Estimated GFR (Cockcroft-Gault) 62.9 Glucose Level 83 mg/dL (70-99) Calcium Level 8.3 mg/dL (8.5-10.1) Laboratory Tests Test 02/08/21 14:35 02/09/21 05:50 SARS-CoV-2 RNA (FELY) Negative (Negative) White Blood Count 3.1 x10^3/uL (4.0-11.0) Red Blood Count 3.81 x10^6/uL (4.30-5.70) Hemoglobin 11.7 g/dL (13.0-17.5) Hematocrit 35.4 % (39.0-53.0) Mean Corpuscular Volume 93 fL (79-100) Mean Corpuscular Hemoglobin 31 pg (25-35) Mean Corpuscular Hemoglobin Concent 33 g/dL (31-37) Red Cell Distribution Width 14.6 % (11.5-14.5) Platelet Count 163 x10^3/uL (140-400) Neutrophils (%) (Auto) 57 % (31-73) Lymphocytes (%) (Auto) 23 % (24-48) Monocytes (%) (Auto) 15 % (0-9) Eosinophils (%) (Auto) 5 % (0-3) Basophils (%) (Auto) 1 % (0-3) Neutrophils # (Auto) 1.8 x10^3/uL (1.8-7.7) Lymphocytes # (Auto) 0.7 x10^3/uL (1.0-4.8) Monocytes # (Auto) 0.5 x10^3/uL (0.0-1.1) Eosinophils # (Auto) 0.2 x10^3/uL (0.0-0.7) Basophils # (Auto) 0.0 x10^3/uL (0.0-0.2) Sodium Level 145 mmol/L (136-145) Potassium Level 4.2 mmol/L (3.5-5.1) Chloride Level 108 mmol/L (98-107) Carbon Dioxide Level 27 mmol/L (21-32) Anion Gap 10 (6-14) Blood Urea Nitrogen 13 mg/dL (8-26) Creatinine 1.3 mg/dL (0.7-1.3) Estimated GFR (Cockcroft-Gault) 62.9 Glucose Level 83 mg/dL (70-99) Calcium Level 8.3 mg/dL (8.5-10.1) Problem List Problems Medical Problems: (1) Perforated abdominal viscus Status: Acute (2) Perforated bowel Status: Acute (3) Pneumatosis intestinalis Status: Acute (4) Small bowel obstruction Status: Acute Assessment/Plan VSS, normal wbc. No abd pain passing flatus will start clear liquids Justicifation of Admission Dx: Justifications for Admission: Justification of Admission Dx: Yes MARY FINNEY MD Feb 09, 2021 09:37
[2021-02-09] MEDS: POTASSIUM CL 20MEQ D5-0.45NACL 1,000 ML IV SCH (09:42)
--- NOTE | 2021-02-09 09:44 | PDOC ---
PROGRESS NOTES Date of Service DATE: 02/09/21 TIME: 09:38 Subjective Subjective surgeon to start clear liquids. had a twinge of para umbilical and upper abdominal pain earlier and resolved. lab reviewed, AA series pending,. no BM. no nausea or vomiting, afebrile. says he is disoriented with prn iv morphine Objective Objective Vital Signs Date Time Temp Pulse Resp B/P (MAP) Pulse Ox O2 Delivery O2 Flow Rate FiO2 02/09/21 08:00 Room Air 02/09/21 07:00 98.4 64 18 147/75 (99) 94 98.4 02/08/21 22:46 2.0 Intake and Output 02/09/21 07:00 Intake Total 100 ml Output Total 1115 ml Balance -1015 ml Intake Oral 0 ml IV Total 100 ml Output Urine Total 1115 ml Physical Exam Abdomen: Normal bowel sounds, Soft, No tenderness Heart: Regular rate, Normal S1, Normal S2 Extremities: No edema General: Alert HEENT: Atraumatic Lungs: Clear to auscultation Neuro: Normal speech Psych/Mental Status: Mental status NL Skin: No rashes Assessment Assessment Problems1. Pneumatosis intestinalis. 2. Suspected small bowel perforation. relatively asymptomatic 3. Coronary artery disease. 4. Hypertension. 5. Hyperlipidemia. 6. Paroxysmal atrial fibrillation. 7. Morbid obesity. 8. Ventral abdominal hernia. 9. Acute kidney injury. improved. Severe protein calorie malnutrition Medical Problems: (1) Perforated abdominal viscus Status: Acute (2) Perforated bowel Status: Acute (3) Pneumatosis intestinalis Status: Acute (4) Small bowel obstruction Status: Acute Plan Plan of Care start clear liquids decrease iv fluids d/c prn iv morphine start prn norco and prn iv fentanyl resume sotalol and amlodipine and losartan and start furosemide tomorrow and kcl and zetia and aspirin and MVI d/c iv metoprolol AA series pending switch to oral pepcid continue lovenox for dvt prophylaxis hold eliquis to see how he does with clear liquids Comment Review of Relevant I have reviewed the following items martín (where applicable) has been applied. Labs Laboratory Tests Test 02/07/21 12:45 02/07/21 14:35 02/08/21 05:00 02/08/21 14:35 White Blood Count 4.2 x10^3/uL (4.0-11.0) 3.4 x10^3/uL (4.0-11.0) Red Blood Count 4.11 x10^6/uL (4.30-5.70) 3.82 x10^6/uL (4.30-5.70) Hemoglobin 12.8 g/dL (13.0-17.5) 11.9 g/dL (13.0-17.5) Hematocrit 38.4 % (39.0-53.0) 35.7 % (39.0-53.0) Mean Corpuscular Volume 93 fL (79-100) 93 fL (79-100) Mean Corpuscular Hemoglobin 31 pg (25-35) 31 pg (25-35) Mean Corpuscular Hemoglobin Concent 33 g/dL (31-37) 33 g/dL (31-37) Red Cell Distribution Width 14.6 % (11.5-14.5) 15.1 % (11.5-14.5) Platelet Count 181 x10^3/uL (140-400) 162 x10^3/uL (140-400) Neutrophils (%) (Auto) 55 % (31-73) 54 % (31-73) Lymphocytes (%) (Auto) 27 % (24-48) 25 % (24-48) Monocytes (%) (Auto) 12 % (0-9) 15 % (0-9) Eosinophils (%) (Auto) 5 % (0-3) 6 % (0-3) Basophils (%) (Auto) 1 % (0-3) 1 % (0-3) Neutrophils # (Auto) 2.3 x10^3/uL (1.8-7.7) 1.9 x10^3/uL (1.8-7.7) Lymphocytes # (Auto) 1.1 x10^3/uL (1.0-4.8) 0.8 x10^3/uL (1.0-4.8) Monocytes # (Auto) 0.5 x10^3/uL (0.0-1.1) 0.5 x10^3/uL (0.0-1.1) Eosinophils # (Auto) 0.2 x10^3/uL (0.0-0.7) 0.2 x10^3/uL (0.0-0.7) Basophils # (Auto) 0.0 x10^3/uL (0.0-0.2) 0.0 x10^3/uL (0.0-0.2) Prothrombin Time 15.2 SEC (11.7-14.0) Prothromb Time International Ratio 1.2 (0.8-1.1) Activated Partial Thromboplast Time 34 SEC (24-38) Sodium Level 143 mmol/L (136-145) 145 mmol/L (136-145) Potassium Level 4.2 mmol/L (3.5-5.1) 4.4 mmol/L (3.5-5.1) Chloride Level 108 mmol/L (98-107) 110 mmol/L (98-107) Carbon Dioxide Level 28 mmol/L (21-32) 27 mmol/L (21-32) Anion Gap 7 (6-14) 8 (6-14) Blood Urea Nitrogen 21 mg/dL (8-26) 15 mg/dL (8-26) Creatinine 1.5 mg/dL (0.7-1.3) 1.3 mg/dL (0.7-1.3) Estimated GFR (Cockcroft-Gault) 53.3 62.9 BUN/Creatinine Ratio 14 (6-20) 12 (6-20) Glucose Level 119 mg/dL (70-99) 95 mg/dL (70-99) Lactic Acid Level 1.5 mmol/L (0.4-2.0) Calcium Level 9.1 mg/dL (8.5-10.1) 8.2 mg/dL (8.5-10.1) Magnesium Level 2.0 mg/dL (1.8-2.4) Total Bilirubin 0.3 mg/dL (0.2-1.0) 0.4 mg/dL (0.2-1.0) Aspartate Amino Transf (AST/SGOT) 16 U/L (15-37) 13 U/L (15-37) Alanine Aminotransferase (ALT/SGPT) 14 U/L (16-63) 14 U/L (16-63) Alkaline Phosphatase 64 U/L (46-116) 61 U/L (46-116) Total Protein 6.9 g/dL (6.4-8.2) 6.0 g/dL (6.4-8.2) Albumin 3.4 g/dL (3.4-5.0) 2.9 g/dL (3.4-5.0) Albumin/Globulin Ratio 1.0 (1.0-1.7) 0.9 (1.0-1.7) SARS-CoV-2 Antigen (Rapid) Negative (NEGATIVE) SARS-CoV-2 RNA (FELY) Negative (Negative) Test 02/09/21 05:50 White Blood Count 3.1 x10^3/uL (4.0-11.0) Red Blood Count 3.81 x10^6/uL (4.30-5.70) Hemoglobin 11.7 g/dL (13.0-17.5) Hematocrit 35.4 % (39.0-53.0) Mean Corpuscular Volume 93 fL (79-100) Mean Corpuscular Hemoglobin 31 pg (25-35) Mean Corpuscular Hemoglobin Concent 33 g/dL (31-37) Red Cell Distribution Width 14.6 % (11.5-14.5) Platelet Count 163 x10^3/uL (140-400) Neutrophils (%) (Auto) 57 % (31-73) Lymphocytes (%) (Auto) 23 % (24-48) Monocytes (%) (Auto) 15 % (0-9) Eosinophils (%) (Auto) 5 % (0-3) Basophils (%) (Auto) 1 % (0-3) Neutrophils # (Auto) 1.8 x10^3/uL (1.8-7.7) Lymphocytes # (Auto) 0.7 x10^3/uL (1.0-4.8) Monocytes # (Auto) 0.5 x10^3/uL (0.0-1.1) Eosinophils # (Auto) 0.2 x10^3/uL (0.0-0.7) Basophils # (Auto) 0.0 x10^3/uL (0.0-0.2) Sodium Level 145 mmol/L (136-145) Potassium Level 4.2 mmol/L (3.5-5.1) Chloride Level 108 mmol/L (98-107) Carbon Dioxide Level 27 mmol/L (21-32) Anion Gap 10 (6-14) Blood Urea Nitrogen 13 mg/dL (8-26) Creatinine 1.3 mg/dL (0.7-1.3) Estimated GFR (Cockcroft-Gault) 62.9 Glucose Level 83 mg/dL (70-99) Calcium Level 8.3 mg/dL (8.5-10.1) Laboratory Tests Test 02/08/21 14:35 02/09/21 05:50 SARS-CoV-2 RNA (FELY) Negative (Negative) White Blood Count 3.1 x10^3/uL (4.0-11.0) Red Blood Count 3.81 x10^6/uL (4.30-5.70) Hemoglobin 11.7 g/dL (13.0-17.5) Hematocrit 35.4 % (39.0-53.0) Mean Corpuscular Volume 93 fL (79-100) Mean Corpuscular Hemoglobin 31 pg (25-35) Mean Corpuscular Hemoglobin Concent 33 g/dL (31-37) Red Cell Distribution Width 14.6 % (11.5-14.5) Platelet Count 163 x10^3/uL (140-400) Neutrophils (%) (Auto) 57 % (31-73) Lymphocytes (%) (Auto) 23 % (24-48) Monocytes (%) (Auto) 15 % (0-9) Eosinophils (%) (Auto) 5 % (0-3) Basophils (%) (Auto) 1 % (0-3) Neutrophils # (Auto) 1.8 x10^3/uL (1.8-7.7) Lymphocytes # (Auto) 0.7 x10^3/uL (1.0-4.8) Monocytes # (Auto) 0.5 x10^3/uL (0.0-1.1) Eosinophils # (Auto) 0.2 x10^3/uL (0.0-0.7) Basophils # (Auto) 0.0 x10^3/uL (0.0-0.2) Sodium Level 145 mmol/L (136-145) Potassium Level 4.2 mmol/L (3.5-5.1) Chloride Level 108 mmol/L (98-107) Carbon Dioxide Level 27 mmol/L (21-32) Anion Gap 10 (6-14) Blood Urea Nitrogen 13 mg/dL (8-26) Creatinine 1.3 mg/dL (0.7-1.3) Estimated GFR (Cockcroft-Gault) 62.9 Glucose Level 83 mg/dL (70-99) Calcium Level 8.3 mg/dL (8.5-10.1) Medications Current Medications Iohexol (Omnipaque 300 Mg/ml) 60 ml 1X ONCE IV ; Start 02/07/21 at 13:45; Stop 02/07/21 at 13:51; Status DC Info (CONTRAST GIVEN -- Rx MONITORING) 1 each PRN DAILY PRN MC SEE COMMENTS; Start 02/07/21 at 14:00; Stop 02/09/21 at 13:59 Piperacillin Sod/ Tazobactam Sod (Zosyn Per Pharmacy) 1 each PRN DAILY PRN MC SEE COMMENTS; Start 02/07/21 at 14:30 Piperacillin Sod/ Tazobactam Sod 2.25 gm/Sodium Chloride 50 ml @ 100 mls/hr 1X ONCE IV Last administered on 02/07/21at 15:59; Start 02/07/21 at 14:45; Stop 02/07/21 at 15:14; Status DC Ondansetron HCl (Zofran) 4 mg PRN Q8HRS PRN IV NAUSEA/VOMITING; Start 02/07/21 at 15:00; Stop 02/07/21 at 15:54; Status DC Morphine Sulfate (Morphine Sulfate) 4 mg PRN Q2HR PRN IV PAIN Last administered on 02/07/21at 18:17; Start 02/07/21 at 15:00; Stop 02/08/21 at 14:59; Status DC Sodium Chloride 1,000 ml @ 75 mls/hr [id number] IV Last administered on 02/07/21at 15:59; Start 02/07/21 at 15:00; Stop 02/08/21 at 14:59; Status DC Piperacillin Sod/ Tazobactam Sod 2.25 gm/Sodium Chloride 50 ml @ 100 mls/hr Q6HRS IV Last administered on 02/08/21at 05:08; Start 02/08/21 at 00:00; Stop 02/08/21 at 11:42; Status DC Potassium Chloride/Dextrose/ Sod Cl 1,000 ml @ 75 mls/hr [id number] IV Last administered on 02/08/21at 09:02; Start 02/07/21 at 15:45 Ondansetron HCl (Zofran) 4 mg PRN Q6HRS PRN IVP NAUSEA/VOMITING Last administered on 02/07/21at 18:17; Start 02/07/21 at 15:45 Famotidine (Pepcid Vial) 20 mg DAILY IVP Last administered on 02/09/21at 08:03; Start 02/07/21 at 18:00 Morphine Sulfate (Morphine Sulfate) 2 mg PRN Q4HRS PRN IV PAIN Last administered on 02/08/21at 22:16; Start 02/07/21 at 15:45 Acetaminophen (Tylenol Supp) 650 mg PRN Q6HRS PRN OR MILD PAIN / TEMP > 100.3'F; Start 02/07/21 at 15:45 Hydralazine HCl (Apresoline Inj) 10 mg PRN Q4HRS PRN IVP ELEVATED BP, SEE COMMENTS; Start 02/07/21 at 15:45 Nitroglycerin (Nitro-Dur) 1 patch DAILY TD Last administered on 02/09/21at 08:04; Start 02/08/21 at 09:00 Enoxaparin Sodium (Lovenox 40mg Syringe) 40 mg Q24H SQ Last administered on 02/09/21at 08:03; Start 02/08/21 at 09:00 Metoprolol Tartrate (Lopressor Vial) 5 mg Q6HRS IVP ; Start 02/08/21 at 10:00; Stop 02/08/21 at 10:09; Status DC Metoprolol Tartrate (Lopressor Vial) 2.5 mg Q6HRS IVP Last administered on 02/09/21at 05:14; Start 02/08/21 at 12:00 Piperacillin Sod/ Tazobactam Sod 3.375 gm/Sodium Chloride 50 ml @ 100 mls/hr Q6HRS IV Last administered on 02/09/21at 05:14; Start 02/08/21 at 12:00 Active Scripts Active Betapace (Sotalol Hcl) 80 Mg Tablet 80 Mg PO BID Ezetimibe 10 Mg Tablet 10 Mg PO DAILY Reported Isosorbide Dinitrate 40 Mg Tablet.er 20 Mg PO TID Furosemide 20 Mg Tablet 20 Mg PO DAILY Docusate Sodium 100 Mg Capsule 1 Cap PO DAILY PRN Gabapentin 600 Mg Tablet 600 Mg PO TID Hydralazine Hcl 25 Mg Tablet 1 Tab PO TID Eliquis (Apixaban) 5 Mg Tablet 5 Mg PO BID Amlodipine Besylate 10 Mg Tablet 10 Mg PO DAILY Aspir 81 (Aspirin) 81 Mg Tablet. 1 Tab PO DAILY Potassium Chloride (Potassium Chloride) 20 Meq Tablet.er 20 Meq PO DAILY Multi Vitamin Daily (Multivitamin) 1 Each Tablet 1 Each PO DAILY Losartan Potassium 100 Mg Tablet 100 Mg PO DAILY Vitals/I & O Vital Sign - Last 24 Hours 02/08/21 02/08/21 02/08/21 02/08/21 10:15 11:00 13:27 15:00 Temp 98.2 98.7 98.2 98.7 Pulse 60 60 62 Resp 20 20 B/P (MAP) 149/74 (99) 149/74 116/77 (90) Pulse Ox 95 93 93 O2 Delivery Room Air Room Air Room Air 02/08/21 02/08/21 02/08/21 02/08/21 18:39 19:34 19:59 22:16 Temp 97.5 97.5 Pulse 62 83 Resp 18 18 B/P (MAP) 116/77 128/75 (92) Pulse Ox 94 94 O2 Delivery Room Air Room Air Room Air O2 Flow Rate 2.0 02/08/21 02/08/21 02/08/21 02/09/21 22:46 23:08 23:21 02:56 Temp 98.0 98.4 98.0 98.4 Pulse 67 67 61 Resp 18 18 18 B/P (MAP) 144/57 (86) 144/57 131/68 (89) Pulse Ox 94 93 97 O2 Delivery Room Air Room Air Room Air O2 Flow Rate 2.0 02/09/21 02/09/21 02/09/21 05:14 07:00 08:00 Temp 98.4 98.4 Pulse 61 64 Resp 18 B/P (MAP) 131/68 147/75 (99) Pulse Ox 94 O2 Delivery Room Air Room Air Intake and Output 02/08/21 02/08/21 02/09/21 15:00 23:00 07:00 Intake Total 0 ml 0 ml 100 ml Output Total 215 ml 400 ml 500 ml Balance -215 ml -400 ml -400 ml Justifications for Admission Other Justification LAN DOWLING MD Feb 09, 2021 09:43
[2021-02-09] MEDS: FAMOTIDINE 20 MG TABLET. PO SCH (10:00)
[2021-02-09 10:11] VITALS: BP 151/79
[2021-02-09] MEDS: SOTALOL 80 MG TABLET. PO SCH ×2 (12:05→20:40)
[2021-02-09] MEDS: MULTIVITAMIN with MINERAL TABLET. PO SCH (12:05)
[2021-02-09] MEDS: EZETIMIBE 10 MG TABLET. PO SCH (12:05)
[2021-02-09] MEDS: FUROSEMIDE 20 MG TABLET PO SCH (12:06)
[2021-02-09] MEDS: POTASSIUM CHLORIDE 20 MEQ TABLET.ER. PO SCH (12:06)
[2021-02-09] MEDS: LOSARTAN POTASSIUM 50 MG TABLET. PO SCH (12:06)
--- NOTE | 2021-02-09 12:14 | NUR ---
SS following up with discharge planning. SS reviewed pt chart and discussed with pt RN. Pt is currently on room air. COVID19 negative. Pt on IV Zosyn. Pt on clear liquid diet now. Pt having abdominal sonogram. Per RN, pt ad liza in room. Discharge plan is to home when medically ready. SS will continue to follow for discharge planning.
[2021-02-09] MEDS: ASPIRIN 325 MG TABLET PO SCH (12:18)
[2021-02-09] MEDS: amLODIPine BESYLATE 10 MG TABLET PO SCH (12:19)
--- NOTE | 2021-02-09 12:32 | NUR ---
LEFT MESSAGE AT DR DOWLING'S OFFICE ON [facility]. PT WOULD LIKE A STOOL SOFTENER.
--- NOTE | 2021-02-09 12:45 | PDOC ---
Infectious Disease Note Subjective: Subjective Patient feels better Abdominal pain is improving Has been passing flatus Denies fever, nausea, vomiting, shortness of breath, diarrhea,, rash Patient to be started on clear liquids today Due to issues per RN Vital Signs: Vital Signs Vital Signs Date Time Temp Pulse Resp B/P (MAP) Pulse Ox O2 Delivery O2 Flow Rate FiO2 02/09/21 12:19 62 151/79 02/09/21 10:11 98.1 96 Room Air 98.1 02/09/21 07:00 18 02/08/21 22:46 2.0 Physical Exam: PHYSICAL EXAM GENERAL: Alert, oriented x 3 male, sitting in chair, in no acute distress. HEENT: Normocephalic, atraumatic, anicteric. No thrush. NECK: Supple, no JVD. LUNGS: Clear bilaterally. No wheezing. HEART: S1, S2. No gallops or murmurs. ABDOMEN: Distended. Bowel sounds present. Mildly tender in the left upper quadrant. No rebound, no guarding. EXTREMITIES: No edema, no cyanosis. DERMATOLOGIC: Warm, dry. No generalized rash. NEUROLOGIC: Alert and oriented x 3, grossly nonfocal. PSYCHIATRIC: Cooperative, appropriate mood and affect. DERMATOLOGIC: Warm and dry. No generalized rash. Chest wall, pacemaker site looks clean. Medications: Inpatient Meds: Medications reviewed. Labs: Lab Laboratory Tests Test 02/08/21 14:35 02/09/21 05:50 SARS-CoV-2 RNA (FELY) Negative (Negative) White Blood Count 3.1 x10^3/uL (4.0-11.0) Red Blood Count 3.81 x10^6/uL (4.30-5.70) Hemoglobin 11.7 g/dL (13.0-17.5) Hematocrit 35.4 % (39.0-53.0) Mean Corpuscular Volume 93 fL (79-100) Mean Corpuscular Hemoglobin 31 pg (25-35) Mean Corpuscular Hemoglobin Concent 33 g/dL (31-37) Red Cell Distribution Width 14.6 % (11.5-14.5) Platelet Count 163 x10^3/uL (140-400) Neutrophils (%) (Auto) 57 % (31-73) Lymphocytes (%) (Auto) 23 % (24-48) Monocytes (%) (Auto) 15 % (0-9) Eosinophils (%) (Auto) 5 % (0-3) Basophils (%) (Auto) 1 % (0-3) Neutrophils # (Auto) 1.8 x10^3/uL (1.8-7.7) Lymphocytes # (Auto) 0.7 x10^3/uL (1.0-4.8) Monocytes # (Auto) 0.5 x10^3/uL (0.0-1.1) Eosinophils # (Auto) 0.2 x10^3/uL (0.0-0.7) Basophils # (Auto) 0.0 x10^3/uL (0.0-0.2) Sodium Level 145 mmol/L (136-145) Potassium Level 4.2 mmol/L (3.5-5.1) Chloride Level 108 mmol/L (98-107) Carbon Dioxide Level 27 mmol/L (21-32) Anion Gap 10 (6-14) Blood Urea Nitrogen 13 mg/dL (8-26) Creatinine 1.3 mg/dL (0.7-1.3) Estimated GFR (Cockcroft-Gault) 62.9 Glucose Level 83 mg/dL (70-99) Calcium Level 8.3 mg/dL (8.5-10.1) Objective: Assessment: 1. Abdominal pain. 2. Suspected small bowel obstruction. 3. Pneumatosis intestinalis from above. 4. Coronary artery disease. 5. Hypertension/hyperlipidemia. 6. Paroxysmal atrial fibrillation. 7. Status post permanent pacemaker. 8. Acute kidney injury, improved. 9. Leukopenia. 10. History of colon cancer, status post resection. 11. History of prostate cancer. 12. Status post cholecystectomy. Plan: Plan of Care 1. Continue Zosyn. 2. Follow up labs and cultures. 3. Continue supportive care. 4. GI team and General Surgery following. Discussed with nursing staff. YING PRO MD Feb 09, 2021 12:45
[2021-02-09] MEDS ORDERED: DOCUSATE SODIUM 100 MG CAPSULE. PO PRN (13:30)
--- NOTE | 2021-02-09 13:46 | PDOC ---
G I PROGRESS NOTE Subjective No complaints. On trial of clears. Objective No reports of any GI issues. Physical Exam Lungs clear anteriorly. RRR Abdomen soft, not tender. Review of Relevant I have reviewed the following items martín (where applicable) has been applied. Labs Laboratory Tests Test 02/07/21 14:35 02/08/21 05:00 02/08/21 14:35 02/09/21 05:50 SARS-CoV-2 Antigen (Rapid) Negative (NEGATIVE) White Blood Count 3.4 x10^3/uL (4.0-11.0) 3.1 x10^3/uL (4.0-11.0) Red Blood Count 3.82 x10^6/uL (4.30-5.70) 3.81 x10^6/uL (4.30-5.70) Hemoglobin 11.9 g/dL (13.0-17.5) 11.7 g/dL (13.0-17.5) Hematocrit 35.7 % (39.0-53.0) 35.4 % (39.0-53.0) Mean Corpuscular Volume 93 fL (79-100) 93 fL (79-100) Mean Corpuscular Hemoglobin 31 pg (25-35) 31 pg (25-35) Mean Corpuscular Hemoglobin Concent 33 g/dL (31-37) 33 g/dL (31-37) Red Cell Distribution Width 15.1 % (11.5-14.5) 14.6 % (11.5-14.5) Platelet Count 162 x10^3/uL (140-400) 163 x10^3/uL (140-400) Neutrophils (%) (Auto) 54 % (31-73) 57 % (31-73) Lymphocytes (%) (Auto) 25 % (24-48) 23 % (24-48) Monocytes (%) (Auto) 15 % (0-9) 15 % (0-9) Eosinophils (%) (Auto) 6 % (0-3) 5 % (0-3) Basophils (%) (Auto) 1 % (0-3) 1 % (0-3) Neutrophils # (Auto) 1.9 x10^3/uL (1.8-7.7) 1.8 x10^3/uL (1.8-7.7) Lymphocytes # (Auto) 0.8 x10^3/uL (1.0-4.8) 0.7 x10^3/uL (1.0-4.8) Monocytes # (Auto) 0.5 x10^3/uL (0.0-1.1) 0.5 x10^3/uL (0.0-1.1) Eosinophils # (Auto) 0.2 x10^3/uL (0.0-0.7) 0.2 x10^3/uL (0.0-0.7) Basophils # (Auto) 0.0 x10^3/uL (0.0-0.2) 0.0 x10^3/uL (0.0-0.2) Sodium Level 145 mmol/L (136-145) 145 mmol/L (136-145) Potassium Level 4.4 mmol/L (3.5-5.1) 4.2 mmol/L (3.5-5.1) Chloride Level 110 mmol/L (98-107) 108 mmol/L (98-107) Carbon Dioxide Level 27 mmol/L (21-32) 27 mmol/L (21-32) Anion Gap 8 (6-14) 10 (6-14) Blood Urea Nitrogen 15 mg/dL (8-26) 13 mg/dL (8-26) Creatinine 1.3 mg/dL (0.7-1.3) 1.3 mg/dL (0.7-1.3) Estimated GFR (Cockcroft-Gault) 62.9 62.9 BUN/Creatinine Ratio 12 (6-20) Glucose Level 95 mg/dL (70-99) 83 mg/dL (70-99) Calcium Level 8.2 mg/dL (8.5-10.1) 8.3 mg/dL (8.5-10.1) Total Bilirubin 0.4 mg/dL (0.2-1.0) Aspartate Amino Transf (AST/SGOT) 13 U/L (15-37) Alanine Aminotransferase (ALT/SGPT) 14 U/L (16-63) Alkaline Phosphatase 61 U/L (46-116) Total Protein 6.0 g/dL (6.4-8.2) Albumin 2.9 g/dL (3.4-5.0) Albumin/Globulin Ratio 0.9 (1.0-1.7) SARS-CoV-2 RNA (FELY) Negative (Negative) Laboratory Tests Test 02/08/21 14:35 02/09/21 05:50 SARS-CoV-2 RNA (FELY) Negative (Negative) White Blood Count 3.1 x10^3/uL (4.0-11.0) Red Blood Count 3.81 x10^6/uL (4.30-5.70) Hemoglobin 11.7 g/dL (13.0-17.5) Hematocrit 35.4 % (39.0-53.0) Mean Corpuscular Volume 93 fL (79-100) Mean Corpuscular Hemoglobin 31 pg (25-35) Mean Corpuscular Hemoglobin Concent 33 g/dL (31-37) Red Cell Distribution Width 14.6 % (11.5-14.5) Platelet Count 163 x10^3/uL (140-400) Neutrophils (%) (Auto) 57 % (31-73) Lymphocytes (%) (Auto) 23 % (24-48) Monocytes (%) (Auto) 15 % (0-9) Eosinophils (%) (Auto) 5 % (0-3) Basophils (%) (Auto) 1 % (0-3) Neutrophils # (Auto) 1.8 x10^3/uL (1.8-7.7) Lymphocytes # (Auto) 0.7 x10^3/uL (1.0-4.8) Monocytes # (Auto) 0.5 x10^3/uL (0.0-1.1) Eosinophils # (Auto) 0.2 x10^3/uL (0.0-0.7) Basophils # (Auto) 0.0 x10^3/uL (0.0-0.2) Sodium Level 145 mmol/L (136-145) Potassium Level 4.2 mmol/L (3.5-5.1) Chloride Level 108 mmol/L (98-107) Carbon Dioxide Level 27 mmol/L (21-32) Anion Gap 10 (6-14) Blood Urea Nitrogen 13 mg/dL (8-26) Creatinine 1.3 mg/dL (0.7-1.3) Estimated GFR (Cockcroft-Gault) 62.9 Glucose Level 83 mg/dL (70-99) Calcium Level 8.3 mg/dL (8.5-10.1) Vitals/I & O Vital Sign - Last 24 Hours 02/08/21 02/08/21 02/08/21 02/08/21 15:00 18:39 19:34 19:59 Temp 98.7 97.5 98.7 97.5 Pulse 62 62 83 Resp 20 18 B/P (MAP) 116/77 (90) 116/77 128/75 (92) Pulse Ox 93 94 O2 Delivery Room Air Room Air Room Air 02/08/21 02/08/21 02/08/21 02/08/21 22:16 22:46 23:08 23:21 Temp 98.0 98.0 Pulse 67 67 Resp 18 18 18 B/P (MAP) 144/57 (86) 144/57 Pulse Ox 94 94 93 O2 Delivery Room Air Room Air Room Air O2 Flow Rate 2.0 2.0 02/09/21 02/09/21 02/09/21 02/09/21 02:56 05:14 07:00 08:00 Temp 98.4 98.4 98.4 98.4 Pulse 61 61 64 Resp 18 18 B/P (MAP) 131/68 (89) 131/68 147/75 (99) Pulse Ox 97 94 O2 Delivery Room Air Room Air Room Air 02/09/21 02/09/21 02/09/21 02/09/21 10:11 12:05 12:06 12:19 Temp 98.1 98.1 Pulse 62 62 62 62 B/P (MAP) 151/79 (103) 151/79 151/79 151/79 Pulse Ox 96 O2 Delivery Room Air Intake and Output 02/08/21 02/08/21 02/09/21 15:00 23:00 07:00 Intake Total 0 ml 0 ml 100 ml Output Total 215 ml 400 ml 500 ml Balance -215 ml -400 ml -400 ml Images AAS reviewed; continued dilated small bowel. Problem List Problems Medical Problems: (1) Perforated abdominal viscus Status: Acute (2) Perforated bowel Status: Acute (3) Pneumatosis intestinalis Status: Acute (4) Small bowel obstruction Status: Acute Assessment SBO/small perf? Maybe into mesentery w/o peritonitis. Clinically better than his imaging. Plan of Care Note Continue as now. Monitor closely on po. Worsens-->repeat CT and/or consider exploration. Off the weekend. Coverage available if needed. Justicifation of Admission Dx: Justifications for Admission: Justification of Admission Dx: Yes LAN CANO MD Feb 09, 2021 13:46
--- NOTE | 2021-02-09 13:47 | PDOC ---
LILIBETH [facility] MAGISTRATE 02/09/21 1347: CARDIO Progress Notes Date and Time Date of Service 02/09/21 Time of Evaluation 1220 Subjective Subjective: No Chest Pain, No shortness of breath, Other (abdominal pain better, eating/drinking clears) Vitals Vitals Vital Signs Date Time Temp Pulse Resp B/P (MAP) Pulse Ox O2 Delivery O2 Flow Rate FiO2 02/09/21 12:19 62 151/79 02/09/21 10:11 98.1 96 Room Air 98.1 02/09/21 07:00 18 02/08/21 22:46 2.0 Weight Weight [ ] Input and Output Intake and Output Intake and Output 02/09/21 07:00 Intake Total 100 ml Output Total 1115 ml Balance -1015 ml Intake Oral 0 ml IV Total 100 ml Output Urine Total 1115 ml Laboratory Labs Laboratory Tests Test 02/08/21 14:35 02/09/21 05:50 SARS-CoV-2 RNA (FELY) Negative (Negative) White Blood Count 3.1 x10^3/uL (4.0-11.0) Red Blood Count 3.81 x10^6/uL (4.30-5.70) Hemoglobin 11.7 g/dL (13.0-17.5) Hematocrit 35.4 % (39.0-53.0) Mean Corpuscular Volume 93 fL (79-100) Mean Corpuscular Hemoglobin 31 pg (25-35) Mean Corpuscular Hemoglobin Concent 33 g/dL (31-37) Red Cell Distribution Width 14.6 % (11.5-14.5) Platelet Count 163 x10^3/uL (140-400) Neutrophils (%) (Auto) 57 % (31-73) Lymphocytes (%) (Auto) 23 % (24-48) Monocytes (%) (Auto) 15 % (0-9) Eosinophils (%) (Auto) 5 % (0-3) Basophils (%) (Auto) 1 % (0-3) Neutrophils # (Auto) 1.8 x10^3/uL (1.8-7.7) Lymphocytes # (Auto) 0.7 x10^3/uL (1.0-4.8) Monocytes # (Auto) 0.5 x10^3/uL (0.0-1.1) Eosinophils # (Auto) 0.2 x10^3/uL (0.0-0.7) Basophils # (Auto) 0.0 x10^3/uL (0.0-0.2) Sodium Level 145 mmol/L (136-145) Potassium Level 4.2 mmol/L (3.5-5.1) Chloride Level 108 mmol/L (98-107) Carbon Dioxide Level 27 mmol/L (21-32) Anion Gap 10 (6-14) Blood Urea Nitrogen 13 mg/dL (8-26) Creatinine 1.3 mg/dL (0.7-1.3) Estimated GFR (Cockcroft-Gault) 62.9 Glucose Level 83 mg/dL (70-99) Calcium Level 8.3 mg/dL (8.5-10.1) Physical Exam HEENT: Neck Supple W Full Motion Chest: Symmetric LUNGS: Clear to Auscultation Heart: RRR Abdomen: Other (mild tenderness ) Extremities: No Edema Neurology: alert, oriented, follow commands Assessment Assessment 1. Abdominal pain; imaging concerning for perforated SBO. 2. CAD: 2014 [facility] revealed distal mild disease to RCA otherwise normal coronaries. MPI 04/15 without evidence of ischemia. Echo 01/14 with preserved LV systolic function. clinically stable 3. PAFIB: maintaining SR with Sotalol. QTc 440 . 4. Hypertension; controlled 5. Hyperlipidemia; allergy to stating. on zetia at home 5. H/o SSS s/p PPM ([facility]). SR Recommendations Continue Sotalol for rhythm maintenance Resume Eliquis when okay from GS standpoint Secondary prevention Stable from CV standpoint Follow GS recommendations Justicifation of Admission Dx: Justifications for Admission: Justification of Admission Dx: Yes PRASANNA HUNTER MD 02/09/21 1709: CARDIO Progress Notes Assessment Assessment Patient seen and examined. Agree with OR SCRUB TECH's assessment and plan. PAF maintaining sinus rhythm. CAD status clinically stable. Telemetry did not show any significant arrhythmias. Continue management of SBO per GS team Resume Eliquis when okay from surgical standpoint Follow-up in our office in 1 month LILIBETH LONGORIA APRN Feb 09, 2021 13:47 PRASANNA HUNTER MD Feb 09, 2021 17:09
--- NOTE | 2021-02-09 14:15 | NUR ---
ASSUMED PATIENT CARE AT THIS TIME, PATIENT SITTING UP IN CHAIR AT THE BEDSIDE, ALERT AND VERBALLY RESPONSIVE AND DENIES PAIN/DISCOMFORT, PATIENT ENCOURAGED TO USE CALL LIGHT IF HE NEEDED ANYTHING.
[2021-02-09 14:32] VITALS: BP 146/86
[2021-02-09 19:51] VITALS: BP 134/74
[2021-02-09] MEDS: HYDROcodone/APAP 5/325MG 1 TAB TABLET PO PRN (20:40)
[2021-02-09] MEDS: LACTOBACILLUS RHAMNOSUS GG 1 CAPSULE. PO SCH (20:40)
[2021-02-09 22:59] VITALS: BP 157/79
[2021-02-10 03:08] VITALS: BP 182/76
[2021-02-10] MEDS: PIPERACILLIN/TAZOBACTAM 3.375 GM in IV NORMAL SALINE 50ML 50 ML IV SCH ×3 (05:03→18:00)
[2021-02-10 07:00] VITALS: BP 179/88
[2021-02-10] MEDS ORDERED: ASPIRIN CHEWABLE 81 MG TABLET. ONE ×2 (07:53→08:00)
[2021-02-10 07:54] LABS: BASO % 1 % (0-3); EOS # 0.1 x10^3/uL (0.0-0.7); EOS % 2 % (0-3); HEMATOCRIT 38.1 % (39.0-53.0); HEMOGLOBIN 12.6 g/dL (13.0-17.5); LYMPH # 0.8 x10^3/uL (1.0-4.8); LYMPH % 23 % (24-48); MEAN CORPUSCULAR HEMOGLOBIN 31 pg (25-35); MEAN CORPUSCULAR HGB CONC 33 g/dL (31-37); MEAN CORPUSCULAR VOLUME 93 fL (79-100); MONO # 0.4 x10^3/uL (0.0-1.1); MONO % 12 % (0-9); NEUT # 2.3 x10^3/uL (1.8-7.7); NEUT % 63 % (31-73); PLATELET COUNT 176 x10^3/uL (140-400); RED BLOOD COUNT 4.09 x10^6/uL (4.30-5.70); RED CELL DISTRIBUTION WIDTH 14.4 % (11.5-14.5); WHITE BLOOD COUNT 3.7 x10^3/uL (4.0-11.0)
[2021-02-10] MEDS: FUROSEMIDE 20 MG TABLET PO SCH (07:56)
[2021-02-10] MEDS: amLODIPine BESYLATE 10 MG TABLET PO SCH (07:56)
[2021-02-10] MEDS: POTASSIUM CHLORIDE 20 MEQ TABLET.ER. PO SCH (07:56)
[2021-02-10] MEDS: MULTIVITAMIN with MINERAL TABLET. PO SCH (07:57)
[2021-02-10] MEDS: SOTALOL 80 MG TABLET. PO SCH ×2 (07:57→20:43)
[2021-02-10] MEDS: LACTOBACILLUS RHAMNOSUS GG 1 CAPSULE. PO SCH ×2 (07:58→20:44)
[2021-02-10] MEDS: FAMOTIDINE 20 MG TABLET. PO SCH (07:58)
[2021-02-10] MEDS: LOSARTAN POTASSIUM 50 MG TABLET. PO SCH (07:59)
[2021-02-10] MEDS: ASPIRIN 325 MG TABLET PO SCH (07:59)
[2021-02-10] MEDS: ENOXAPARIN 40 MG/0.4 ML SYRINGE. SQ SCH (07:59)
[2021-02-10] MEDS: EZETIMIBE 10 MG TABLET. PO SCH (07:59)
[2021-02-10] MEDS: POTASSIUM CL 20MEQ D5-0.45NACL 1,000 ML IV SCH (08:02)
[2021-02-10 08:23] LABS: CALCIUM 8.8 mg/dL (8.5-10.1); CREATININE 1.4 mg/dL (0.7-1.3); GFR 57.7; MAGNESIUM 1.8 mg/dL (1.8-2.4); POTASSIUM 4.3 mmol/L (3.5-5.1)
--- NOTE | 2021-02-10 08:45 | PDOC ---
Infectious Disease Note Subjective: Subjective Patient feels better Abdominal pain is improving had bm this am had hallucinations last night Denies fever, nausea, vomiting, shortness of breath, diarrhea,, rash on clear liquids No acute issues per RN Vital Signs: Vital Signs Vital Signs Date Time Temp Pulse Resp B/P (MAP) Pulse Ox O2 Delivery O2 Flow Rate FiO2 02/10/21 08:00 Room Air 02/10/21 07:59 62 182/76 02/10/21 07:00 97.7 19 94 97.7 02/09/21 21:40 2.0 Physical Exam: PHYSICAL EXAM GENERAL: Alert, oriented x 3 male, sitting in chair, in no acute distress. HEENT: Normocephalic, atraumatic, anicteric. No thrush. NECK: Supple, no JVD. LUNGS: Clear bilaterally. No wheezing. HEART: S1, S2. No gallops or murmurs. ABDOMEN: Distended. Bowel sounds present. Mildly tender in the left upper quadrant. No rebound, no guarding. EXTREMITIES: No edema, no cyanosis. DERMATOLOGIC: Warm, dry. No generalized rash. NEUROLOGIC: Alert and oriented x 3, grossly nonfocal. PSYCHIATRIC: Cooperative, appropriate mood and affect. DERMATOLOGIC: Warm and dry. No generalized rash. Chest wall, pacemaker site looks clean. Medications: Inpatient Meds: Medications reviewed. Labs: Lab Laboratory Tests Test 02/10/21 07:15 02/10/21 07:40 Sodium Level 145 mmol/L (136-145) Potassium Level 4.3 mmol/L (3.5-5.1) Chloride Level 107 mmol/L (98-107) Carbon Dioxide Level 29 mmol/L (21-32) Anion Gap 9 (6-14) Blood Urea Nitrogen 9 mg/dL (8-26) Creatinine 1.4 mg/dL (0.7-1.3) Estimated GFR (Cockcroft-Gault) 57.7 Glucose Level 117 mg/dL (70-99) Calcium Level 8.8 mg/dL (8.5-10.1) Magnesium Level 1.8 mg/dL (1.8-2.4) White Blood Count 3.7 x10^3/uL (4.0-11.0) Red Blood Count 4.09 x10^6/uL (4.30-5.70) Hemoglobin 12.6 g/dL (13.0-17.5) Hematocrit 38.1 % (39.0-53.0) Mean Corpuscular Volume 93 fL (79-100) Mean Corpuscular Hemoglobin 31 pg (25-35) Mean Corpuscular Hemoglobin Concent 33 g/dL (31-37) Red Cell Distribution Width 14.4 % (11.5-14.5) Platelet Count 176 x10^3/uL (140-400) Neutrophils (%) (Auto) 63 % (31-73) Lymphocytes (%) (Auto) 23 % (24-48) Monocytes (%) (Auto) 12 % (0-9) Eosinophils (%) (Auto) 2 % (0-3) Basophils (%) (Auto) 1 % (0-3) Neutrophils # (Auto) 2.3 x10^3/uL (1.8-7.7) Lymphocytes # (Auto) 0.8 x10^3/uL (1.0-4.8) Monocytes # (Auto) 0.4 x10^3/uL (0.0-1.1) Eosinophils # (Auto) 0.1 x10^3/uL (0.0-0.7) Basophils # (Auto) 0.0 x10^3/uL (0.0-0.2) Objective: Assessment: 1. Abdominal pain. 2. Suspected small bowel obstruction. 3. Pneumatosis intestinalis from above. Repeat imaging noted, pt is clinically improving though 4. Coronary artery disease. 5. Hypertension/hyperlipidemia. 6. Paroxysmal atrial fibrillation. 7. Status post permanent pacemaker. 8. Acute kidney injury, improved. 9. Leukopenia. improving ,etiology ? , 10. History of colon cancer, status post resection. 11. History of prostate cancer. 12. Status post cholecystectomy. Plan: Plan of Care 1. Continue Zosyn. 2. Follow up labs and cultures. 3. Continue supportive care. 4. GI team and General Surgery following. 5. Trend WBC Discussed with nursing staff. YING PRO MD Feb 10, 2021 08:45
--- NOTE | 2021-02-10 10:48 | PDOC ---
PROGRESS NOTES Date of Service DATE: 02/10/21 TIME: 10:28 Subjective Subjective bp is high and will resume isordil and hydralazine . lab reviewed. AA series report from yesterday reviewed. has insomnia and will order trazodone at hs. he took norco last night for insomnia and hallucinated. told to take norco prn for pain,. drank clear liquids but did not drink a lot of fluids. he had a BM. denies abdominal pain. lab reviewed. Objective Objective Vital Signs Date Time Temp Pulse Resp B/P (MAP) Pulse Ox O2 Delivery O2 Flow Rate FiO2 02/10/21 08:00 Room Air 02/10/21 07:59 62 182/76 02/10/21 07:00 97.7 19 94 97.7 02/09/21 21:40 2.0 Intake and Output 02/10/21 07:00 Intake Total 2440 ml Output Total 1900 ml Balance 540 ml Intake Oral 1240 ml IV Total 1200 ml Output Urine Total 1900 ml Physical Exam Abdomen: Normal bowel sounds, Soft, No tenderness, Other (obese) Heart: Regular rate, Normal S1, Normal S2 Extremities: No edema General: Alert HEENT: Atraumatic Lungs: Clear to auscultation Neuro: Normal speech Psych/Mental Status: Mood NL Skin: No rashes Assessment Assessment Problems1. Pneumatosis intestinalis. 2. Suspected small bowel perforation. relatively asymptomatic 3. Coronary artery disease. 4. Hypertension. bp high 5. Hyperlipidemia. 6. Paroxysmal atrial fibrillation. 7. Morbid obesity. 8. Ventral abdominal hernia. 9. Acute kidney injury. improved. Severe protein calorie malnutrition insomnia Medical Problems: (1) Perforated abdominal viscus Status: Acute (2) Perforated bowel Status: Acute (3) Pneumatosis intestinalis Status: Acute (4) Small bowel obstruction Status: Acute Plan Plan of Care continue iv zosyn continue iv fluids lab and AA series tomorrow diet per surgeon. discussed with his nurse resume isordil and hydralazine resume gabapentin at half dose. creatinine 1.5. start hs trazodone Comment Review of Relevant I have reviewed the following items martín (where applicable) has been applied. Labs Laboratory Tests Test 02/08/21 14:35 02/09/21 05:50 02/10/21 07:15 02/10/21 07:40 SARS-CoV-2 RNA (FELY) Negative (Negative) White Blood Count 3.1 x10^3/uL (4.0-11.0) 3.7 x10^3/uL (4.0-11.0) Red Blood Count 3.81 x10^6/uL (4.30-5.70) 4.09 x10^6/uL (4.30-5.70) Hemoglobin 11.7 g/dL (13.0-17.5) 12.6 g/dL (13.0-17.5) Hematocrit 35.4 % (39.0-53.0) 38.1 % (39.0-53.0) Mean Corpuscular Volume 93 fL (79-100) 93 fL (79-100) Mean Corpuscular Hemoglobin 31 pg (25-35) 31 pg (25-35) Mean Corpuscular Hemoglobin Concent 33 g/dL (31-37) 33 g/dL (31-37) Red Cell Distribution Width 14.6 % (11.5-14.5) 14.4 % (11.5-14.5) Platelet Count 163 x10^3/uL (140-400) 176 x10^3/uL (140-400) Neutrophils (%) (Auto) 57 % (31-73) 63 % (31-73) Lymphocytes (%) (Auto) 23 % (24-48) 23 % (24-48) Monocytes (%) (Auto) 15 % (0-9) 12 % (0-9) Eosinophils (%) (Auto) 5 % (0-3) 2 % (0-3) Basophils (%) (Auto) 1 % (0-3) 1 % (0-3) Neutrophils # (Auto) 1.8 x10^3/uL (1.8-7.7) 2.3 x10^3/uL (1.8-7.7) Lymphocytes # (Auto) 0.7 x10^3/uL (1.0-4.8) 0.8 x10^3/uL (1.0-4.8) Monocytes # (Auto) 0.5 x10^3/uL (0.0-1.1) 0.4 x10^3/uL (0.0-1.1) Eosinophils # (Auto) 0.2 x10^3/uL (0.0-0.7) 0.1 x10^3/uL (0.0-0.7) Basophils # (Auto) 0.0 x10^3/uL (0.0-0.2) 0.0 x10^3/uL (0.0-0.2) Sodium Level 145 mmol/L (136-145) 145 mmol/L (136-145) Potassium Level 4.2 mmol/L (3.5-5.1) 4.3 mmol/L (3.5-5.1) Chloride Level 108 mmol/L (98-107) 107 mmol/L (98-107) Carbon Dioxide Level 27 mmol/L (21-32) 29 mmol/L (21-32) Anion Gap 10 (6-14) 9 (6-14) Blood Urea Nitrogen 13 mg/dL (8-26) 9 mg/dL (8-26) Creatinine 1.3 mg/dL (0.7-1.3) 1.4 mg/dL (0.7-1.3) Estimated GFR (Cockcroft-Gault) 62.9 57.7 Glucose Level 83 mg/dL (70-99) 117 mg/dL (70-99) Calcium Level 8.3 mg/dL (8.5-10.1) 8.8 mg/dL (8.5-10.1) Magnesium Level 1.8 mg/dL (1.8-2.4) Laboratory Tests Test 02/10/21 07:15 02/10/21 07:40 Sodium Level 145 mmol/L (136-145) Potassium Level 4.3 mmol/L (3.5-5.1) Chloride Level 107 mmol/L (98-107) Carbon Dioxide Level 29 mmol/L (21-32) Anion Gap 9 (6-14) Blood Urea Nitrogen 9 mg/dL (8-26) Creatinine 1.4 mg/dL (0.7-1.3) Estimated GFR (Cockcroft-Gault) 57.7 Glucose Level 117 mg/dL (70-99) Calcium Level 8.8 mg/dL (8.5-10.1) Magnesium Level 1.8 mg/dL (1.8-2.4) White Blood Count 3.7 x10^3/uL (4.0-11.0) Red Blood Count 4.09 x10^6/uL (4.30-5.70) Hemoglobin 12.6 g/dL (13.0-17.5) Hematocrit 38.1 % (39.0-53.0) Mean Corpuscular Volume 93 fL (79-100) Mean Corpuscular Hemoglobin 31 pg (25-35) Mean Corpuscular Hemoglobin Concent 33 g/dL (31-37) Red Cell Distribution Width 14.4 % (11.5-14.5) Platelet Count 176 x10^3/uL (140-400) Neutrophils (%) (Auto) 63 % (31-73) Lymphocytes (%) (Auto) 23 % (24-48) Monocytes (%) (Auto) 12 % (0-9) Eosinophils (%) (Auto) 2 % (0-3) Basophils (%) (Auto) 1 % (0-3) Neutrophils # (Auto) 2.3 x10^3/uL (1.8-7.7) Lymphocytes # (Auto) 0.8 x10^3/uL (1.0-4.8) Monocytes # (Auto) 0.4 x10^3/uL (0.0-1.1) Eosinophils # (Auto) 0.1 x10^3/uL (0.0-0.7) Basophils # (Auto) 0.0 x10^3/uL (0.0-0.2) Medications Current Medications Iohexol (Omnipaque 300 Mg/ml) 60 ml 1X ONCE IV ; Start 02/07/21 at 13:45; Stop 02/07/21 at 13:51; Status DC Info (CONTRAST GIVEN -- Rx MONITORING) 1 each PRN DAILY PRN MC SEE COMMENTS; Start 02/07/21 at 14:00; Stop 02/09/21 at 13:59; Status DC Piperacillin Sod/ Tazobactam Sod (Zosyn Per Pharmacy) 1 each PRN DAILY PRN MC SEE COMMENTS; Start 02/07/21 at 14:30 Piperacillin Sod/ Tazobactam Sod 2.25 gm/Sodium Chloride 50 ml @ 100 mls/hr 1X ONCE IV Last administered on 02/07/21at 15:59; Start 02/07/21 at 14:45; Stop 02/07/21 at 15:14; Status DC Ondansetron HCl (Zofran) 4 mg PRN Q8HRS PRN IV NAUSEA/VOMITING; Start 02/07/21 at 15:00; Stop 02/07/21 at 15:54; Status DC Morphine Sulfate (Morphine Sulfate) 4 mg PRN Q2HR PRN IV PAIN Last administered on 02/07/21at 18:17; Start 02/07/21 at 15:00; Stop 02/08/21 at 14:59; Status DC Sodium Chloride 1,000 ml @ 75 mls/hr [id number] IV Last administered on 02/07/21at 15:59; Start 02/07/21 at 15:00; Stop 02/08/21 at 14:59; Status DC Piperacillin Sod/ Tazobactam Sod 2.25 gm/Sodium Chloride 50 ml @ 100 mls/hr Q6HRS IV Last administered on 02/08/21at 05:08; Start 02/08/21 at 00:00; Stop 02/08/21 at 11:42; Status DC Potassium Chloride/Dextrose/ Sod Cl 1,000 ml @ 40 mls/hr Q24H IV Last administered on 02/10/21at 08:02; Start 02/07/21 at 15:45 Ondansetron HCl (Zofran) 4 mg PRN Q6HRS PRN IVP NAUSEA/VOMITING Last administered on 02/07/21at 18:17; Start 02/07/21 at 15:45 Famotidine (Pepcid Vial) 20 mg DAILY IVP Last administered on 02/09/21at 08:03; Start 02/07/21 at 18:00; Stop 02/09/21 at 09:38; Status DC Morphine Sulfate (Morphine Sulfate) 2 mg PRN Q4HRS PRN IV PAIN Last administered on 02/08/21at 22:16; Start 02/07/21 at 15:45; Stop 02/09/21 at 09:38; Status DC Acetaminophen (Tylenol Supp) 650 mg PRN Q6HRS PRN PA MILD PAIN / TEMP > 100.3'F; Start 02/07/21 at 15:45; Stop 02/09/21 at 09:38; Status DC Hydralazine HCl (Apresoline Inj) 10 mg PRN Q4HRS PRN IVP ELEVATED BP, SEE COMMENTS; Start 02/07/21 at 15:45 Nitroglycerin (Nitro-Dur) 1 patch DAILY TD Last administered on 02/09/21at 08:04; Start 02/08/21 at 09:00; Stop 02/09/21 at 09:38; Status DC Enoxaparin Sodium (Lovenox 40mg Syringe) 40 mg Q24H SQ Last administered on 02/10/21at 07:59; Start 02/08/21 at 09:00 Metoprolol Tartrate (Lopressor Vial) 5 mg Q6HRS IVP ; Start 02/08/21 at 10:00; Stop 02/08/21 at 10:09; Status DC Metoprolol Tartrate (Lopressor Vial) 2.5 mg Q6HRS IVP Last administered on 02/09/21at 05:14; Start 02/08/21 at 12:00; Stop 02/09/21 at 09:38; Status DC Piperacillin Sod/ Tazobactam Sod 3.375 gm/Sodium Chloride 50 ml @ 100 mls/hr Q6HRS IV Last administered on 02/10/21at 05:03; Start 02/08/21 at 12:00 Acetaminophen (Tylenol) 650 mg PRN Q6HRS PRN PO MILD PAIN / TEMP > 100.3'F; Start 02/09/21 at 09:30 Famotidine (Pepcid) 20 mg DAILY PO ; Start 02/09/21 at 10:00 Acetaminophen/ Hydrocodone Bitart (Lortab 5/325) 1 tab PRN Q4HRS PRN PO MODERATE TO SEVERE PAIN Last administered on 02/09/21at 20:40; Start 02/09/21 at 09:30 Fentanyl Citrate (Fentanyl 2ml Vial) 25 mcg PRN Q4HRS PRN IVP MODERATE PAIN; Start 02/09/21 at 09:30 Amlodipine Besylate (Norvasc) 10 mg DAILY PO Last administered on 02/10/21at 07:56; Start 02/09/21 at 10:00 Furosemide (Lasix) 20 mg DAILY PO Last administered on 02/10/21at 07:56; Start 02/09/21 at 10:00 Potassium Chloride (Klor-Con) 20 meq DAILYWBKFT PO Last administered on 02/10/21at 07:56; Start 02/09/21 at 10:00 EZETIMIBE (Zetia) 10 mg DAILY PO Last administered on 02/10/21at 07:59; Start 02/09/21 at 10:00 Nitroglycerin (Nitrostat) 0.4 mg PRN Q5MIN PRN SL CHEST PAIN; Start 02/09/21 at 09:30 Losartan Potassium (Cozaar) 100 mg DAILY PO Last administered on 02/10/21at 07:59; Start 02/09/21 at 10:00 Multivitamins (Thera M Plus) 1 tab DAILY PO Last administered on 02/10/21at 07:57; Start 02/09/21 at 10:00 Aspirin (Misty Aspirin) 81 mg DAILYWBKFT PO Last administered on 02/09/21at 12:18; Start 02/09/21 at 12:00; Stop 02/10/21 at 08:57; Status DC Sotalol HCl (Betapace) 80 mg BID PO Last administered on 02/10/21at 07:57; Start 02/09/21 at 10:00 Lactobacillus Rhamnosus (Culturelle) 1 cap BID PO Last administered on 02/10/21at 07:58; Start 02/09/21 at 21:00 Docusate Sodium (Colace) 100 mg PRN BID PRN PO HARD STOOLS; Start 02/09/21 at 13:30 Aspirin (Aspirin Chewable) 81 mg STK-MED ONCE .ROUTE ; Start 02/10/21 at 07:53; Stop 02/10/21 at 07:53; Status DC Aspirin (Ecotrin) 81 mg [id number] PO ; Start 02/11/21 at 08:00 Active Scripts Active Betapace (Sotalol Hcl) 80 Mg Tablet 80 Mg PO BID Ezetimibe 10 Mg Tablet 10 Mg PO DAILY Reported Isosorbide Dinitrate 40 Mg Tablet.er 20 Mg PO TID Furosemide 20 Mg Tablet 20 Mg PO DAILY Docusate Sodium 100 Mg Capsule 1 Cap PO DAILY PRN Gabapentin 600 Mg Tablet 600 Mg PO TID Hydralazine Hcl 25 Mg Tablet 1 Tab PO TID Eliquis (Apixaban) 5 Mg Tablet 5 Mg PO BID Amlodipine Besylate 10 Mg Tablet 10 Mg PO DAILY Aspir 81 (Aspirin) 81 Mg Tablet.dr 1 Tab PO DAILY Potassium Chloride (Potassium Chloride) 20 Meq Tablet.er 20 Meq PO DAILY Multi Vitamin Daily (Multivitamin) 1 Each Tablet 1 Each PO DAILY Losartan Potassium 100 Mg Tablet 100 Mg PO DAILY Vitals/I & O Vital Sign - Last 24 Hours 02/09/21 02/09/21 02/09/21 02/09/21 12:05 12:06 12:19 14:32 Temp 97.9 97.9 Pulse 62 62 62 58 B/P (MAP) 151/79 151/79 151/79 146/86 (106) Pulse Ox 95 O2 Delivery Room Air 02/09/21 02/09/21 02/09/21 02/09/21 19:51 20:00 20:40 20:40 Temp 98.7 98.7 Pulse 62 62 Resp 18 18 B/P (MAP) 134/74 (94) 134/74 Pulse Ox 93 93 O2 Delivery Room Air Room Air Room Air O2 Flow Rate 2.0 02/09/21 02/09/21 02/10/21 02/10/21 21:40 22:59 03:08 07:00 Temp 98.1 98.0 97.7 98.1 98.0 97.7 Pulse 70 62 62 Resp 18 19 19 19 B/P (MAP) 157/79 (105) 182/76 (111) 179/88 (118) Pulse Ox 98 98 95 94 O2 Delivery Room Air Room Air Room Air Room Air O2 Flow Rate 2.0 02/10/21 02/10/21 02/10/21 02/10/21 07:56 07:57 07:59 08:00 Pulse 62 62 62 B/P (MAP) 182/76 182/76 182/76 O2 Delivery Room Air Intake and Output 02/09/21 02/09/21 02/10/21 15:00 23:00 07:00 Intake Total 1740 ml 500 ml 200 ml Output Total 250 ml 1350 ml 300 ml Balance 1490 ml -850 ml -100 ml Justifications for Admission Other Justification LAN DOWLING MD Feb 10, 2021 10:48
[2021-02-10 11:31] VITALS: BP 170/84
--- NOTE | 2021-02-10 12:01 | PDOC ---
Progress Note Current Problem List Problems: (1) Perforated abdominal viscus (2) Pneumatosis intestinalis Subjective Subjective Patient feels better Abdominal pain is improving had bm this am had hallucinations last night Denies fever, nausea, vomiting, shortness of breath, diarrhea,, rash on clear liquids No acute issues per RN 02/10 pt contunue to have no abd pain. tolerated tenzin clear. had bm this am. apparently had pain initially 3 weeks ago lasing on day, then recyrred 2 weeks later. ROS ROS No nausea No vomiting No pain No rash 02/10 had difficulty sleeping and given hydrocodone and has hallucination from it. clear this am. Vital Sign Vital Signs Vital Signs Date Time Temp Pulse Resp B/P (MAP) Pulse Ox O2 Delivery O2 Flow Rate FiO2 02/10/21 11:31 97.3 60 19 170/84 (112) 95 Room Air 97.3 02/09/21 21:40 2.0 Physical Exam PHYSICAL EXAM GENERAL: Alert, oriented x 3 male, sitting in chair, in no acute distress. HEENT: Normocephalic, atraumatic, anicteric. No thrush. NECK: Supple, no JVD. LUNGS: Clear bilaterally. No wheezing. HEART: S1, S2. No gallops or murmurs. ABDOMEN: Distended. Bowel sounds present. Mildly tender in the left upper quadrant. No rebound, no guarding. EXTREMITIES: No edema, no cyanosis. DERMATOLOGIC: Warm, dry. No generalized rash. NEUROLOGIC: Alert and oriented x 3, grossly nonfocal. PSYCHIATRIC: Cooperative, appropriate mood and affect. DERMATOLOGIC: Warm and dry. No generalized rash. Chest wall, pacemaker site looks clean. Labs Lab Laboratory Tests Test 02/10/21 07:15 02/10/21 07:40 Sodium Level 145 mmol/L (136-145) Potassium Level 4.3 mmol/L (3.5-5.1) Chloride Level 107 mmol/L (98-107) Carbon Dioxide Level 29 mmol/L (21-32) Anion Gap 9 (6-14) Blood Urea Nitrogen 9 mg/dL (8-26) Creatinine 1.4 mg/dL (0.7-1.3) Estimated GFR (Cockcroft-Gault) 57.7 Glucose Level 117 mg/dL (70-99) Calcium Level 8.8 mg/dL (8.5-10.1) Magnesium Level 1.8 mg/dL (1.8-2.4) White Blood Count 3.7 x10^3/uL (4.0-11.0) Red Blood Count 4.09 x10^6/uL (4.30-5.70) Hemoglobin 12.6 g/dL (13.0-17.5) Hematocrit 38.1 % (39.0-53.0) Mean Corpuscular Volume 93 fL (79-100) Mean Corpuscular Hemoglobin 31 pg (25-35) Mean Corpuscular Hemoglobin Concent 33 g/dL (31-37) Red Cell Distribution Width 14.4 % (11.5-14.5) Platelet Count 176 x10^3/uL (140-400) Neutrophils (%) (Auto) 63 % (31-73) Lymphocytes (%) (Auto) 23 % (24-48) Monocytes (%) (Auto) 12 % (0-9) Eosinophils (%) (Auto) 2 % (0-3) Basophils (%) (Auto) 1 % (0-3) Neutrophils # (Auto) 2.3 x10^3/uL (1.8-7.7) Lymphocytes # (Auto) 0.8 x10^3/uL (1.0-4.8) Monocytes # (Auto) 0.4 x10^3/uL (0.0-1.1) Eosinophils # (Auto) 0.1 x10^3/uL (0.0-0.7) Basophils # (Auto) 0.0 x10^3/uL (0.0-0.2) Objective Assessment pt is stable. resolved sbo. must have sealed the air leak. ct reviewed and free air over liver and adjacent sb in rt abd. not too impressive for sbo on ct. interestingly no significant fluid see, no abscess. did have colon surgery in the past and has a large midline incision. i don't see any evidence of foreign body. plan- ok to increase to full liq diet. Plan Plan of Care 1. Continue Zosyn. 2. Follow up labs and cultures. 3. Continue supportive care. 4. GI team and General Surgery following. 5. Trend WBC Discussed with nursing staff. discussed with nurse camp with increase diet. Justifications for Admission Other Justification DK GOMES MD Feb 10, 2021 12:00
[2021-02-10] MEDS: hydrALAZINE 25 MG TABLET PO SCH ×2 (12:17→20:43)
[2021-02-10] MEDS: GABAPENTIN 300 MG CAPSULE. PO SCH ×2 (12:17→20:42)
[2021-02-10] MEDS: ISOSORBIDE DINITRATE 10 MG TABLET. PO SCH ×2 (12:18→20:43)
[2021-02-10 15:00] VITALS: BP 122/70
[2021-02-10 17:24] LABS: BASO % 1 % (0-3); EOS # 0.1 x10^3/uL (0.0-0.7); EOS % 2 % (0-3); HEMOGLOBIN 11.7 g/dL (13.0-17.5); LYMPH # 0.9 x10^3/uL (1.0-4.8); LYMPH % 26 % (24-48); MEAN CORPUSCULAR HEMOGLOBIN 31 pg (25-35); MEAN CORPUSCULAR HGB CONC 34 g/dL (31-37); MEAN CORPUSCULAR VOLUME 93 fL (79-100); MONO # 0.7 x10^3/uL (0.0-1.1); MONO % 18 % (0-9); NEUT # 1.9 x10^3/uL (1.8-7.7); NEUT % 53 % (31-73); PLATELET COUNT 157 x10^3/uL (140-400); RED BLOOD COUNT 3.78 x10^6/uL (4.30-5.70); RED CELL DISTRIBUTION WIDTH 14.9 % (11.5-14.5); WHITE BLOOD COUNT 3.6 x10^3/uL (4.0-11.0)
[2021-02-10] MEDS ORDERED: IOHEXOL 300 MG/ML 100ML VIAL. IV ONE (17:45)
[2021-02-10] MEDS ORDERED: CONTRAST GIVEN. MC PRN (17:45)
--- NOTE | 2021-02-10 18:14 | RAD ---
CT abdomen and pelvis with contrast PQRS statement: CT scans at this facility use dose reduction including either automated exposure cont rol, iterative reconstructions, and /or weight based radiation dosing via mA and kV modification when appropriate to reduce radiation dose to as low as reasonably achievable. HISTORY: Lower abdominal pain. Contrast: 60 mL Omnipaque 300 intravenous contrast. COMPARISON: CT abdomen and pelvis 02/07/2021. Abdomen findings: Cardiac pacemaker. Lung bases unremarkable. Mild lumbar scoliosis, facet spurring a nd mild disc height loss and disc bulges. Cholecystectomy. Calcified granulomas liver and spleen. Hernández creas is mildly atrophic. Adrenal glands are unremarkable. Numerous renal lesions with densities of 2 0 units or less are stable back to 2016 consistent with cysts. Mild distention of mid to lower abdomi nal small bowel loops similar the prior exam, there is mild distortion of the mid abdominal small bow el mesentery however there is no closed loop obstruction to confirm volvulus, this may be an incident al transient finding related to bowel motion during the exam, a developing low-grade small bowel obst ruction due to an adhesion is possible, there is some angulation of the terminal ileum which could re present a site of adhesion. Maximum small bowel diameter 4 cm. There is contrast within the large bow el from the prior study. Appendix not visualized could be surgically absent or obscured by surroundin g bowel loops. Aortoiliac artery calcified plaque. No abdominal fluid or adenopathy. The pneumoperito neum on the prior study has since resolved there is a 2 x 1 cm supraumbilical ventral abdominal wall fatty hernia containing some mild residual air. No inflammatory changes in GI tract evident. The exte nt of pneumatosis of the bowel has decreased since the prior exam. No abdominal fluid. No adenopathy. Pelvis findings: Bilateral hip arthroplasties. Bladder, prostate, rectum unremarkable. IMPRESSION: 1. The bowel pneumatosis and pneumoperitoneum has considerably decreased and has nearly completely re solved. There is distention of the small bowel which persists, this could represent some resolving il eus from prior ischemic injury. A developing small bowel obstruction due to an adhesion at the right lower quadrant abdomen is also possible given some distortion of the bowel loops and mesentery at thi s region. 2. Other stable findings as described above. Electronically signed by: Tay Otoole MD (02/10/2021 6:11 PM) [id number]
[2021-02-10 18:26] LABS: % EOS 2 % (0-5); % LYMPHS 27 % (24-48); % MONOS 15 % (0-10); % SEGS 56 % (35-66); PLT ESTIMATE ADEQUATE (ADEQUATE)
--- NOTE | 2021-02-10 18:33 | PDOC ---
Progress Note Subjective Subjective Patient feels better Abdominal pain is improving had bm this am had hallucinations last night Denies fever, nausea, vomiting, shortness of breath, diarrhea,, rash on clear liquids No acute issues per RN 02/10 pt contunue to have no abd pain. tolerated tenzin clear. had bm this am. apparently had pain initially 3 weeks ago lasing on day, then recyrred 2 weeks later. 02/10 6:21pm. pt developed pain after full liq. got tylenol and took a nap. woke up with 10/10 pain lower abd, crampy in nature. apparently ate all his lunch. ordered stat cbc, ct. also lactic acid. ROS ROS no n/v. passed gas nervous. Vital Sign Vital Signs Vital Signs Date Time Temp Pulse Resp B/P (MAP) Pulse Ox O2 Delivery O2 Flow Rate FiO2 02/10/21 15:00 97.3 60 19 122/70 (87) 95 Room Air 97.3 02/09/21 21:40 2.0 Physical Exam PHYSICAL EXAM GENERAL: Alert, oriented x 3. no distress ABD: mod distended. nontender, good bs. no guardung or rigidity. Labs Lab Laboratory Tests Test 02/10/21 07:15 02/10/21 07:40 02/10/21 17:10 Sodium Level 145 mmol/L (136-145) Potassium Level 4.3 mmol/L (3.5-5.1) Chloride Level 107 mmol/L (98-107) Carbon Dioxide Level 29 mmol/L (21-32) Anion Gap 9 (6-14) Blood Urea Nitrogen 9 mg/dL (8-26) Creatinine 1.4 mg/dL (0.7-1.3) Estimated GFR (Cockcroft-Gault) 57.7 Glucose Level 117 mg/dL (70-99) Calcium Level 8.8 mg/dL (8.5-10.1) Magnesium Level 1.8 mg/dL (1.8-2.4) White Blood Count 3.7 x10^3/uL (4.0-11.0) 3.6 x10^3/uL (4.0-11.0) Red Blood Count 4.09 x10^6/uL (4.30-5.70) 3.78 x10^6/uL (4.30-5.70) Hemoglobin 12.6 g/dL (13.0-17.5) 11.7 g/dL (13.0-17.5) Hematocrit 38.1 % (39.0-53.0) 35.0 % (39.0-53.0) Mean Corpuscular Volume 93 fL (79-100) 93 fL (79-100) Mean Corpuscular Hemoglobin 31 pg (25-35) 31 pg (25-35) Mean Corpuscular Hemoglobin Concent 33 g/dL (31-37) 34 g/dL (31-37) Red Cell Distribution Width 14.4 % (11.5-14.5) 14.9 % (11.5-14.5) Platelet Count 176 x10^3/uL (140-400) 157 x10^3/uL (140-400) Neutrophils (%) (Auto) 63 % (31-73) 53 % (31-73) Lymphocytes (%) (Auto) 23 % (24-48) 26 % (24-48) Monocytes (%) (Auto) 12 % (0-9) 18 % (0-9) Eosinophils (%) (Auto) 2 % (0-3) 2 % (0-3) Basophils (%) (Auto) 1 % (0-3) 1 % (0-3) Neutrophils # (Auto) 2.3 x10^3/uL (1.8-7.7) 1.9 x10^3/uL (1.8-7.7) Lymphocytes # (Auto) 0.8 x10^3/uL (1.0-4.8) 0.9 x10^3/uL (1.0-4.8) Monocytes # (Auto) 0.4 x10^3/uL (0.0-1.1) 0.7 x10^3/uL (0.0-1.1) Eosinophils # (Auto) 0.1 x10^3/uL (0.0-0.7) 0.1 x10^3/uL (0.0-0.7) Basophils # (Auto) 0.0 x10^3/uL (0.0-0.2) 0.0 x10^3/uL (0.0-0.2) Objective Assessment pt is stable. resolved sbo. must have sealed the air leak. ct reviewed and free air over liver and adjacent sb in rt abd. not too impressive for sbo on ct. interestingly no significant fluid see, no abscess. did have colon surgery in the past and has a large midline incision. i don't see any evidence of foreign body. plan- ok to increase to full liq diet. 02/10 6:27pm- came back to reassess pt. developed pain after full liq lunch. apparently ate everything. new cbc stable. lactic acid pending. ct reviewed. report pending. the free air has almost completely resolve. there is a residual small pocket RLQ. there is more sb distention. likely partial sbo. he apparently has a prior episode of partial sbo 2012. tx with ng tube. colon resection ?2005. likely adhesive etiology. no acute abd clinically. no vomiting and stomach not very big. will hold off on ng tube. he may still need surgery if sbo does not resolve. pt understands. nurse to call me with ct report. Plan Plan of Care 1. Continue Zosyn. 2. Follow up labs and cultures. 3. Continue supportive care. 4. GI team and General Surgery following. 5. Trend WBC Discussed with nursing staff. discussed with nurse camp with increase diet. Justifications for Admission Other Justification DK GOMES MD Feb 10, 2021 18:33
[2021-02-10 19:20] VITALS: BP 150/71
[2021-02-10] MEDS: HYDROcodone/APAP 5/325MG 1 TAB TABLET PO PRN (19:59)
[2021-02-10] MEDS: traZODone 50 MG TABLET. PO SCH (20:44)
[2021-02-10 23:05] VITALS: BP 120/53
[2021-02-11] VITALS (7 sets, daily range): BP systolic 125–177; BP diastolic 61–85
[2021-02-11] MEDS: POTASSIUM CL 20MEQ D5-0.45NACL 1,000 ML IV SCH ×2 (00:04→14:01)
[2021-02-11] MEDS: PIPERACILLIN/TAZOBACTAM 3.375 GM in IV NORMAL SALINE 50ML 50 ML IV SCH ×4 (00:07→18:22)
[2021-02-11] MEDS: ASPIRIN ENTERIC COATED 81 MG TABLET.DR. PO SCH (08:00)
[2021-02-11] MEDS: POTASSIUM CHLORIDE 20 MEQ TABLET.ER. PO SCH (08:00)
--- NOTE | 2021-02-11 08:09 | RAD ---
XR ABDOMEN COMP ACUTE History: Reason: lower abd pain / Spl. Instructions: / History: Technique: Upright and supine views of the abdomen. Comparison: February 09, 2021 Findings: No consolidation or pleural effusion. Normal heart size. No pneumothorax. Stable left-sided pacemaker . No pneumoperitoneum. Dilated air-filled loops of small bowel throughout the abdomen, unchanged. Potentially decreased pneu matosis. Air and stool throughout the colon. Bilateral hip arthroplasties. Multilevel lumbar spondylo sis. Impression: 1. Persistent dilated small bowel throughout the abdomen. 2. Decreased pneumatosis. Electronically signed by: Giovani Chavis DO (02/11/2021 8:06 AM) [facility]
[2021-02-11 08:43] LABS: BASO % 1 % (0-3); EOS # 0.1 x10^3/uL (0.0-0.7); EOS % 2 % (0-3); HEMOGLOBIN 11.7 g/dL (13.0-17.5); LYMPH # 0.8 x10^3/uL (1.0-4.8); LYMPH % 27 % (24-48); MEAN CORPUSCULAR HEMOGLOBIN 31 pg (25-35); MEAN CORPUSCULAR HGB CONC 33 g/dL (31-37); MEAN CORPUSCULAR VOLUME 93 fL (79-100); MONO # 0.5 x10^3/uL (0.0-1.1); MONO % 18 % (0-9); NEUT # 1.5 x10^3/uL (1.8-7.7); NEUT % 52 % (31-73); PLATELET COUNT 153 x10^3/uL (140-400); RED BLOOD COUNT 3.76 x10^6/uL (4.30-5.70); RED CELL DISTRIBUTION WIDTH 14.9 % (11.5-14.5); WHITE BLOOD COUNT 2.9 x10^3/uL (4.0-11.0)
[2021-02-11 08:51] LABS: CALCIUM 8.4 mg/dL (8.5-10.1); CREATININE 1.4 mg/dL (0.7-1.3); GFR 57.7; MAGNESIUM 1.9 mg/dL (1.8-2.4); POTASSIUM 3.9 mmol/L (3.5-5.1)
--- NOTE | 2021-02-11 08:59 | PDOC ---
Infectious Disease Note Subjective: Subjective Patient had abdominal pain yesterday after having clear liquids Currently n.p.o. Had a bowel movement this morning Abdominal pain is improving No further hallucination Denies fever, nausea, vomiting, shortness of breath, diarrhea,, rash No acute issues per RN Vital Signs: Vital Signs Vital Signs Date Time Temp Pulse Resp B/P (MAP) Pulse Ox O2 Delivery O2 Flow Rate FiO2 02/11/21 07:00 98.4 60 18 133/74 (93) 93 Room Air 98.4 Physical Exam: PHYSICAL EXAM GENERAL: Alert, oriented x 3 male, sitting in chair, in no acute distress. HEENT: Normocephalic, atraumatic, anicteric. No thrush. NECK: Supple, no JVD. LUNGS: Clear bilaterally. No wheezing. HEART: S1, S2. No gallops or murmurs. ABDOMEN: Distended. Bowel sounds present. Mildly tender in the upper quadrant. No rebound, no guarding. EXTREMITIES: No edema, no cyanosis. DERMATOLOGIC: Warm, dry. No generalized rash. NEUROLOGIC: Alert and oriented x 3, grossly nonfocal. PSYCHIATRIC: Cooperative, appropriate mood and affect. DERMATOLOGIC: Warm and dry. No generalized rash. Chest wall, pacemaker site looks clean. Medications: Inpatient Meds: Medications reviewed. Labs: Lab Laboratory Tests Test 02/10/21 17:10 02/10/21 19:05 02/11/21 07:25 White Blood Count 3.6 x10^3/uL (4.0-11.0) 2.9 x10^3/uL (4.0-11.0) Red Blood Count 3.78 x10^6/uL (4.30-5.70) 3.76 x10^6/uL (4.30-5.70) Hemoglobin 11.7 g/dL (13.0-17.5) 11.7 g/dL (13.0-17.5) Hematocrit 35.0 % (39.0-53.0) 35.0 % (39.0-53.0) Mean Corpuscular Volume 93 fL (79-100) 93 fL (79-100) Mean Corpuscular Hemoglobin 31 pg (25-35) 31 pg (25-35) Mean Corpuscular Hemoglobin Concent 34 g/dL (31-37) 33 g/dL (31-37) Red Cell Distribution Width 14.9 % (11.5-14.5) 14.9 % (11.5-14.5) Platelet Count 157 x10^3/uL (140-400) 153 x10^3/uL (140-400) Neutrophils (%) (Auto) 53 % (31-73) 52 % (31-73) Lymphocytes (%) (Auto) 26 % (24-48) 27 % (24-48) Monocytes (%) (Auto) 18 % (0-9) 18 % (0-9) Eosinophils (%) (Auto) 2 % (0-3) 2 % (0-3) Basophils (%) (Auto) 1 % (0-3) 1 % (0-3) Neutrophils # (Auto) 1.9 x10^3/uL (1.8-7.7) 1.5 x10^3/uL (1.8-7.7) Lymphocytes # (Auto) 0.9 x10^3/uL (1.0-4.8) 0.8 x10^3/uL (1.0-4.8) Monocytes # (Auto) 0.7 x10^3/uL (0.0-1.1) 0.5 x10^3/uL (0.0-1.1) Eosinophils # (Auto) 0.1 x10^3/uL (0.0-0.7) 0.1 x10^3/uL (0.0-0.7) Basophils # (Auto) 0.0 x10^3/uL (0.0-0.2) 0.0 x10^3/uL (0.0-0.2) Segmented Neutrophils % 56 % (35-66) Lymphocytes % 27 % (24-48) Monocytes % 15 % (0-10) Eosinophils % 2 % (0-5) Platelet Estimate Adequate (ADEQUATE) Lactic Acid Level 0.9 mmol/L (0.4-2.0) 0.9 mmol/L (0.4-2.0) Sodium Level 147 mmol/L (136-145) Potassium Level 3.9 mmol/L (3.5-5.1) Chloride Level 109 mmol/L (98-107) Carbon Dioxide Level 29 mmol/L (21-32) Anion Gap 9 (6-14) Blood Urea Nitrogen 9 mg/dL (8-26) Creatinine 1.4 mg/dL (0.7-1.3) Estimated GFR (Cockcroft-Gault) 57.7 Glucose Level 100 mg/dL (70-99) Calcium Level 8.4 mg/dL (8.5-10.1) Magnesium Level 1.9 mg/dL (1.8-2.4) Objective: Assessment: 1. Abdominal pain. 2. Small bowel obstruction 3. Pneumatosis intestinalis 4. Coronary artery disease. 5. Hypertension/hyperlipidemia. 6. Paroxysmal atrial fibrillation. 7. Status post permanent pacemaker. 8. Acute kidney injury, improved. 9. Leukopenia.etiology ? , 10. History of colon cancer, status post resection. 11. History of prostate cancer. 12. Status post cholecystectomy. Plan: Plan of Care Continue Zosyn Trend WBC Maintain aspiration precautions General surgery following Repeat labs in a.m. Monitor labs and cultures Continue supportive care Discussed with YING ENGLE MD Feb 11, 2021 08:59
[2021-02-11] MEDS: SOTALOL 80 MG TABLET. PO SCH ×2 (09:00→21:33)
[2021-02-11] MEDS: LOSARTAN POTASSIUM 50 MG TABLET. PO SCH (09:00)
[2021-02-11] MEDS: LACTOBACILLUS RHAMNOSUS GG 1 CAPSULE. PO SCH ×2 (09:00→21:35)
[2021-02-11] MEDS: amLODIPine BESYLATE 10 MG TABLET PO SCH (09:00)
[2021-02-11] MEDS: EZETIMIBE 10 MG TABLET. PO SCH (09:00)
[2021-02-11] MEDS: hydrALAZINE 25 MG TABLET PO SCH ×3 (09:00→21:34)
[2021-02-11] MEDS: GABAPENTIN 300 MG CAPSULE. PO SCH ×3 (09:00→21:33)
[2021-02-11] MEDS: MULTIVITAMIN with MINERAL TABLET. PO SCH (09:00)
[2021-02-11] MEDS: FUROSEMIDE 20 MG TABLET PO SCH (09:00)
[2021-02-11] MEDS: FAMOTIDINE 20 MG TABLET. PO SCH (09:00)
[2021-02-11] MEDS: ISOSORBIDE DINITRATE 10 MG TABLET. PO SCH ×3 (09:00→21:35)
[2021-02-11] MEDS: ENOXAPARIN 40 MG/0.4 ML SYRINGE. SQ SCH (10:30)
--- NOTE | 2021-02-11 10:44 | RAD ---
XR ABDOMEN COMP ACUTE History: Reason: pneumatosis intestinalis follow up / Spl. Instructions: / History: Technique: Supine and upright views of the abdomen. Comparison: CT February 10, 2021] radiograph. Findings: No consolidation or pleural effusion. Normal heart size. No pneumothorax. Left-sided pacemaker. No pn eumoperitoneum. Dilated air-filled loops of small bowel throughout the abdomen, mildly decreased comp ared to prior. Air and stool throughout the colon. Contrast noted within the rectum. Bilateral hip ar throplasties. Multilevel lumbar spondylosis. Surgical clips projecting of the right upper quadrant an d pelvis. No definite pneumatosis on radiographs. Impression: 1. Mildly dilated air-filled loops of small bowel throughout the abdomen, decreased compared to prio r. Electronically signed by: Giovani Chavis DO (02/11/2021 10:41 AM) [facility]
--- NOTE | 2021-02-11 11:14 | PDOC ---
PROGRESS NOTES Date of Service DATE: 02/11/21 TIME: 11:05 Subjective Subjective had severe mid abdominal pain 2.5 hours after eating full liquids. ct scan of abdomen and pelvis showed near resolution of intestinal pneumatosis but showed dilated loops of small bowel. made NPO and on iv fluids. feels better today wi thout abdominal pain and had a BM. lab reviewed. Objective Objective Vital Signs Date Time Temp Pulse Resp B/P (MAP) Pulse Ox O2 Delivery O2 Flow Rate FiO2 02/11/21 09:00 60 133/74 02/11/21 07:35 Room Air 02/11/21 07:00 98.4 18 93 98.4 02/09/21 21:40 2.0 Intake and Output 02/11/21 07:00 Intake Total 1316 ml Output Total 500 ml Balance 816 ml Intake Oral 270 ml IV Total 1046 ml Output Urine Total 500 ml # Bowel Movements 3 Physical Exam Abdomen: Normal bowel sounds, Soft, No tenderness, Other (obese) Heart: Regular rate, Normal S1, Normal S2 Extremities: No edema General: Alert HEENT: Atraumatic Lungs: Clear to auscultation Neuro: Normal speech Psych/Mental Status: Mental status NL Skin: No rashes Assessment Assessment Problems suspect either a partial SBO vs ileus due to 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 Labs Laboratory Tests Test 02/10/21 07:15 02/10/21 07:40 02/10/21 17:10 02/10/21 19:05 Sodium Level 145 mmol/L (136-145) Potassium Level 4.3 mmol/L (3.5-5.1) Chloride Level 107 mmol/L (98-107) Carbon Dioxide Level 29 mmol/L (21-32) Anion Gap 9 (6-14) Blood Urea Nitrogen 9 mg/dL (8-26) Creatinine 1.4 mg/dL (0.7-1.3) Estimated GFR (Cockcroft-Gault) 57.7 Glucose Level 117 mg/dL (70-99) Calcium Level 8.8 mg/dL (8.5-10.1) Magnesium Level 1.8 mg/dL (1.8-2.4) White Blood Count 3.7 x10^3/uL (4.0-11.0) 3.6 x10^3/uL (4.0-11.0) Red Blood Count 4.09 x10^6/uL (4.30-5.70) 3.78 x10^6/uL (4.30-5.70) Hemoglobin 12.6 g/dL (13.0-17.5) 11.7 g/dL (13.0-17.5) Hematocrit 38.1 % (39.0-53.0) 35.0 % (39.0-53.0) Mean Corpuscular Volume 93 fL (79-100) 93 fL (79-100) Mean Corpuscular Hemoglobin 31 pg (25-35) 31 pg (25-35) Mean Corpuscular Hemoglobin Concent 33 g/dL (31-37) 34 g/dL (31-37) Red Cell Distribution Width 14.4 % (11.5-14.5) 14.9 % (11.5-14.5) Platelet Count 176 x10^3/uL (140-400) 157 x10^3/uL (140-400) Neutrophils (%) (Auto) 63 % (31-73) 53 % (31-73) Lymphocytes (%) (Auto) 23 % (24-48) 26 % (24-48) Monocytes (%) (Auto) 12 % (0-9) 18 % (0-9) Eosinophils (%) (Auto) 2 % (0-3) 2 % (0-3) Basophils (%) (Auto) 1 % (0-3) 1 % (0-3) Neutrophils # (Auto) 2.3 x10^3/uL (1.8-7.7) 1.9 x10^3/uL (1.8-7.7) Lymphocytes # (Auto) 0.8 x10^3/uL (1.0-4.8) 0.9 x10^3/uL (1.0-4.8) Monocytes # (Auto) 0.4 x10^3/uL (0.0-1.1) 0.7 x10^3/uL (0.0-1.1) Eosinophils # (Auto) 0.1 x10^3/uL (0.0-0.7) 0.1 x10^3/uL (0.0-0.7) Basophils # (Auto) 0.0 x10^3/uL (0.0-0.2) 0.0 x10^3/uL (0.0-0.2) Segmented Neutrophils % 56 % (35-66) Lymphocytes % 27 % (24-48) Monocytes % 15 % (0-10) Eosinophils % 2 % (0-5) Platelet Estimate Adequate (ADEQUATE) Lactic Acid Level 0.9 mmol/L (0.4-2.0) Test 02/11/21 07:25 White Blood Count 2.9 x10^3/uL (4.0-11.0) Red Blood Count 3.76 x10^6/uL (4.30-5.70) Hemoglobin 11.7 g/dL (13.0-17.5) Hematocrit 35.0 % (39.0-53.0) Mean Corpuscular Volume 93 fL (79-100) Mean Corpuscular Hemoglobin 31 pg (25-35) Mean Corpuscular Hemoglobin Concent 33 g/dL (31-37) Red Cell Distribution Width 14.9 % (11.5-14.5) Platelet Count 153 x10^3/uL (140-400) Neutrophils (%) (Auto) 52 % (31-73) Lymphocytes (%) (Auto) 27 % (24-48) Monocytes (%) (Auto) 18 % (0-9) Eosinophils (%) (Auto) 2 % (0-3) Basophils (%) (Auto) 1 % (0-3) Neutrophils # (Auto) 1.5 x10^3/uL (1.8-7.7) Lymphocytes # (Auto) 0.8 x10^3/uL (1.0-4.8) Monocytes # (Auto) 0.5 x10^3/uL (0.0-1.1) Eosinophils # (Auto) 0.1 x10^3/uL (0.0-0.7) Basophils # (Auto) 0.0 x10^3/uL (0.0-0.2) Sodium Level 147 mmol/L (136-145) Potassium Level 3.9 mmol/L (3.5-5.1) Chloride Level 109 mmol/L (98-107) Carbon Dioxide Level 29 mmol/L (21-32) Anion Gap 9 (6-14) Blood Urea Nitrogen 9 mg/dL (8-26) Creatinine 1.4 mg/dL (0.7-1.3) Estimated GFR (Cockcroft-Gault) 57.7 Glucose Level 100 mg/dL (70-99) Lactic Acid Level 0.9 mmol/L (0.4-2.0) Calcium Level 8.4 mg/dL (8.5-10.1) Magnesium Level 1.9 mg/dL (1.8-2.4) Laboratory Tests Test 02/10/21 17:10 02/10/21 19:05 02/11/21 07:25 White Blood Count 3.6 x10^3/uL (4.0-11.0) 2.9 x10^3/uL (4.0-11.0) Red Blood Count 3.78 x10^6/uL (4.30-5.70) 3.76 x10^6/uL (4.30-5.70) Hemoglobin 11.7 g/dL (13.0-17.5) 11.7 g/dL (13.0-17.5) Hematocrit 35.0 % (39.0-53.0) 35.0 % (39.0-53.0) Mean Corpuscular Volume 93 fL (79-100) 93 fL (79-100) Mean Corpuscular Hemoglobin 31 pg (25-35) 31 pg (25-35) Mean Corpuscular Hemoglobin Concent 34 g/dL (31-37) 33 g/dL (31-37) Red Cell Distribution Width 14.9 % (11.5-14.5) 14.9 % (11.5-14.5) Platelet Count 157 x10^3/uL (140-400) 153 x10^3/uL (140-400) Neutrophils (%) (Auto) 53 % (31-73) 52 % (31-73) Lymphocytes (%) (Auto) 26 % (24-48) 27 % (24-48) Monocytes (%) (Auto) 18 % (0-9) 18 % (0-9) Eosinophils (%) (Auto) 2 % (0-3) 2 % (0-3) Basophils (%) (Auto) 1 % (0-3) 1 % (0-3) Neutrophils # (Auto) 1.9 x10^3/uL (1.8-7.7) 1.5 x10^3/uL (1.8-7.7) Lymphocytes # (Auto) 0.9 x10^3/uL (1.0-4.8) 0.8 x10^3/uL (1.0-4.8) Monocytes # (Auto) 0.7 x10^3/uL (0.0-1.1) 0.5 x10^3/uL (0.0-1.1) Eosinophils # (Auto) 0.1 x10^3/uL (0.0-0.7) 0.1 x10^3/uL (0.0-0.7) Basophils # (Auto) 0.0 x10^3/uL (0.0-0.2) 0.0 x10^3/uL (0.0-0.2) Segmented Neutrophils % 56 % (35-66) Lymphocytes % 27 % (24-48) Monocytes % 15 % (0-10) Eosinophils % 2 % (0-5) Platelet Estimate Adequate (ADEQUATE) Lactic Acid Level 0.9 mmol/L (0.4-2.0) 0.9 mmol/L (0.4-2.0) Sodium Level 147 mmol/L (136-145) Potassium Level 3.9 mmol/L (3.5-5.1) Chloride Level 109 mmol/L (98-107) Carbon Dioxide Level 29 mmol/L (21-32) Anion Gap 9 (6-14) Blood Urea Nitrogen 9 mg/dL (8-26) Creatinine 1.4 mg/dL (0.7-1.3) Estimated GFR (Cockcroft-Gault) 57.7 Glucose Level 100 mg/dL (70-99) Calcium Level 8.4 mg/dL (8.5-10.1) Magnesium Level 1.9 mg/dL (1.8-2.4) Medications Current Medications Iohexol (Omnipaque 300 Mg/ml) 60 ml 1X ONCE IV ; Start 02/07/21 at 13:45; Stop 02/07/21 at 13:51; Status DC Info (CONTRAST GIVEN -- Rx MONITORING) 1 each PRN DAILY PRN MC SEE COMMENTS; Start 02/07/21 at 14:00; Stop 02/09/21 at 13:59; Status DC Piperacillin Sod/ Tazobactam Sod (Zosyn Per Pharmacy) 1 each PRN DAILY PRN MC SEE COMMENTS; Start 02/07/21 at 14:30 Piperacillin Sod/ Tazobactam Sod 2.25 gm/Sodium Chloride 50 ml @ 100 mls/hr 1X ONCE IV Last administered on 02/07/21at 15:59; Start 02/07/21 at 14:45; Stop 02/07/21 at 15:14; Status DC Ondansetron HCl (Zofran) 4 mg PRN Q8HRS PRN IV NAUSEA/VOMITING; Start 02/07/21 at 15:00; Stop 02/07/21 at 15:54; Status DC Morphine Sulfate (Morphine Sulfate) 4 mg PRN Q2HR PRN IV PAIN Last administered on 02/07/21at 18:17; Start 02/07/21 at 15:00; Stop 02/08/21 at 14:59; Status DC Sodium Chloride 1,000 ml @ 75 mls/hr [id number] IV Last administered on 02/07/21at 15:59; Start 02/07/21 at 15:00; Stop 02/08/21 at 14:59; Status DC Piperacillin Sod/ Tazobactam Sod 2.25 gm/Sodium Chloride 50 ml @ 100 mls/hr Q6HRS IV Last administered on 02/08/21at 05:08; Start 02/08/21 at 00:00; Stop 02/08/21 at 11:42; Status DC Potassium Chloride/Dextrose/ Sod Cl 1,000 ml @ 80 mls/hr [id number] IV Last administered on 02/11/21at 00:04; Start 02/07/21 at 15:45 Ondansetron HCl (Zofran) 4 mg PRN Q6HRS PRN IVP NAUSEA/VOMITING Last administered on 02/07/21at 18:17; Start 02/07/21 at 15:45 Famotidine (Pepcid Vial) 20 mg DAILY IVP Last administered on 02/09/21at 08:03; Start 02/07/21 at 18:00; Stop 02/09/21 at 09:38; Status DC Morphine Sulfate (Morphine Sulfate) 2 mg PRN Q4HRS PRN IV PAIN Last administered on 02/08/21at 22:16; Start 02/07/21 at 15:45; Stop 02/09/21 at 09:38; Status DC Acetaminophen (Tylenol Supp) 650 mg PRN Q6HRS PRN MA MILD PAIN / TEMP > 100.3'F; Start 02/07/21 at 15:45; Stop 02/09/21 at 09:38; Status DC Hydralazine HCl (Apresoline Inj) 10 mg PRN Q4HRS PRN IVP ELEVATED BP, SEE COMMENTS; Start 02/07/21 at 15:45 Nitroglycerin (Nitro-Dur) 1 patch DAILY TD Last administered on 02/09/21at 08:04; Start 02/08/21 at 09:00; Stop 02/09/21 at 09:38; Status DC Enoxaparin Sodium (Lovenox 40mg Syringe) 40 mg Q24H SQ Last administered on at 10:30; Start 02/08/21 at 09:00 Metoprolol Tartrate (Lopressor Vial) 5 mg Q6HRS IVP ; Start 02/08/21 at 10:00; Stop 02/08/21 at 10:09; Status DC Metoprolol Tartrate (Lopressor Vial) 2.5 mg Q6HRS IVP Last administered on 02/09/21at 05:14; Start 02/08/21 at 12:00; Stop 02/09/21 at 09:38; Status DC Piperacillin Sod/ Tazobactam Sod 3.375 gm/Sodium Chloride 50 ml @ 100 mls/hr Q6HRS IV Last administered on 02/11/21at 05:55; Start 02/08/21 at 12:00 Acetaminophen (Tylenol) 650 mg PRN Q6HRS PRN PO MILD PAIN / TEMP > 100.3'F Last administered on 02/10/21at 13:34; Start 02/09/21 at 09:30 Famotidine (Pepcid) 20 mg DAILY PO ; Start 02/09/21 at 10:00 Acetaminophen/ Hydrocodone Bitart (Lortab 5/325) 1 tab PRN Q4HRS PRN PO MODERATE TO SEVERE PAIN Last administered on 02/10/21 19:59; Start 02/09/21 at 09:30 Fentanyl Citrate (Fentanyl 2ml Vial) 25 mcg PRN Q4HRS PRN IVP MODERATE PAIN Last administered on 02/10/21 16:37; Start 02/09/21 at 09:30 Amlodipine Besylate (Norvasc) 10 mg DAILY PO Last administered on 02/10/21 07:56; Start 02/09/21 at 10:00 Furosemide (Lasix) 20 mg DAILY PO Last administered on 02/10/21 07:56; Start 02/09/21 at 10:00 Potassium Chloride (Klor-Con) 20 meq DAILYWBKFT PO Last administered on 02/10/21 07:56; Start 02/09/21 at 10:00 EZETIMIBE (Zetia) 10 mg DAILY PO Last administered on 02/10/21 07:59; Start 02/09/21 at 10:00 Nitroglycerin (Nitrostat) 0.4 mg PRN Q5MIN PRN SL CHEST PAIN; Start 02/09/21 at 09:30 Losartan Potassium (Cozaar) 100 mg DAILY PO Last administered on 02/10/21 07:5 9; Start 02/09/21 at 10:00 Multivitamins (Thera M Plus) 1 tab DAILY PO Last administered on 02/10/21at 07:57; Start 02/09/21 at 10:00 Aspirin (Misty Aspirin) 81 mg DAILYWBKFT PO Last administered on 02/09/21at 12:18; Start 02/09/21 at 12:00; Stop 02/10/21 at 08:57; Status DC Sotalol HCl (Betapace) 80 mg BID PO Last administered on 02/10/21 20:43; Start 02/09/21 at 10:00 Lactobacillus Rhamnosus (Culturelle) 1 cap BID PO Last administered on 02/10/21at 20:44; Start 02/09/21 at 21:00 Docusate Sodium (Colace) 100 mg PRN BID PRN PO HARD STOOLS; Start 02/09/21 at 13:30 Aspirin (Aspirin Chewable) 81 mg STK-MED ONCE .ROUTE ; Start 02/10/21 at 07:53; Stop 02/10/21 at 07:53; Status DC Aspirin (Ecotrin) 81 mg DAILYWBKFT PO ; Start 02/11/21 at 08:00 Hydralazine HCl (Apresoline) 25 mg TID PO Last administered on 02/10/21at 20:43; Start 02/10/21 at 12:00 Isosorbide Dinitrate (Isordil) 20 mg TID PO Last administered on 02/10/21at 20:43; Start 02/10/21 at 12:00 Gabapentin (Neurontin) 300 mg TID PO Last administered on 02/10/21at 20:42; Start 02/10/21 at 12:00 Trazodone HCl (Desyrel) 50 mg QHS PO Last administered on 02/10/21at 20:44; Start 02/10/21 at 21:00 Iohexol (Omnipaque 300 Mg/ml) 60 ml 1X ONCE IV ; Start 02/10/21 at 17:45; Stop 02/10/21 at 17:46; Status DC Info (CONTRAST GIVEN -- Rx MONITORING) 1 each PRN DAILY PRN MC SEE COMMENTS; Start 02/10/21 at 17:45; Stop 02/12/21 at 17:44 Active Scripts Active Betapace (Sotalol Hcl) 80 Mg Tablet 80 Mg PO BID Ezetimibe 10 Mg Tablet 10 Mg PO DAILY Reported Isosorbide Dinitrate 40 Mg Tablet.er 20 Mg PO TID Furosemide 20 Mg Tablet 20 Mg PO DAILY Docusate Sodium 100 Mg Capsule 1 Cap PO DAILY PRN Gabapentin 600 Mg Tablet 600 Mg PO TID Hydralazine Hcl 25 Mg Tablet 1 Tab PO TID Eliquis (Apixaban) 5 Mg Tablet 5 Mg PO BID Amlodipine Besylate 10 Mg Tablet 10 Mg PO DAILY Aspir 81 (Aspirin) 81 Mg Tablet. 1 Tab PO DAILY Potassium Chloride (Potassium Chloride) 20 Meq Tablet.er 20 Meq PO DAILY Multi Vitamin Daily (Multivitamin) 1 Each Tablet 1 Each PO DAILY Losartan Potassium 100 Mg Tablet 100 Mg PO DAILY Vitals/I & O Vital Sign - Last 24 Hours 02/10/21 02/10/21 02/10/21 02/10/21 11:31 12:17 12:18 15:00 Temp 97.3 97.3 97.3 97.3 Pulse 60 60 60 60 Resp 19 19 B/P (MAP) 170/84 (112) 170/84 170/84 122/70 (87) Pulse Ox 95 95 O2 Delivery Room Air Room Air 02/10/21 02/10/21 02/10/21 02/10/21 19:20 19:59 20:00 20:43 Temp 97.5 97.5 Pulse 60 60 Resp 18 B/P (MAP) 150/71 (97) 150/71 Pulse Ox 95 95 O2 Delivery Room Air Room Air Room Air 02/10/21 02/10/21 02/10/21 02/10/21 20:43 20:43 20:59 23:05 Temp 98.8 98.8 Pulse 60 60 63 Resp 21 B/P (MAP) 150/71 150/71 120/53 (75) Pulse Ox 95 92 O2 Delivery Room Air Room Air 02/11/21 02/11/21 02/11/21 02/11/21 03:25 07:00 07:35 09:00 Temp 98.4 98.4 98.4 98.4 Pulse 62 60 60 Resp 18 18 B/P (MAP) 141/69 (93) 133/74 (93) 133/74 Pulse Ox 92 93 O2 Delivery Room Air Room Air Room Air 02/11/21 02/11/21 02/11/21 02/11/21 09:00 09:00 09:00 09:00 Pulse 60 60 60 60 B/P (MAP) 133/74 133/74 133/74 133/74 Intake and Output 02/10/21 02/10/21 02/11/21 15:00 23:00 07:00 Intake Total 120 ml 1196 ml Output Total 100 ml 400 ml Balance 120 ml -100 ml 796 ml Justifications for Admission Other Justification LAN DOWLING MD Feb 11, 2021 11:14
--- NOTE | 2021-02-11 12:45 | PDOC ---
Progress Note Current Problem List Problems: (1) Small bowel obstruction Subjective Subjective PAIN RESOLVED ABOUT 10 PM LAST NIGHT. SLEPT WELL. HAD A GOOD BM THIS AM AND ALSO PASSING GAS. ROS ROS No nausea No vomiting No pain No rash Vital Sign Vital Signs Vital Signs Date Time Temp Pulse Resp B/P (MAP) Pulse Ox O2 Delivery O2 Flow Rate FiO2 02/11/21 11:00 98.0 62 18 150/77 (101) 96 Room Air 98.0 Physical Exam PHYSICAL EXAM GENERAL: Alert, oriented x 3 male, sitting in chair, in no acute distress. ABD: OBESE, MOD DISTENDED, ACTIVE BS. NO MASS, NO GUARDING, NONTENDER. Labs Lab Laboratory Tests Test 02/10/21 17:10 02/10/21 19:05 02/11/21 07:25 White Blood Count 3.6 x10^3/uL (4.0-11.0) 2.9 x10^3/uL (4.0-11.0) Red Blood Count 3.78 x10^6/uL (4.30-5.70) 3.76 x10^6/uL (4.30-5.70) Hemoglobin 11.7 g/dL (13.0-17.5) 11.7 g/dL (13.0-17.5) Hematocrit 35.0 % (39.0-53.0) 35.0 % (39.0-53.0) Mean Corpuscular Volume 93 fL (79-100) 93 fL (79-100) Mean Corpuscular Hemoglobin 31 pg (25-35) 31 pg (25-35) Mean Corpuscular Hemoglobin Concent 34 g/dL (31-37) 33 g/dL (31-37) Red Cell Distribution Width 14.9 % (11.5-14.5) 14.9 % (11.5-14.5) Platelet Count 157 x10^3/uL (140-400) 153 x10^3/uL (140-400) Neutrophils (%) (Auto) 53 % (31-73) 52 % (31-73) Lymphocytes (%) (Auto) 26 % (24-48) 27 % (24-48) Monocytes (%) (Auto) 18 % (0-9) 18 % (0-9) Eosinophils (%) (Auto) 2 % (0-3) 2 % (0-3) Basophils (%) (Auto) 1 % (0-3) 1 % (0-3) Neutrophils # (Auto) 1.9 x10^3/uL (1.8-7.7) 1.5 x10^3/uL (1.8-7.7) Lymphocytes # (Auto) 0.9 x10^3/uL (1.0-4.8) 0.8 x10^3/uL (1.0-4.8) Monocytes # (Auto) 0.7 x10^3/uL (0.0-1.1) 0.5 x10^3/uL (0.0-1.1) Eosinophils # (Auto) 0.1 x10^3/uL (0.0-0.7) 0.1 x10^3/uL (0.0-0.7) Basophils # (Auto) 0.0 x10^3/uL (0.0-0.2) 0.0 x10^3/uL (0.0-0.2) Segmented Neutrophils % 56 % (35-66) Lymphocytes % 27 % (24-48) Monocytes % 15 % (0-10) Eosinophils % 2 % (0-5) Platelet Estimate Adequate (ADEQUATE) Lactic Acid Level 0.9 mmol/L (0.4-2.0) 0.9 mmol/L (0.4-2.0) Sodium Level 147 mmol/L (136-145) Potassium Level 3.9 mmol/L (3.5-5.1) Chloride Level 109 mmol/L (98-107) Carbon Dioxide Level 29 mmol/L (21-32) Anion Gap 9 (6-14) Blood Urea Nitrogen 9 mg/dL (8-26) Creatinine 1.4 mg/dL (0.7-1.3) Estimated GFR (Cockcroft-Gault) 57.7 Glucose Level 100 mg/dL (70-99) Calcium Level 8.4 mg/dL (8.5-10.1) Magnesium Level 1.9 mg/dL (1.8-2.4) Objective Assessment PATIENT IS A LOT BETTER THAN YESTERDAY AFTERNOON. ABD SERIES SHOW DECREASE BOWEL DILATATION. WILL TRY CLEAR LIQ AGAIN. LABS STABLE. Plan Plan of Care CLEAR LIQ. ABD SERIES IN AM Justifications for Admission Other Justification GOMES,PETER MD Feb 11, 2021 12:45
[2021-02-11] MEDS: traZODone 50 MG TABLET. PO SCH (21:34)
--- NOTE | 2021-02-11 23:48 | NUR ---
Patient transferred from [address] [place] [address] at 2315. Received report from Cami ÁLVAREZ. Patient alert and orient x 4. RN placed call light in patient's hand and instructed patient to call for assistance. Blood pressure 175/83. RN will continue to monitor.
[2021-02-12] MEDS: PIPERACILLIN/TAZOBACTAM 3.375 GM in IV NORMAL SALINE 50ML 50 ML IV SCH ×4 (00:21→18:16)
[2021-02-12 03:00] VITALS: BP 149/76
[2021-02-12 07:00] VITALS: BP 177/85
[2021-02-12 07:39] LABS: BASO % 1 % (0-3); EOS # 0.1 x10^3/uL (0.0-0.7); EOS % 4 % (0-3); HEMATOCRIT 35.6 % (39.0-53.0); HEMOGLOBIN 11.9 g/dL (13.0-17.5); LYMPH # 0.7 x10^3/uL (1.0-4.8); LYMPH % 24 % (24-48); MEAN CORPUSCULAR HEMOGLOBIN 31 pg (25-35); MEAN CORPUSCULAR HGB CONC 33 g/dL (31-37); MEAN CORPUSCULAR VOLUME 93 fL (79-100); MONO # 0.5 x10^3/uL (0.0-1.1); MONO % 18 % (0-9); NEUT # 1.6 x10^3/uL (1.8-7.7); NEUT % 53 % (31-73); PLATELET COUNT 157 x10^3/uL (140-400); RED BLOOD COUNT 3.81 x10^6/uL (4.30-5.70); RED CELL DISTRIBUTION WIDTH 14.8 % (11.5-14.5)
[2021-02-12 08:11] LABS: CALCIUM 8.3 mg/dL (8.5-10.1); CREATININE 1.3 mg/dL (0.7-1.3); GFR 62.9; POTASSIUM 4.1 mmol/L (3.5-5.1); TOTAL BILIRUBIN 0.4 mg/dL (0.2-1.0); TOTAL PROTEIN 6.1 g/dL (6.4-8.2)
[2021-02-12] MEDS: ASPIRIN ENTERIC COATED 81 MG TABLET.DR. PO SCH (08:56)
[2021-02-12] MEDS: LOSARTAN POTASSIUM 50 MG TABLET. PO SCH (08:56)
[2021-02-12] MEDS: EZETIMIBE 10 MG TABLET. PO SCH (08:56)
[2021-02-12] MEDS: FUROSEMIDE 20 MG TABLET PO SCH (08:57)
[2021-02-12] MEDS: POTASSIUM CHLORIDE 20 MEQ TABLET.ER. PO SCH (08:57)
[2021-02-12] MEDS: amLODIPine BESYLATE 10 MG TABLET PO SCH (08:57)
[2021-02-12] MEDS: LACTOBACILLUS RHAMNOSUS GG 1 CAPSULE. PO SCH ×2 (08:57→20:46)
[2021-02-12] MEDS: MULTIVITAMIN with MINERAL TABLET. PO SCH (08:57)
[2021-02-12] MEDS: FAMOTIDINE 20 MG TABLET. PO SCH (08:57)
[2021-02-12] MEDS: GABAPENTIN 300 MG CAPSULE. PO SCH ×3 (08:57→20:47)
[2021-02-12] MEDS: ISOSORBIDE DINITRATE 10 MG TABLET. PO SCH ×3 (08:57→20:47)
[2021-02-12] MEDS: hydrALAZINE 25 MG TABLET PO SCH (08:58)
[2021-02-12] MEDS: SOTALOL 80 MG TABLET. PO SCH ×2 (08:58→20:51)
[2021-02-12] MEDS: ENOXAPARIN 40 MG/0.4 ML SYRINGE. SQ SCH (08:59)
[2021-02-12] MEDS: POTASSIUM CL 20MEQ D5-0.45NACL 1,000 ML IV SCH ×2 (09:04→20:46)
--- NOTE | 2021-02-12 09:50 | PDOC ---
JONNY MORALES LISW 02/12/21 0950: SURGICAL PROGRESS NOTE DATE: 02/12/21 TIME: 09:49 Subjective much better multiple stools Vital Signs Vital Signs Date Time Temp Pulse Resp B/P (MAP) Pulse Ox O2 Delivery O2 Flow Rate FiO2 02/12/21 08:58 60 177/85 02/12/21 07:00 97.8 18 96 Nasal Cannula 3.0 97.8 I&O Intake and Output 02/12/21 07:00 Intake Total 0 ml Output Total 225 ml Balance -225 ml Intake Oral 0 ml Output Urine Total 225 ml # Voids 1 # Bowel Movements 1 General: Alert, Oriented X3, Cooperative Abdomen: Soft, No tenderness Labs Laboratory Tests Test 02/10/21 17:10 02/10/21 19:05 02/11/21 07:25 02/12/21 07:20 White Blood Count 3.6 x10^3/uL (4.0-11.0) 2.9 x10^3/uL (4.0-11.0) 3.0 x10^3/uL (4.0-11.0) Red Blood Count 3.78 x10^6/uL (4.30-5.70) 3.76 x10^6/uL (4.30-5.70) 3.81 x10^6/uL (4.30-5.70) Hemoglobin 11.7 g/dL (13.0-17.5) 11.7 g/dL (13.0-17.5) 11.9 g/dL (13.0-17.5) Hematocrit 35.0 % (39.0-53.0) 35.0 % (39.0-53.0) 35.6 % (39.0-53.0) Mean Corpuscular Volume 93 fL (79-100) 93 fL (79-100) 93 fL (79-100) Mean Corpuscular Hemoglobin 31 pg (25-35) 31 pg (25-35) 31 pg (25-35) Mean Corpuscular Hemoglobin Concent 34 g/dL (31-37) 33 g/dL (31-37) 33 g/dL (31-37) Red Cell Distribution Width 14.9 % (11.5-14.5) 14.9 % (11.5-14.5) 14.8 % (11.5-14.5) Platelet Count 157 x10^3/uL (140-400) 153 x10^3/uL (140-400) 157 x10^3/uL (140-400) Neutrophils (%) (Auto) 53 % (31-73) 52 % (31-73) 53 % (31-73) Lymphocytes (%) (Auto) 26 % (24-48) 27 % (24-48) 24 % (24-48) Monocytes (%) (Auto) 18 % (0-9) 18 % (0-9) 18 % (0-9) Eosinophils (%) (Auto) 2 % (0-3) 2 % (0-3) 4 % (0-3) Basophils (%) (Auto) 1 % (0-3) 1 % (0-3) 1 % (0-3) Neutrophils # (Auto) 1.9 x10^3/uL (1.8-7.7) 1.5 x10^3/uL (1.8-7.7) 1.6 x10^3/uL (1.8-7.7) Lymphocytes # (Auto) 0.9 x10^3/uL (1.0-4.8) 0.8 x10^3/uL (1.0-4.8) 0.7 x10^3/uL (1.0-4.8) Monocytes # (Auto) 0.7 x10^3/uL (0.0-1.1) 0.5 x10^3/uL (0.0-1.1) 0.5 x10^3/uL (0.0-1.1) Eosinophils # (Auto) 0.1 x10^3/uL (0.0-0.7) 0.1 x10^3/uL (0.0-0.7) 0.1 x10^3/uL (0.0-0.7) Basophils # (Auto) 0.0 x10^3/uL (0.0-0.2) 0.0 x10^3/uL (0.0-0.2) 0.0 x10^3/uL (0.0-0.2) Segmented Neutrophils % 56 % (35-66) Lymphocytes % 27 % (24-48) Monocytes % 15 % (0-10) Eosinophils % 2 % (0-5) Platelet Estimate Adequate (ADEQUATE) Lactic Acid Level 0.9 mmol/L (0.4-2.0) 0.9 mmol/L (0.4-2.0) Sodium Level 147 mmol/L (136-145) 145 mmol/L (136-145) Potassium Level 3.9 mmol/L (3.5-5.1) 4.1 mmol/L (3.5-5.1) Chloride Level 109 mmol/L (98-107) 110 mmol/L (98-107) Carbon Dioxide Level 29 mmol/L (21-32) 26 mmol/L (21-32) Anion Gap 9 (6-14) 9 (6-14) Blood Urea Nitrogen 9 mg/dL (8-26) 7 mg/dL (8-26) Creatinine 1.4 mg/dL (0.7-1.3) 1.3 mg/dL (0.7-1.3) Estimated GFR (Cockcroft-Gault) 57.7 62.9 Glucose Level 100 mg/dL (70-99) 109 mg/dL (70-99) Calcium Level 8.4 mg/dL (8.5-10.1) 8.3 mg/dL (8.5-10.1) Magnesium Level 1.9 mg/dL (1.8-2.4) BUN/Creatinine Ratio 5 (6-20) Total Bilirubin 0.4 mg/dL (0.2-1.0) Aspartate Amino Transf (AST/SGOT) 23 U/L (15-37) Alanine Aminotransferase (ALT/SGPT) 15 U/L (16-63) Alkaline Phosphatase 54 U/L (46-116) Total Protein 6.1 g/dL (6.4-8.2) Albumin 3.0 g/dL (3.4-5.0) Albumin/Globulin Ratio 1.0 (1.0-1.7) Laboratory Tests Test 02/12/21 07:20 White Blood Count 3.0 x10^3/uL (4.0-11.0) Red Blood Count 3.81 x10^6/uL (4.30-5.70) Hemoglobin 11.9 g/dL (13.0-17.5) Hematocrit 35.6 % (39.0-53.0) Mean Corpuscular Volume 93 fL (79-100) Mean Corpuscular Hemoglobin 31 pg (25-35) Mean Corpuscular Hemoglobin Concent 33 g/dL (31-37) Red Cell Distribution Width 14.8 % (11.5-14.5) Platelet Count 157 x10^3/uL (140-400) Neutrophils (%) (Auto) 53 % (31-73) Lymphocytes (%) (Auto) 24 % (24-48) Monocytes (%) (Auto) 18 % (0-9) Eosinophils (%) (Auto) 4 % (0-3) Basophils (%) (Auto) 1 % (0-3) Neutrophils # (Auto) 1.6 x10^3/uL (1.8-7.7) Lymphocytes # (Auto) 0.7 x10^3/uL (1.0-4.8) Monocytes # (Auto) 0.5 x10^3/uL (0.0-1.1) Eosinophils # (Auto) 0.1 x10^3/uL (0.0-0.7) Basophils # (Auto) 0.0 x10^3/uL (0.0-0.2) Sodium Level 145 mmol/L (136-145) Potassium Level 4.1 mmol/L (3.5-5.1) Chloride Level 110 mmol/L (98-107) Carbon Dioxide Level 26 mmol/L (21-32) Anion Gap 9 (6-14) Blood Urea Nitrogen 7 mg/dL (8-26) Creatinine 1.3 mg/dL (0.7-1.3) Estimated GFR (Cockcroft-Gault) 62.9 BUN/Creatinine Ratio 5 (6-20) Glucose Level 109 mg/dL (70-99) Calcium Level 8.3 mg/dL (8.5-10.1) Total Bilirubin 0.4 mg/dL (0.2-1.0) Aspartate Amino Transf (AST/SGOT) 23 U/L (15-37) Alanine Aminotransferase (ALT/SGPT) 15 U/L (16-63) Alkaline Phosphatase 54 U/L (46-116) Total Protein 6.1 g/dL (6.4-8.2) Albumin 3.0 g/dL (3.4-5.0) Albumin/Globulin Ratio 1.0 (1.0-1.7) Problem List Problems Medical Problems: (1) Perforated abdominal viscus Status: Acute (2) Perforated bowel Status: Acute (3) Pneumatosis intestinalis Status: Acute (4) Small bowel obstruction Status: Acute Assessment/Plan improved, advance diet Justicifation of Admission Dx: Justifications for Admission: Justification of Admission Dx: Yes MARY FINNEY MD 02/12/211841: SURGICAL PROGRESS NOTE Assessment/Plan Improving bowel function adv diet as tolerated no plans for surgery. Agree with Priscilla' assessment and plan JONNY MORALES LISW Feb 12, 2021 09:50 MARY FINNEY MD Feb 12, 2021 18:42
--- NOTE | 2021-02-12 09:56 | PDOC ---
Infectious Disease Note Subjective: Subjective Patient without complaints Tolerating clear liquids well Had multiple bowel movements this a.m. No acute issues per RN Vital Signs: Vital Signs Vital Signs Date Time Temp Pulse Resp B/P (MAP) Pulse Ox O2 Delivery O2 Flow Rate FiO2 02/12/21 08:58 60 177/85 02/12/21 07:00 97.8 18 96 Nasal Cannula 3.0 97.8 Physical Exam: PHYSICAL EXAM GENERAL: Alert, oriented x 3 male, sitting in chair, in no acute distress. HEENT: Normocephalic, atraumatic, anicteric. No thrush. NECK: Supple, no JVD. LUNGS: Clear bilaterally. No wheezing. HEART: S1, S2. No gallops or murmurs. ABDOMEN: Distended. Bowel sounds present. Mildly tender in the upper quadrant. No rebound, no guarding. EXTREMITIES: No edema, no cyanosis. DERMATOLOGIC: Warm, dry. No generalized rash. NEUROLOGIC: Alert and oriented x 3, grossly nonfocal. PSYCHIATRIC: Cooperative, appropriate mood and affect. DERMATOLOGIC: Warm and dry. No generalized rash. Chest wall, pacemaker site looks clean. Medications: Inpatient Meds: Medications reviewed. Labs: Lab Laboratory Tests Test 02/12/21 07:20 White Blood Count 3.0 x10^3/uL (4.0-11.0) Red Blood Count 3.81 x10^6/uL (4.30-5.70) Hemoglobin 11.9 g/dL (13.0-17.5) Hematocrit 35.6 % (39.0-53.0) Mean Corpuscular Volume 93 fL (79-100) Mean Corpuscular Hemoglobin 31 pg (25-35) Mean Corpuscular Hemoglobin Concent 33 g/dL (31-37) Red Cell Distribution Width 14.8 % (11.5-14.5) Platelet Count 157 x10^3/uL (140-400) Neutrophils (%) (Auto) 53 % (31-73) Lymphocytes (%) (Auto) 24 % (24-48) Monocytes (%) (Auto) 18 % (0-9) Eosinophils (%) (Auto) 4 % (0-3) Basophils (%) (Auto) 1 % (0-3) Neutrophils # (Auto) 1.6 x10^3/uL (1.8-7.7) Lymphocytes # (Auto) 0.7 x10^3/uL (1.0-4.8) Monocytes # (Auto) 0.5 x10^3/uL (0.0-1.1) Eosinophils # (Auto) 0.1 x10^3/uL (0.0-0.7) Basophils # (Auto) 0.0 x10^3/uL (0.0-0.2) Sodium Level 145 mmol/L (136-145) Potassium Level 4.1 mmol/L (3.5-5.1) Chloride Level 110 mmol/L (98-107) Carbon Dioxide Level 26 mmol/L (21-32) Anion Gap 9 (6-14) Blood Urea Nitrogen 7 mg/dL (8-26) Creatinine 1.3 mg/dL (0.7-1.3) Estimated GFR (Cockcroft-Gault) 62.9 BUN/Creatinine Ratio 5 (6-20) Glucose Level 109 mg/dL (70-99) Calcium Level 8.3 mg/dL (8.5-10.1) Total Bilirubin 0.4 mg/dL (0.2-1.0) Aspartate Amino Transf (AST/SGOT) 23 U/L (15-37) Alanine Aminotransferase (ALT/SGPT) 15 U/L (16-63) Alkaline Phosphatase 54 U/L (46-116) Total Protein 6.1 g/dL (6.4-8.2) Albumin 3.0 g/dL (3.4-5.0) Albumin/Globulin Ratio 1.0 (1.0-1.7) Objective: Assessment: 1. Abdominal pain. 2. Small bowel obstruction 3. Pneumatosis intestinalis 4. Coronary artery disease. 5. Hypertension/hyperlipidemia. 6. Paroxysmal atrial fibrillation. 7. Status post permanent pacemaker. 8. Acute kidney injury, improved. 9. Leukopenia.etiology ? , 10. History of colon cancer, status post resection. 11. History of prostate cancer. 12. Status post cholecystectomy. Plan: Plan of Care Continue Zosyn Trend WBC Advanced to full liquids today Maintain aspiration precautions General surgery following Repeat labs in a.m. Monitor labs and cultures Continue supportive care Discussed with YING ENGLE MD Feb 12, 2021 09:55
--- NOTE | 2021-02-12 10:31 | PDOC ---
PROGRESS NOTES Date of Service DATE: 02/12/21 TIME: 10:27 Subjective Subjective drank clear liquids well and had a brief twinge of abdominal pain last night. has diarrhea. lab reviewed. bp is high. Objective Objective Vital Signs Date Time Temp Pulse Resp B/P (MAP) Pulse Ox O2 Delivery O2 Flow Rate FiO2 02/12/21 08:58 60 177/85 02/12/21 07:00 97.8 18 96 Nasal Cannula 3.0 97.8 Intake and Output 02/12/21 07:00 Intake Total 0 ml Output Total 225 ml Balance -225 ml Intake Oral 0 ml Output Urine Total 225 ml # Voids 1 # Bowel Movements 1 Physical Exam Abdomen: Normal bowel sounds, Soft, No tenderness, Other (obese) Heart: Regular rate, Normal S1, Normal S2 Extremities: No edema General: Alert HEENT: Atraumatic Lungs: Clear to auscultation Neuro: Normal speech Psych/Mental Status: Mental status NL Skin: No rashes Assessment Assessment Problems suspect partial SBO morbid obesity hypertension hyperlipidemia paroxysmal atrial fibrillation pnuematosis of small bowel recent small bowel perforation clinically improved diarrhea Medical Problems: (1) Perforated abdominal viscus Status: Acute (2) Perforated bowel Status: Acute (3) Pneumatosis intestinalis Status: Acute (4) Small bowel obstruction Status: Acute Plan Plan of Care diet advanced to full liquids decrease iv fluids lab tomorrow acute abdominal series tomorrow stool for c. diff toxin continue zosyn continue bp meds and prn iv hydralazine Comment Review of Relevant I have reviewed the following items martín (where applicable) has been applied. Labs Laboratory Tests Test 02/10/21 17:10 02/10/21 19:05 02/11/21 07:25 02/12/21 07:20 White Blood Count 3.6 x10^3/uL (4.0-11.0) 2.9 x10^3/uL (4.0-11.0) 3.0 x10^3/uL (4.0-11.0) Red Blood Count 3.78 x10^6/uL (4.30-5.70) 3.76 x10^6/uL (4.30-5.70) 3.81 x10^6/uL (4.30-5.70) Hemoglobin 11.7 g/dL (13.0-17.5) 11.7 g/dL (13.0-17.5) 11.9 g/dL (13.0-17.5) Hematocrit 35.0 % (39.0-53.0) 35.0 % (39.0-53.0) 35.6 % (39.0-53.0) Mean Corpuscular Volume 93 fL (79-100) 93 fL (79-100) 93 fL (79-100) Mean Corpuscular Hemoglobin 31 pg (25-35) 31 pg (25-35) 31 pg (25-35) Mean Corpuscular Hemoglobin Concent 34 g/dL (31-37) 33 g/dL (31-37) 33 g/dL (31-37) Red Cell Distribution Width 14.9 % (11.5-14.5) 14.9 % (11.5-14.5) 14.8 % (11.5-14.5) Platelet Count 157 x10^3/uL (140-400) 153 x10^3/uL (140-400) 157 x10^3/uL (140-400) Neutrophils (%) (Auto) 53 % (31-73) 52 % (31-73) 53 % (31-73) Lymphocytes (%) (Auto) 26 % (24-48) 27 % (24-48) 24 % (24-48) Monocytes (%) (Auto) 18 % (0-9) 18 % (0-9) 18 % (0-9) Eosinophils (%) (Auto) 2 % (0-3) 2 % (0-3) 4 % (0-3) Basophils (%) (Auto) 1 % (0-3) 1 % (0-3) 1 % (0-3) Neutrophils # (Auto) 1.9 x10^3/uL (1.8-7.7) 1.5 x10^3/uL (1.8-7.7) 1.6 x10^3/uL (1.8-7.7) Lymphocytes # (Auto) 0.9 x10^3/uL (1.0-4.8) 0.8 x10^3/uL (1.0-4.8) 0.7 x10^3/uL (1.0-4.8) Monocytes # (Auto) 0.7 x10^3/uL (0.0-1.1) 0.5 x10^3/uL (0.0-1.1) 0.5 x10^3/uL (0.0-1.1) Eosinophils # (Auto) 0.1 x10^3/uL (0.0-0.7) 0.1 x10^3/uL (0.0-0.7) 0.1 x10^3/uL (0.0-0.7) Basophils # (Auto) 0.0 x10^3/uL (0.0-0.2) 0.0 x10^3/uL (0.0-0.2) 0.0 x10^3/uL (0.0-0.2) Segmented Neutrophils % 56 % (35-66) Lymphocytes % 27 % (24-48) Monocytes % 15 % (0-10) Eosinophils % 2 % (0-5) Platelet Estimate Adequate (ADEQUATE) Lactic Acid Level 0.9 mmol/L (0.4-2.0) 0.9 mmol/L (0.4-2.0) Sodium Level 147 mmol/L (136-145) 145 mmol/L (136-145) Potassium Level 3.9 mmol/L (3.5-5.1) 4.1 mmol/L (3.5-5.1) Chloride Level 109 mmol/L (98-107) 110 mmol/L (98-107) Carbon Dioxide Level 29 mmol/L (21-32) 26 mmol/L (21-32) Anion Gap 9 (6-14) 9 (6-14) Blood Urea Nitrogen 9 mg/dL (8-26) 7 mg/dL (8-26) Creatinine 1.4 mg/dL (0.7-1.3) 1.3 mg/dL (0.7-1.3) Estimated GFR (Cockcroft-Gault) 57.7 62.9 Glucose Level 100 mg/dL (70-99) 109 mg/dL (70-99) Calcium Level 8.4 mg/dL (8.5-10.1) 8.3 mg/dL (8.5-10.1) Magnesium Level 1.9 mg/dL (1.8-2.4) BUN/Creatinine Ratio 5 (6-20) Total Bilirubin 0.4 mg/dL (0.2-1.0) Aspartate Amino Transf (AST/SGOT) 23 U/L (15-37) Alanine Aminotransferase (ALT/SGPT) 15 U/L (16-63) Alkaline Phosphatase 54 U/L (46-116) Total Protein 6.1 g/dL (6.4-8.2) Albumin 3.0 g/dL (3.4-5.0) Albumin/Globulin Ratio 1.0 (1.0-1.7) Laboratory Tests Test 02/12/21 07:20 White Blood Count 3.0 x10^3/uL (4.0-11.0) Red Blood Count 3.81 x10^6/uL (4.30-5.70) Hemoglobin 11.9 g/dL (13.0-17.5) Hematocrit 35.6 % (39.0-53.0) Mean Corpuscular Volume 93 fL (79-100) Mean Corpuscular Hemoglobin 31 pg (25-35) Mean Corpuscular Hemoglobin Concent 33 g/dL (31-37) Red Cell Distribution Width 14.8 % (11.5-14.5) Platelet Count 157 x10^3/uL (140-400) Neutrophils (%) (Auto) 53 % (31-73) Lymphocytes (%) (Auto) 24 % (24-48) Monocytes (%) (Auto) 18 % (0-9) Eosinophils (%) (Auto) 4 % (0-3) Basophils (%) (Auto) 1 % (0-3) Neutrophils # (Auto) 1.6 x10^3/uL (1.8-7.7) Lymphocytes # (Auto) 0.7 x10^3/uL (1.0-4.8) Monocytes # (Auto) 0.5 x10^3/uL (0.0-1.1) Eosinophils # (Auto) 0.1 x10^3/uL (0.0-0.7) Basophils # (Auto) 0.0 x10^3/uL (0.0-0.2) Sodium Level 145 mmol/L (136-145) Potassium Level 4.1 mmol/L (3.5-5.1) Chloride Level 110 mmol/L (98-107) Carbon Dioxide Level 26 mmol/L (21-32) Anion Gap 9 (6-14) Blood Urea Nitrogen 7 mg/dL (8-26) Creatinine 1.3 mg/dL (0.7-1.3) Estimated GFR (Cockcroft-Gault) 62.9 BUN/Creatinine Ratio 5 (6-20) Glucose Level 109 mg/dL (70-99) Calcium Level 8.3 mg/dL (8.5-10.1) Total Bilirubin 0.4 mg/dL (0.2-1.0) Aspartate Amino Transf (AST/SGOT) 23 U/L (15-37) Alanine Aminotransferase (ALT/SGPT) 15 U/L (16-63) Alkaline Phosphatase 54 U/L (46-116) Total Protein 6.1 g/dL (6.4-8.2) Albumin 3.0 g/dL (3.4-5.0) Albumin/Globulin Ratio 1.0 (1.0-1.7) Medications Current Medications Iohexol (Omnipaque 300 Mg/ml) 60 ml 1X ONCE IV ; Start 02/07/21 at 13:45; Stop 02/07/21 at 13:51; Status DC Info (CONTRAST GIVEN -- Rx MONITORING) 1 each PRN DAILY PRN MC SEE COMMENTS; Start 02/07/21 at 14:00; Stop 02/09/21 at 13:59; Status DC Piperacillin Sod/ Tazobactam Sod (Zosyn Per Pharmacy) 1 each PRN DAILY PRN MC SEE COMMENTS; Start 02/07/21 at 14:30 Piperacillin Sod/ Tazobactam Sod 2.25 gm/Sodium Chloride 50 ml @ 100 mls/hr 1X ONCE IV Last administered on 02/07/21at 15:59; Start 02/07/21 at 14:45; Stop 02/07/21 at 15:14; Status DC Ondansetron HCl (Zofran) 4 mg PRN Q8HRS PRN IV NAUSEA/VOMITING; Start 02/07/21 at 15:00; Stop 02/07/21 at 15:54; Status DC Morphine Sulfate (Morphine Sulfate) 4 mg PRN Q2HR PRN IV PAIN Last administered on 02/07/21at 18:17; Start 02/07/21 at 15:00; Stop 02/08/21 at 14:59; Status DC Sodium Chloride 1,000 ml @ 75 mls/hr [id number] IV Last administered on 02/07/21at 15:59; Start 02/07/21 at 15:00; Stop 02/08/21 at 14:59; Status DC Piperacillin Sod/ Tazobactam Sod 2.25 gm/Sodium Chloride 50 ml @ 100 mls/hr Q6HRS IV Last administered on 02/08/21at 05:08; Start 02/08/21 at 00:00; Stop 02/08/21 at 11:42; Status DC Potassium Chloride/Dextrose/ Sod Cl 1,000 ml @ 80 mls/hr [id number] IV Last administered on 02/12/21at 09:04; Start 02/07/21 at 15:45 Ondansetron HCl (Zofran) 4 mg PRN Q6HRS PRN IVP NAUSEA/VOMITING Last administered on 02/07/21at 18:17; Start 02/07/21 at 15:45 Famotidine (Pepcid Vial) 20 mg DAILY IVP Last administered on 02/09/21at 08:03; Start 02/07/21 at 18:00; Stop 02/09/21 at 09:38; Status DC Morphine Sulfate (Morphine Sulfate) 2 mg PRN Q4HRS PRN IV PAIN Last administered on 02/08/21at 22:16; Start 02/07/21 at 15:45; Stop 02/09/21 at 09:38 ; Status DC Acetaminophen (Tylenol Supp) 650 mg PRN Q6HRS PRN [place] MILD PAIN / TEMP > 100.3'F; Start 02/07/21 at 15:45; Stop 02/09/21 at 09:38; Status DC Hydralazine HCl (Apresoline Inj) 10 mg PRN Q4HRS PRN IVP ELEVATED BP, SEE COMMENTS; Start 02/07/21 at 15:45 Nitroglycerin (Nitro-Dur) 1 patch DAILY TD Last administered on 02/09/21at 08:04; Start 02/08/21 at 09:00; Stop 02/09/21 at 09:38; Status DC Enoxaparin Sodium (Lovenox 40mg Syringe) 40 mg Q24H SQ Last administered on 02/12/21at 08:59; Start 02/08/21 at 09:00 Metoprolol Tartrate (Lopressor Vial) 5 mg Q6HRS IVP ; Start 02/08/21 at 10:00; Stop 02/08/21 at 10:09; Status DC Metoprolol Tartrate (Lopressor Vial) 2.5 mg Q6HRS IVP Last administered on 02/09/21at 05:14; Start 02/08/21 at 12:00; Stop 02/09/21 at 09:38; Status DC Piperacillin Sod/ Tazobactam Sod 3.375 gm/Sodium Chloride 50 ml @ 100 mls/hr Q6HRS IV Last administered on 02/12/21at 05:28; Start 02/08/21 at 12:00 Acetaminophen (Tylenol) 650 mg PRN Q6HRS PRN PO MILD PAIN / TEMP > 100.3'F Last administered on 02/10/21at 13:34; Start 02/09/21 at 09:30 Famotidine (Pepcid) 20 mg DAILY PO Last administered on 02/12/21at 08:57; Start 02/09/21 at 10:00 Acetaminophen/ Hydrocodone Bitart (Lortab 5/325) 1 tab PRN Q4HRS PRN PO MODERATE TO SEVERE PAIN Last administered on 02/10/21at 19:59; Start 02/09/21 at 09:30 Fentanyl Citrate (Fentanyl 2ml Vial) 25 mcg PRN Q4HRS PRN IVP MODERATE PAIN Last administered on 02/10/21at 16:37; Start 02/09/21 at 09:30 Amlodipine Besylate (Norvasc) 10 mg DAILY PO Last administered on 02/12/21at 08:57; Start 02/09/21 at 10:00 Furosemide (Lasix) 20 mg DAILY PO Last administered on 02/12/21at 08:57; Start 02/09/21 at 10:00 Potassium Chloride (Klor-Con) 20 meq DAILYWBKFT PO Last administered on 02/12/21at 08:57; Start 02/09/21 at 10:00 EZETIMIBE (Zetia) 10 mg DAILY PO Last administered on 02/12/21at 08:56; Start 02/09/21 at 10:00 Nitroglycerin (Nitrostat) 0.4 mg PRN Q5MIN PRN SL CHEST PAIN; Start 02/09/21 at 09:30 Losartan Potassium (Cozaar) 100 mg DAILY PO Last administered on 02/12/21at 08:56; Start 02/09/21 at 10:00 Multivitamins (Thera M Plus) 1 tab DAILY PO Last administered on 02/12/21at 08:57; Start 02/09/21 at 10:00 Aspirin (Misty Aspirin) 81 mg DAILYWBKFT PO Last administered on 02/09/21at 12:18; Start 02/09/21 at 12:00; Stop 02/10/21 at 08:57; Status DC Sotalol HCl (Betapace) 80 mg BID PO Last administered on 02/12/21at 08:58; Start 02/09/21 at 10:00 Lactobacillus Rhamnosus (Culturelle) 1 cap BID PO Last administered on 02/12/21at 08:57; Start 02/09/21 at 21:00 Docusate Sodium (Colace) 100 mg PRN BID PRN PO HARD STOOLS; Start 02/09/21 at 13:30 Aspirin (Aspirin Chewable) 81 mg STK-MED ONCE .ROUTE ; Start 02/10/21 at 07:53; Stop 02/10/21 at 07:53; Status DC Aspirin (Ecotrin) 81 mg [id number] PO Last administered on 02/12/21at 08:56; Start 02/11/21 at 08:00 Hydralazine HCl (Apresoline) 25 mg TID PO Last administered on 02/12/21at 08:58; Start 02/10/21 at 12:00 Isosorbide Dinitrate (Isordil) 20 mg TID PO Last administered on 02/12/21at 08:57; Start 02/10/21 at 12:00 Gabapentin (Neurontin) 300 mg TID PO Last administered on 02/12/21at 08:57; Start 02/10/21 at 12:00 Trazodone HCl (Desyrel) 50 mg QHS PO Last administered on 02/11/21at 21:34; Start 02/10/21 at 21:00 Iohexol (Omnipaque 300 Mg/ml) 60 ml 1X ONCE IV ; Start 02/10/21 at 17:45; Stop 02/10/21 at 17:46; Status DC Info (CONTRAST GIVEN -- Rx MONITORING) 1 each PRN DAILY PRN MC SEE COMMENTS; Start 02/10/21 at 17:45; Stop 02/12/21 at 17:44 Aspirin (Aspirin Chewable) 81 mg STK-MED ONCE .ROUTE ; Start 02/10/21 at 08:00; Stop 02/12/21 at 09:02; Status DC Active Scripts Active Betapace (Sotalol Hcl) 80 Mg Tablet 80 Mg PO BID Ezetimibe 10 Mg Tablet 10 Mg PO DAILY Reported Isosorbide Dinitrate 40 Mg Tablet.er 20 Mg PO TID Furosemide 20 Mg Tablet 20 Mg PO DAILY Docusate Sodium 100 Mg Capsule 1 Cap PO DAILY PRN Gabapentin 600 Mg Tablet 600 Mg PO TID Hydralazine Hcl 25 Mg Tablet 1 Tab PO TID Eliquis (Apixaban) 5 Mg Tablet 5 Mg PO BID Amlodipine Besylate 10 Mg Tablet 10 Mg PO DAILY Aspir 81 (Aspirin) 81 Mg Tablet.dr 1 Tab PO DAILY Potassium Chloride (Potassium Chloride) 20 Meq Tablet.er 20 Meq PO DAILY Multi Vitamin Daily (Multivitamin) 1 Each Tablet 1 Each PO DAILY Losartan Potassium 100 Mg Tablet 100 Mg PO DAILY Vitals/I & O Vital Sign - Last 24 Hours 02/11/21 02/11/21 02/11/21 02/11/21 11:00 14:00 14:01 15:00 Temp 98.0 97.6 98.0 97.6 Pulse 62 62 62 63 Resp 18 18 B/P (MAP) 150/77 (101) 150/77 150/77 125/61 (82) Pulse Ox 96 95 O2 Delivery Room Air Room Air 02/11/21 02/11/21 02/11/21 02/11/21 19:13 19:50 21:33 21:34 Temp 97.9 97.9 Pulse 61 61 61 Resp 16 B/P (MAP) 171/85 (113) 171/85 171/85 Pulse Ox 95 O2 Delivery Room Air Room Air 02/11/21 02/11/21 02/11/21 02/12/21 21:35 23:06 23:15 03:00 Temp 97.9 97.7 98.2 97.9 97.7 98.2 Pulse 61 60 60 61 Resp 16 22 20 B/P (MAP) 171/85 177/84 (115) 175/83 (113) 149/76 (100) Pulse Ox 97 99 97 O2 Delivery Nasal Cannula Nasal Cannula Nasal Cannula O2 Flow Rate 2.0 2.0 3.0 02/12/21 02/12/21 02/12/21 02/12/21 07:00 08:56 08:57 08:57 Temp 97.8 97.8 Pulse 60 60 60 60 Resp 18 B/P (MAP) 177/85 (115) 177/85 177/85 177/85 Pulse Ox 96 O2 Delivery Nasal Cannula O2 Flow Rate 3.0 02/12/21 02/12/21 08:58 08:58 Pulse 60 60 B/P (MAP) 177/85 177/85 Intake and Output 02/11/21 02/11/21 02/12/21 15:00 23:00 07:00 Intake Total 0 ml Output Total 225 ml Balance 0 ml -225 ml Justifications for Admission Other Justification LAN DOWLING MD Feb 12, 2021 10:31
[2021-02-12 11:00] VITALS: BP 149/76
--- NOTE | 2021-02-12 12:02 | NUR ---
ARELI Kaufman notified of dr. hammond wanting Eliquis started when appropriate. Telephone orders received.
--- NOTE | 2021-02-12 12:39 | PDOC ---
Date of Service: DATE: 02/12/21 TIME: 12:37 Subjective: Subjective: Tolerating clear liquids and having a lot of diarrhea. Had some mild pain earlier (rates 2/10) - resolved. Objective: Vital Signs: Vital Signs Date Time Temp Pulse Resp B/P (MAP) Pulse Ox O2 Delivery O2 Flow Rate FiO2 02/12/21 11:00 97.7 61 18 149/76 (100) 92 Nasal Cannula 3.0 97.7 Labs: Laboratory Tests Test 02/12/21 07:20 White Blood Count 3.0 x10^3/uL Red Blood Count 3.81 x10^6/uL Hemoglobin 11.9 g/dL Hematocrit 35.6 % Mean Corpuscular Volume 93 fL Mean Corpuscular Hemoglobin 31 pg Mean Corpuscular Hemoglobin Concent 33 g/dL Red Cell Distribution Width 14.8 % Platelet Count 157 x10^3/uL Neutrophils (%) (Auto) 53 % Lymphocytes (%) (Auto) 24 % Monocytes (%) (Auto) 18 % Eosinophils (%) (Auto) 4 % Basophils (%) (Auto) 1 % Neutrophils # (Auto) 1.6 x10^3/uL Lymphocytes # (Auto) 0.7 x10^3/uL Monocytes # (Auto) 0.5 x10^3/uL Eosinophils # (Auto) 0.1 x10^3/uL Basophils # (Auto) 0.0 x10^3/uL Sodium Level 145 mmol/L Potassium Level 4.1 mmol/L Chloride Level 110 mmol/L Carbon Dioxide Level 26 mmol/L Anion Gap 9 Blood Urea Nitrogen 7 mg/dL Creatinine 1.3 mg/dL Estimated GFR (Cockcroft-Gault) 62.9 BUN/Creatinine Ratio 5 Glucose Level 109 mg/dL Calcium Level 8.3 mg/dL Total Bilirubin 0.4 mg/dL Aspartate Amino Transf (AST/SGOT) 23 U/L Alanine Aminotransferase (ALT/SGPT) 15 U/L Alkaline Phosphatase 54 U/L Total Protein 6.1 g/dL Albumin 3.0 g/dL Albumin/Globulin Ratio 1.0 Imaging: CT A/P 02/10 IMPRESSION: 1. The bowel pneumatosis and pneumoperitoneum has considerably decreased and has nearly completely resolved. There is distention of the small bowel which persists, this could represent some resolving ileus from prior ischemic injury. A developing small bowel obstruction due to an adhesion at the right lower quadrant abdomen is also possible given some distortion of the bowel loops and mesentery at this region. 2. Other stable findings as described above. AAS 02/11 Impression: 1. Mildly dilated air-filled loops of small bowel throughout the abdomen, decreased compared to prior. PE: GEN: NAD, up in chair LUNGS: CTAB HEART: RRR ABD: NABS, round, soft, non-tender NEURO/PSYCH: A & O 3 A/P: Concern for perforated SBO H/o colon cancer -- Eating and stooling. Continue per surgery. Justicifation of Admission Dx: Justifications for Admission: Justification of Admission Dx: Yes TARIK PORTER Feb 12, 2021 12:39
[2021-02-12 15:00] VITALS: BP 152/79
[2021-02-12 19:00] VITALS: BP 152/73
[2021-02-12] MEDS: traZODone 50 MG TABLET. PO SCH (20:47)
[2021-02-12 23:00] VITALS: BP 121/71
[2021-02-13] MEDS: PIPERACILLIN/TAZOBACTAM 3.375 GM in IV NORMAL SALINE 50ML 50 ML IV SCH ×2 (00:11→05:50)
[2021-02-13 03:00] VITALS: BP 106/64
[2021-02-13 07:00] VITALS: BP 118/54
[2021-02-13] MEDS: POTASSIUM CHLORIDE 20 MEQ TABLET.ER. PO SCH (08:00)
[2021-02-13] MEDS: ASPIRIN ENTERIC COATED 81 MG TABLET.DR. PO SCH (08:00)
--- NOTE | 2021-02-13 08:06 | PDOC ---
Infectious Disease Note Subjective: Subjective Patient without complaints Tolerating clear liquids well Had multiple bowel movements this a.m. No acute issues per RN Vital Signs: Vital Signs Vital Signs Date Time Temp Pulse Resp B/P (MAP) Pulse Ox O2 Delivery O2 Flow Rate FiO2 02/13/21 07:20 Room Air 02/13/21 07:00 98.4 56 18 118/54 (75) 94 98.4 02/12/21 23:00 2.0 Physical Exam: PHYSICAL EXAM GENERAL: Alert, oriented x 3 male, sitting in chair, in no acute distress. HEENT: Normocephalic, atraumatic, anicteric. No thrush. NECK: Supple, no JVD. LUNGS: Clear bilaterally. No wheezing. HEART: S1, S2. No gallops or murmurs. ABDOMEN: Distended. Bowel sounds present. Mildly tender in the upper quadrant. No rebound, no guarding. EXTREMITIES: No edema, no cyanosis. DERMATOLOGIC: Warm, dry. No generalized rash. NEUROLOGIC: Alert and oriented x 3, grossly nonfocal. PSYCHIATRIC: Cooperative, appropriate mood and affect. DERMATOLOGIC: Warm and dry. No generalized rash. Chest wall, pacemaker site looks clean. Medications: Inpatient Meds: Medications reviewed. Objective: Assessment: 1. Abdominal pain. 2. Small bowel obstruction improving 3. Pneumatosis intestinalis improving 4. Coronary artery disease. 5. Hypertension/hyperlipidemia. 6. Paroxysmal atrial fibrillation. 7. Status post permanent pacemaker. 8. Acute kidney injury, improved. 9. Leukopenia.etiology ? , 10. History of colon cancer, status post resection. 11. History of prostate cancer. 12. Status post cholecystectomy. Plan: Plan of Care f/u abdo khadijah GÓMEZ Zosyn augmentin cont supportive care YING PRO MD Feb 13, 2021 08:06
[2021-02-13] MEDS: FUROSEMIDE 20 MG TABLET PO SCH (09:00)
[2021-02-13] MEDS: amLODIPine BESYLATE 10 MG TABLET PO SCH (09:00)
[2021-02-13] MEDS: FAMOTIDINE 20 MG TABLET. PO SCH (09:00)
[2021-02-13] MEDS: MULTIVITAMIN with MINERAL TABLET. PO SCH (09:00)
[2021-02-13] MEDS: EZETIMIBE 10 MG TABLET. PO SCH (09:00)
[2021-02-13] MEDS: GABAPENTIN 300 MG CAPSULE. PO SCH ×3 (09:00→20:35)
[2021-02-13] MEDS: ISOSORBIDE DINITRATE 10 MG TABLET. PO SCH ×3 (09:00→20:35)
[2021-02-13] MEDS: LACTOBACILLUS RHAMNOSUS GG 1 CAPSULE. PO SCH ×2 (09:00→20:35)
[2021-02-13] MEDS: LOSARTAN POTASSIUM 50 MG TABLET. PO SCH (09:00)
[2021-02-13] MEDS: SOTALOL 80 MG TABLET. PO SCH ×2 (09:00→20:36)
--- NOTE | 2021-02-13 09:17 | PDOC ---
SURGICAL PROGRESS NOTE DATE: 02/13/21 TIME: 09:16 Subjective tolerated diet having loose stools no pain Vital Signs Vital Signs Date Time Temp Pulse Resp B/P (MAP) Pulse Ox O2 Delivery O2 Flow Rate FiO2 02/13/21 07:20 Room Air 02/13/21 07:00 98.4 56 18 118/54 (75) 94 98.4 02/12/21 23:00 2.0 I&O Intake and Output 02/13/21 07:00 Intake Total 2000 ml Output Total 500 ml Balance 1500 ml Intake Oral 1000 ml IV Total 1000 ml Output Urine Total 500 ml # Voids 1 General: Alert, Oriented X3, Cooperative Abdomen: Soft, No tenderness Labs Laboratory Tests Test 02/12/21 07:20 White Blood Count 3.0 x10^3/uL (4.0-11.0) Red Blood Count 3.81 x10^6/uL (4.30-5.70) Hemoglobin 11.9 g/dL (13.0-17.5) Hematocrit 35.6 % (39.0-53.0) Mean Corpuscular Volume 93 fL (79-100) Mean Corpuscular Hemoglobin 31 pg (25-35) Mean Corpuscular Hemoglobin Concent 33 g/dL (31-37) Red Cell Distribution Width 14.8 % (11.5-14.5) Platelet Count 157 x10^3/uL (140-400) Neutrophils (%) (Auto) 53 % (31-73) Lymphocytes (%) (Auto) 24 % (24-48) Monocytes (%) (Auto) 18 % (0-9) Eosinophils (%) (Auto) 4 % (0-3) Basophils (%) (Auto) 1 % (0-3) Neutrophils # (Auto) 1.6 x10^3/uL (1.8-7.7) Lymphocytes # (Auto) 0.7 x10^3/uL (1.0-4.8) Monocytes # (Auto) 0.5 x10^3/uL (0.0-1.1) Eosinophils # (Auto) 0.1 x10^3/uL (0.0-0.7) Basophils # (Auto) 0.0 x10^3/uL (0.0-0.2) Sodium Level 145 mmol/L (136-145) Potassium Level 4.1 mmol/L (3.5-5.1) Chloride Level 110 mmol/L (98-107) Carbon Dioxide Level 26 mmol/L (21-32) Anion Gap 9 (6-14) Blood Urea Nitrogen 7 mg/dL (8-26) Creatinine 1.3 mg/dL (0.7-1.3) Estimated GFR (Cockcroft-Gault) 62.9 BUN/Creatinine Ratio 5 (6-20) Glucose Level 109 mg/dL (70-99) Calcium Level 8.3 mg/dL (8.5-10.1) Total Bilirubin 0.4 mg/dL (0.2-1.0) Aspartate Amino Transf (AST/SGOT) 23 U/L (15-37) Alanine Aminotransferase (ALT/SGPT) 15 U/L (16-63) Alkaline Phosphatase 54 U/L (46-116) Total Protein 6.1 g/dL (6.4-8.2) Albumin 3.0 g/dL (3.4-5.0) Albumin/Globulin Ratio 1.0 (1.0-1.7) Problem List Problems Medical Problems: (1) Perforated abdominal viscus Status: Acute (2) Perforated bowel Status: Acute (3) Pneumatosis intestinalis Status: Acute (4) Small bowel obstruction Status: Acute Assessment/Plan having no pain xr pending-if stable can advance diet and work toward dc home Justicifation of Admission Dx: Justifications for Admission: Justification of Admission Dx: Yes JONNY MORALES APRN Feb 13, 2021 09:17
--- NOTE | 2021-02-13 10:25 | PDOC ---
PROGRESS NOTES Date of Service DATE: 02/13/21 TIME: 10:22 Subjective Subjective has diarrhea but denies abdominal pain or nausea or vomiting. lab and AA series pending. bp better. Objective Objective Vital Signs Date Time Temp Pulse Resp B/P (MAP) Pulse Ox O2 Delivery O2 Flow Rate FiO2 02/13/21 09:00 56 118/54 02/13/21 07:20 Room Air 02/13/21 07:00 98.4 18 94 98.4 02/12/21 23:00 2.0 Intake and Output 02/13/21 06:59 Intake Total 2000 ml Output Total 500 ml Balance 1500 ml Intake Oral 1000 ml IV Total 1000 ml Output Urine Total 500 ml # Voids 1 Physical Exam Abdomen: Normal bowel sounds, Soft, No tenderness, Other (obese) Heart: Regular rate, Normal S1, Normal S2 Extremities: No edema General: Alert HEENT: Atraumatic Lungs: Clear to auscultation Neuro: Normal speech Psych/Mental Status: Mental status NL Skin: No rashes Assessment Assessment Problems suspect partial SBO . clinically improved morbid obesity hypertension hyperlipidemia paroxysmal atrial fibrillation pnuematosis of small bowel recent small bowel perforation clinically improved diarrhea Medical Problems: (1) Perforated abdominal viscus Status: Acute (2) Perforated bowel Status: Acute (3) Pneumatosis intestinalis Status: Acute (4) Small bowel obstruction Status: Acute Plan Plan of Care stool for c. diff acute abdominal series pending labs pending advance to soft solids d/c iv fluids iv zosyn resume eliquis and stop lovenox when okay with surgery services. discussed with his nurse Comment Review of Relevant I have reviewed the following items martín (where applicable) has been applied. Labs Laboratory Tests Test 02/12/21 07:20 White Blood Count 3.0 x10^3/uL (4.0-11.0) Red Blood Count 3.81 x10^6/uL (4.30-5.70) Hemoglobin 11.9 g/dL (13.0-17.5) Hematocrit 35.6 % (39.0-53.0) Mean Corpuscular Volume 93 fL (79-100) Mean Corpuscular Hemoglobin 31 pg (25-35) Mean Corpuscular Hemoglobin Concent 33 g/dL (31-37) Red Cell Distribution Width 14.8 % (11.5-14.5) Platelet Count 157 x10^3/uL (140-400) Neutrophils (%) (Auto) 53 % (31-73) Lymphocytes (%) (Auto) 24 % (24-48) Monocytes (%) (Auto) 18 % (0-9) Eosinophils (%) (Auto) 4 % (0-3) Basophils (%) (Auto) 1 % (0-3) Neutrophils # (Auto) 1.6 x10^3/uL (1.8-7.7) Lymphocytes # (Auto) 0.7 x10^3/uL (1.0-4.8) Monocytes # (Auto) 0.5 x10^3/uL (0.0-1.1) Eosinophils # (Auto) 0.1 x10^3/uL (0.0-0.7) Basophils # (Auto) 0.0 x10^3/uL (0.0-0.2) Sodium Level 145 mmol/L (136-145) Potassium Level 4.1 mmol/L (3.5-5.1) Chloride Level 110 mmol/L (98-107) Carbon Dioxide Level 26 mmol/L (21-32) Anion Gap 9 (6-14) Blood Urea Nitrogen 7 mg/dL (8-26) Creatinine 1.3 mg/dL (0.7-1.3) Estimated GFR (Cockcroft-Gault) 62.9 BUN/Creatinine Ratio 5 (6-20) Glucose Level 109 mg/dL (70-99) Calcium Level 8.3 mg/dL (8.5-10.1) Total Bilirubin 0.4 mg/dL (0.2-1.0) Aspartate Amino Transf (AST/SGOT) 23 U/L (15-37) Alanine Aminotransferase (ALT/SGPT) 15 U/L (16-63) Alkaline Phosphatase 54 U/L (46-116) Total Protein 6.1 g/dL (6.4-8.2) Albumin 3.0 g/dL (3.4-5.0) Albumin/Globulin Ratio 1.0 (1.0-1.7) Medications Current Medications Iohexol (Omnipaque 300 Mg/ml) 60 ml 1X ONCE IV ; Start 02/07/21 at 13:45; Stop 02/07/21 at 13:51; Status DC Info (CONTRAST GIVEN -- Rx MONITORING) 1 each PRN DAILY PRN MC SEE COMMENTS; Start 02/07/21 at 14:00; Stop 02/09/21 at 13:59; Status DC Piperacillin Sod/ Tazobactam Sod (Zosyn Per Pharmacy) 1 each PRN DAILY PRN MC SEE COMMENTS; Start 02/07/21 at 14:30 Piperacillin Sod/ Tazobactam Sod 2.25 gm/Sodium Chloride 50 ml @ 100 mls/hr 1X ONCE IV Last administered on 02/07/21at 15:59; Start 02/07/21 at 14:45; Stop 02/07/21 at 15:14; Status DC Ondansetron HCl (Zofran) 4 mg PRN Q8HRS PRN IV NAUSEA/VOMITING; Start 02/07/21 at 15:00; Stop 02/07/21 at 15:54; Status DC Morphine Sulfate (Morphine Sulfate) 4 mg PRN Q2HR PRN IV PAIN Last administered on 02/07/21at 18:17; Start 02/07/21 at 15:00; Stop 02/08/21 at 14:59; Status DC Sodium Chloride 1,000 ml @ 75 mls/hr [id number] IV Last administered on 02/07/21at 15:59; Start 02/07/21 at 15:00; Stop 02/08/21 at 14:59; Status DC Piperacillin Sod/ Tazobactam Sod 2.25 gm/Sodium Chloride 50 ml @ 100 mls/hr Q6HRS IV Last administered on 02/08/21at 05:08; Start 02/08/21 at 00:00; Stop 02/08/21 at 11:42; Status DC Potassium Chloride/Dextrose/ Sod Cl 1,000 ml @ 40 mls/hr Q24H IV Last administered on 02/12/21at 20:46; Start 02/07/21 at 15:45 Ondansetron HCl (Zofran) 4 mg PRN Q6HRS PRN IVP NAUSEA/VOMITING Last administered on 02/07/21at 18:17; Start 02/07/21 at 15:45 Famotidine (Pepcid Vial) 20 mg DAILY IVP Last administered on 02/09/21at 08:03; Start 02/07/21 at 18:00; Stop 02/09/21 at 09:38; Status DC Morphine Sulfate (Morphine Sulfate) 2 mg PRN Q4HRS PRN IV PAIN Last administered on 02/08/21at 22:16; Start 02/07/21 at 15:45; Stop 02/09/21 at 09:38; Status DC Acetaminophen (Tylenol Supp) 650 mg PRN Q6HRS PRN CO MILD PAIN / TEMP > 100.3'F; Start 02/07/21 at 15:45; Stop 02/09/21 at 09:38; Status DC Hydralazine HCl (Apresoline Inj) 10 mg PRN Q4HRS PRN IVP ELEVATED BP, SEE COMMENTS; Start 02/07/21 at 15:45 Nitroglycerin (Nitro-Dur) 1 patch DAILY TD Last administered on 02/09/21at 08:04; Start 02/08/21 at 09:00; Stop 02/09/21 at 09:38; Status DC Enoxaparin Sodium (Lovenox 40mg Syringe) 40 mg Q24H SQ Last administered on 02/12/21at 08:59; Start 02/08/21 at 09:00 Metoprolol Tartrate (Lopressor Vial) 5 mg Q6HRS IVP ; Start 02/08/21 at 10:00; Stop 02/08/21 at 10:09; Status DC Metoprolol Tartrate (Lopressor Vial) 2.5 mg Q6HRS IVP Last administered on 02/09/21at 05:14; Start 02/08/21 at 12:00; Stop 02/09/21 at 09:38; Status DC Piperacillin Sod/ Tazobactam Sod 3.375 gm/Sodium Chloride 50 ml @ 100 mls/hr Q6HRS IV Last administered on 02/13/21at 05:50; Start 02/08/21 at 12:00 Acetaminophen (Tylenol) 650 mg PRN Q6HRS PRN PO MILD PAIN / TEMP > 100.3'F Last administered on 02/10/21at 13:34; Start 02/09/21 at 09:30 Famotidine (Pepcid) 20 mg DAILY PO Last administered on 02/12/21at 08:57; Start 02/09/21 at 10:00 Acetaminophen/ Hydrocodone Bitart (Lortab 5/325) 1 tab PRN Q4HRS PRN PO MODERATE TO SEVERE PAIN Last administered on 02/10/21 19:59; Start 02/09/21 at 09:30 Fentanyl Citrate (Fentanyl 2ml Vial) 25 mcg PRN Q4HRS PRN IVP MODERATE PAIN Last administered on 02/10/21at 16:37; Start 02/09/21 at 09:30 Amlodipine Besylate (Norvasc) 10 mg DAILY PO Last administered on 02/12/21 08:57; Start 02/09/21 at 10:00 Furosemide (Lasix) 20 mg DAILY PO Last administered on 02/12/21 08:57; Start 02/09/21 at 10:00 Potassium Chloride (Klor-Con) 20 meq DAILYWBKFT PO Last administered on 02/12/21 08:57; Start 02/09/21 at 10:00 EZETIMIBE (Zetia) 10 mg DAILY PO Last administered on 02/12/21 08:56; Start 02/09/21 at 10:00 Nitroglycerin (Nitrostat) 0.4 mg PRN Q5MIN PRN SL CHEST PAIN; Start 02/09/21 at 09:30 Losartan Potassium (Cozaar) 100 mg DAILY PO Last administered on 02/12/21 08:56; Start 02/09/21 at 10:00 Multivitamins (Thera M Plus) 1 tab DAILY PO Last administered on 02/12/21 08:57; Start 02/09/21 at 10:00 Aspirin (Misty Aspirin) 81 mg DAILYWBKFT PO Last administered on 02/09/21at 12:18; Start 02/09/21 at 12:00; Stop 02/10/21 at 08:57; Status DC Sotalol HCl (Betapace) 80 mg BID PO Last administered on 02/12/21at 20:51; Start 02/09/21 at 10:00 Lactobacillus Rhamnosus (Culturelle) 1 cap BID PO Last administered on 02/12/21at 20:46; Start 02/09/21 at 21:00 Docusate Sodium (Colace) 100 mg PRN BID PRN PO HARD STOOLS; Start 02/09/21 at 13:30; Stop 02/12/21 at 10:26; Status DC Aspirin (Aspirin Chewable) 81 mg STK-MED ONCE .ROUTE ; Start 02/10/21 at 07:53; Stop 02/10/21 at 07:53; Status DC Aspirin (Ecotrin) 81 mg DAILYWBKFT PO Last administered on 02/12/21at 08:56; Start 02/11/21 at 08:00 Hydralazine HCl (Apresoline) 25 mg TID PO Last administered on 02/12/21at 08:58; Start 02/10/21 at 12:00; Stop 02/12/21 at 10:33; Status DC Isosorbide Dinitrate (Isordil) 20 mg TID PO Last administered on 02/12/21at 20:47; Start 02/10/21 at 12:00 Gabapentin (Neurontin) 300 mg TID PO Last administered on 02/12/21at 20:47; Start 02/10/21 at 12:00 Trazodone HCl (Desyrel) 50 mg QHS PO Last administered on 02/12/21at 20:47; Sta rt 02/10/21 at 21:00 Iohexol (Omnipaque 300 Mg/ml) 60 ml 1X ONCE IV ; Start 02/10/21 at 17:45; Stop 02/10/21 at 17:46; Status DC Info (CONTRAST GIVEN -- Rx MONITORING) 1 each PRN DAILY PRN MC SEE COMMENTS; Start 02/10/21 at 17:45; Stop 02/12/21 at 17:44; Status DC Aspirin (Aspirin Chewable) 81 mg STK-MED ONCE .ROUTE ; Start 02/10/21 at 08:00; Stop 02/12/21 at 09:02; Status DC Hydralazine HCl (Apresoline) 50 mg TID PO Last administered on 02/12/21at 20:47; Start 02/12/21 at 14:00 Active Scripts Active Betapace (Sotalol Hcl) 80 Mg Tablet 80 Mg PO BID Ezetimibe 10 Mg Tablet 10 Mg PO DAILY Reported Isosorbide Dinitrate 40 Mg Tablet.er 20 Mg PO TID Furosemide 20 Mg Tablet 20 Mg PO DAILY Docusate Sodium 100 Mg Capsule 1 Cap PO DAILY PRN Gabapentin 600 Mg Tablet 600 Mg PO TID Hydralazine Hcl 25 Mg Tablet 1 Tab PO TID Eliquis (Apixaban) 5 Mg Tablet 5 Mg PO BID Amlodipine Besylate 10 Mg Tablet 10 Mg PO DAILY Aspir 81 (Aspirin) 81 Mg Tablet.dr 1 Tab PO DAILY Potassium Chloride (Potassium Chloride) 20 Meq Tablet.er 20 Meq PO DAILY Multi Vitamin Daily (Multivitamin) 1 Each Tablet 1 Each PO DAILY Losartan Potassium 100 Mg Tablet 100 Mg PO DAILY Vitals/I & O Vital Sign - Last 24 Hours 02/12/21 02/12/21 02/12/21 02/12/21 11:00 15:00 15:22 15:23 Temp 97.7 97.6 97.7 97.6 Pulse 61 60 60 60 Resp 18 19 B/P (MAP) 149/76 (100) 152/79 (103) 152/79 152/79 Pulse Ox 92 93 O2 Delivery Nasal Cannula Nasal Cannula O2 Flow Rate 3.0 3.0 02/12/21 02/12/21 02/12/21 02/12/21 19:00 20:00 20:47 20:47 Temp 97.7 97.7 Pulse 60 60 60 Resp 20 B/P (MAP) 152/73 (99) 152/73 152/73 Pulse Ox 95 O2 Delivery Room Air Room Air 02/12/21 02/12/21 02/13/21 02/13/21 20:51 23:00 03:00 07:00 Temp 98.1 97.5 98.4 98.1 97.5 98.4 Pulse 60 60 89 56 Resp 20 20 18 B/P (MAP) 152/73 121/71 (88) 106/64 (78) 118/54 (75) Pulse Ox 98 94 94 O2 Delivery Nasal Cannula Room Air Room Air O2 Flow Rate 2.0 02/13/21 02/13/21 02/13/21 02/13/21 07:20 09:00 09:00 09:00 Pulse 56 56 56 B/P (MAP) 118/54 118/54 118/54 O2 Delivery Room Air Intake and Output 02/12/21 02/12/21 02/13/21 14:59 22:59 06:59 Intake Total 300 ml 1400 ml 300 ml Output Total 500 ml Balance 300 ml 1400 ml -200 ml Justifications for Admission Other Justification LAN DOWLING MD Feb 13, 2021 10:25
[2021-02-13 11:00] VITALS: BP 172/84
--- NOTE | 2021-02-13 11:26 | PDOC ---
Date of Service: DATE: 02/13/21 TIME: 11:24 Subjective: Subjective: Has been NPO today. Stooling a lot - "can't stay out of bathroom." No abd pain or nausea. Objective: Vital Signs: Vital Signs Date Time Temp Pulse Resp B/P (MAP) Pulse Ox O2 Delivery O2 Flow Rate FiO2 02/13/21 11:00 98.2 59 16 172/84 (113) 95 Room Air 98.2 02/12/21 23:00 2.0 Imaging: AAS 02/13 pending PE: GEN: NAD - up in chair watching tv LUNGS: CTAB HEART: RRR ABD: round, soft, non-tender, quieter today NEURO/PSYCH: A & O 3 A/P: Concern for perforated SBO -- X-ray pending, diet per surgery. Justicifation of Admission Dx: Justifications for Admission: Justification of Admission Dx: Yes TARIK PORTER Feb 13, 2021 11:26
--- NOTE | 2021-02-13 11:27 | RAD ---
EXAM: Abdomen acute complete. HISTORY: Small bowel obstruction. COMPARISON: 02/11/2021 FINDINGS: A frontal view of the chest and frontal upright and supine views of the abdomen are obtaine d. There is no infiltrate, pleural effusion or pneumothorax. The heart is normal in size. There is a cardiac pacemaker with leads in expected position. There has been no significant change in distended air-filled loops of bowel throughout the abdomen. There is gas within the colon and rectal vault. The re are multiple surgical clips within the pelvis. There are cholecystomy clips. There are bilateral h ip arthroplasties. There is no free air. IMPRESSION: 1. No significant change in distended air-filled loops of bowel throughout the abdomen. 2. No acute pulmonary finding. Electronically signed by: Alysia Beckford MD (02/13/2021 11:25 AM) [id number]
[2021-02-13] MEDS: ENOXAPARIN 40 MG/0.4 ML SYRINGE. SQ SCH (11:34)
[2021-02-13 14:51] LABS: BASO % 1 % (0-3); EOS # 0.1 x10^3/uL (0.0-0.7); EOS % 3 % (0-3); HEMATOCRIT 38.6 % (39.0-53.0); HEMOGLOBIN 12.9 g/dL (13.0-17.5); LYMPH % 29 % (24-48); MEAN CORPUSCULAR HEMOGLOBIN 31 pg (25-35); MEAN CORPUSCULAR HGB CONC 34 g/dL (31-37); MEAN CORPUSCULAR VOLUME 93 fL (79-100); MONO # 0.6 x10^3/uL (0.0-1.1); MONO % 18 % (0-9); NEUT # 1.7 x10^3/uL (1.8-7.7); NEUT % 49 % (31-73); PLATELET COUNT 165 x10^3/uL (140-400); RED BLOOD COUNT 4.14 x10^6/uL (4.30-5.70); RED CELL DISTRIBUTION WIDTH 15.2 % (11.5-14.5); WHITE BLOOD COUNT 3.4 x10^3/uL (4.0-11.0)
[2021-02-13 15:00] VITALS: BP 203/99
[2021-02-13 15:12] LABS: CALCIUM 9.1 mg/dL (8.5-10.1); CREATININE 1.3 mg/dL (0.7-1.3); GFR 62.9; POTASSIUM 4.3 mmol/L (3.5-5.1)
[2021-02-13 19:20] VITALS: BP 153/73
[2021-02-13] MEDS: AMOXICILLIN/K CLAV 875/125MG TABLET. PO SCH (20:34)
[2021-02-13] MEDS: APIXABAN 5 MG TABLET. PO SCH (20:34)
[2021-02-13] MEDS: traZODone 50 MG TABLET. PO SCH (20:36)
[2021-02-13 23:06] VITALS: BP 130/60
[2021-02-14 02:58] VITALS: BP 111/54
[2021-02-14 06:39] LABS: BASO % 1 % (0-3); EOS # 0.1 x10^3/uL (0.0-0.7); EOS % 3 % (0-3); HEMATOCRIT 33.4 % (39.0-53.0); HEMOGLOBIN 11.1 g/dL (13.0-17.5); LYMPH # 0.8 x10^3/uL (1.0-4.8); LYMPH % 27 % (24-48); MEAN CORPUSCULAR HEMOGLOBIN 31 pg (25-35); MEAN CORPUSCULAR HGB CONC 33 g/dL (31-37); MEAN CORPUSCULAR VOLUME 93 fL (79-100); MONO # 0.5 x10^3/uL (0.0-1.1); MONO % 17 % (0-9); NEUT # 1.7 x10^3/uL (1.8-7.7); NEUT % 54 % (31-73); PLATELET COUNT 148 x10^3/uL (140-400); RED BLOOD COUNT 3.57 x10^6/uL (4.30-5.70); RED CELL DISTRIBUTION WIDTH 14.7 % (11.5-14.5); WHITE BLOOD COUNT 3.1 x10^3/uL (4.0-11.0)
[2021-02-14 06:54] LABS: CALCIUM 8.5 mg/dL (8.5-10.1); CREATININE 1.3 mg/dL (0.7-1.3); GFR 62.9
[2021-02-14 07:00] VITALS: BP 144/70
[2021-02-14] MEDS: ASPIRIN ENTERIC COATED 81 MG TABLET.DR. PO SCH (08:21)
[2021-02-14] MEDS: MULTIVITAMIN with MINERAL TABLET. PO SCH (08:21)
[2021-02-14] MEDS: APIXABAN 5 MG TABLET. PO SCH (08:22)
[2021-02-14] MEDS: AMOXICILLIN/K CLAV 875/125MG TABLET. PO SCH (08:22)
[2021-02-14] MEDS: EZETIMIBE 10 MG TABLET. PO SCH (08:22)
[2021-02-14] MEDS: FUROSEMIDE 20 MG TABLET PO SCH (08:22)
[2021-02-14] MEDS: GABAPENTIN 300 MG CAPSULE. PO SCH (08:22)
[2021-02-14] MEDS: LACTOBACILLUS RHAMNOSUS GG 1 CAPSULE. PO SCH (08:22)
[2021-02-14] MEDS: FAMOTIDINE 20 MG TABLET. PO SCH (08:22)
[2021-02-14] MEDS: amLODIPine BESYLATE 10 MG TABLET PO SCH (08:23)
[2021-02-14] MEDS: POTASSIUM CHLORIDE 20 MEQ TABLET.ER. PO SCH (08:23)
[2021-02-14] MEDS: ISOSORBIDE DINITRATE 10 MG TABLET. PO SCH (08:24)
[2021-02-14] MEDS: SOTALOL 80 MG TABLET. PO SCH (08:24)
[2021-02-14] MEDS: LOSARTAN POTASSIUM 50 MG TABLET. PO SCH (08:25)
--- NOTE | 2021-02-14 09:19 | PDOC ---
SURGICAL PROGRESS NOTE DATE: 02/14/21 TIME: 09:18 Subjective no pain tolerating diet does not feel bloated loose stools, maybe a little more form Vital Signs Vital Signs Date Time Temp Pulse Resp B/P (MAP) Pulse Ox O2 Delivery O2 Flow Rate FiO2 02/14/21 08:25 61 144/70 02/14/21 07:00 98.2 18 92 Room Air 98.2 02/14/21 02:58 2.0 I&O Intake and Output0 02/14/21 07:00 Intake Total 480 ml Output Total 25 ml Balance 455 ml Intake Oral 480 ml Output Urine Total 25 ml # Bowel Movements 1 General: Alert, Oriented X3, Cooperative Abdomen: Soft, No tenderness, Other (? slightly distended ) Labs Laboratory Tests Test 02/13/21 14:20 02/14/21 05:30 02/14/21 05:50 White Blood Count 3.4 x10^3/uL (4.0-11.0) 3.1 x10^3/uL (4.0-11.0) Red Blood Count 4.14 x10^6/uL (4.30-5.70) 3.57 x10^6/uL (4.30-5.70) Hemoglobin 12.9 g/dL (13.0-17.5) 11.1 g/dL (13.0-17.5) Hematocrit 38.6 % (39.0-53.0) 33.4 % (39.0-53.0) Mean Corpuscular Volume 93 fL (79-100) 93 fL (79-100) Mean Corpuscular Hemoglobin 31 pg (25-35) 31 pg (25-35) Mean Corpuscular Hemoglobin Concent 34 g/dL (31-37) 33 g/dL (31-37) Red Cell Distribution Width 15.2 % (11.5-14.5) 14.7 % (11.5-14.5) Platelet Count 165 x10^3/uL (140-400) 148 x10^3/uL (140-400) Neutrophils (%) (Auto) 49 % (31-73) 54 % (31-73) Lymphocytes (%) (Auto) 29 % (24-48) 27 % (24-48) Monocytes (%) (Auto) 18 % (0-9) 17 % (0-9) Eosinophils (%) (Auto) 3 % (0-3) 3 % (0-3) Basophils (%) (Auto) 1 % (0-3) 1 % (0-3) Neutrophils # (Auto) 1.7 x10^3/uL (1.8-7.7) 1.7 x10^3/uL (1.8-7.7) Lymphocytes # (Auto) 1.0 x10^3/uL (1.0-4.8) 0.8 x10^3/uL (1.0-4.8) Monocytes # (Auto) 0.6 x10^3/uL (0.0-1.1) 0.5 x10^3/uL (0.0-1.1) Eosinophils # (Auto) 0.1 x10^3/uL (0.0-0.7) 0.1 x10^3/uL (0.0-0.7) Basophils # (Auto) 0.0 x10^3/uL (0.0-0.2) 0.0 x10^3/uL (0.0-0.2) Sodium Level 145 mmol/L (136-145) 145 mmol/L (136-145) Potassium Level 4.3 mmol/L (3.5-5.1) 4.0 mmol/L (3.5-5.1) Chloride Level 109 mmol/L (98-107) 110 mmol/L (98-107) Carbon Dioxide Level 30 mmol/L (21-32) 29 mmol/L (21-32) Anion Gap 6 (6-14) 6 (6-14) Blood Urea Nitrogen 8 mg/dL (8-26) 8 mg/dL (8-26) Creatinine 1.3 mg/dL (0.7-1.3) 1.3 mg/dL (0.7-1.3) Estimated GFR (Cockcroft-Gault) 62.9 62.9 Glucose Level 87 mg/dL (70-99) 85 mg/dL (70-99) Calcium Level 9.1 mg/dL (8.5-10.1) 8.5 mg/dL (8.5-10.1) Laboratory Tests Test 02/13/21 14:20 02/14/21 05:30 02/14/21 05:50 White Blood Count 3.4 x10^3/uL (4.0-11.0) 3.1 x10^3/uL (4.0-11.0) Red Blood Count 4.14 x10^6/uL (4.30-5.70) 3.57 x10^6/uL (4.30-5.70) Hemoglobin 12.9 g/dL (13.0-17.5) 11.1 g/dL (13.0-17.5) Hematocrit 38.6 % (39.0-53.0) 33.4 % (39.0-53.0) Mean Corpuscular Volume 93 fL (79-100) 93 fL (79-100) Mean Corpuscular Hemoglobin 31 pg (25-35) 31 pg (25-35) Mean Corpuscular Hemoglobin Concent 34 g/dL (31-37) 33 g/dL (31-37) Red Cell Distribution Width 15.2 % (11.5-14.5) 14.7 % (11.5-14.5) Platelet Count 165 x10^3/uL (140-400) 148 x10^3/uL (140-400) Neutrophils (%) (Auto) 49 % (31-73) 54 % (31-73) Lymphocytes (%) (Auto) 29 % (24-48) 27 % (24-48) Monocytes (%) (Auto) 18 % (0-9) 17 % (0-9) Eosinophils (%) (Auto) 3 % (0-3) 3 % (0-3) Basophils (%) (Auto) 1 % (0-3) 1 % (0-3) Neutrophils # (Auto) 1.7 x10^3/uL (1.8-7.7) 1.7 x10^3/uL (1.8-7.7) Lymphocytes # (Auto) 1.0 x10^3/uL (1.0-4.8) 0.8 x10^3/uL (1.0-4.8) Monocytes # (Auto) 0.6 x10^3/uL (0.0-1.1) 0.5 x10^3/uL (0.0-1.1) Eosinophils # (Auto) 0.1 x10^3/uL (0.0-0.7) 0.1 x10^3/uL (0.0-0.7) Basophils # (Auto) 0.0 x10^3/uL (0.0-0.2) 0.0 x10^3/uL (0.0-0.2) Sodium Level 145 mmol/L (136-145) 145 mmol/L (136-145) Potassium Level 4.3 mmol/L (3.5-5.1) 4.0 mmol/L (3.5-5.1) Chloride Level 109 mmol/L (98-107) 110 mmol/L (98-107) Carbon Dioxide Level 30 mmol/L (21-32) 29 mmol/L (21-32) Anion Gap 6 (6-14) 6 (6-14) Blood Urea Nitrogen 8 mg/dL (8-26) 8 mg/dL (8-26) Creatinine 1.3 mg/dL (0.7-1.3) 1.3 mg/dL (0.7-1.3) Estimated GFR (Cockcroft-Gault) 62.9 62.9 Glucose Level 87 mg/dL (70-99) 85 mg/dL (70-99) Calcium Level 9.1 mg/dL (8.5-10.1) 8.5 mg/dL (8.5-10.1) Problem List Problems Medical Problems: (1) Perforated abdominal viscus Status: Acute (2) Perforated bowel Status: Acute (3) Pneumatosis intestinalis Status: Acute (4) Small bowel obstruction Status: Acute Assessment/Plan xray stable, VSS, lab stable tolerating diet, having stools no surgical plans Justicifation of Admission Dx: Justifications for Admission: Justification of Admission Dx: Yes JONNY MORALES PRINTER MAINTAINER Feb 14, 2021 09:19
--- NOTE | 2021-02-14 09:25 | PDOC ---
Infectious Disease Note Subjective: Subjective Patient without complaints Had multiple loose bowel movements No acute issues per RN Vital Signs: Vital Signs Vital Signs Date Time Temp Pulse Resp B/P (MAP) Pulse Ox O2 Delivery O2 Flow Rate FiO2 02/14/21 08:25 61 144/70 02/14/21 07:00 98.2 18 92 Room Air 98.2 02/14/21 02:58 2.0 Physical Exam: PHYSICAL EXAM GENERAL: Alert, oriented x 3 male, sitting in chair, in no acute distress. HEENT: Normocephalic, atraumatic, anicteric. No thrush. NECK: Supple, no JVD. LUNGS: Clear bilaterally. No wheezing. HEART: S1, S2. No gallops or murmurs. ABDOMEN: Distended. Bowel sounds present. Mildly tender in the upper quadrant. No rebound, no guarding. EXTREMITIES: No edema, no cyanosis. DERMATOLOGIC: Warm, dry. No generalized rash. NEUROLOGIC: Alert and oriented x 3, grossly nonfocal. PSYCHIATRIC: Cooperative, appropriate mood and affect. DERMATOLOGIC: Warm and dry. No generalized rash. Chest wall, pacemaker site looks clean. Medications: Inpatient Meds: Medications reviewed. Labs: Lab Laboratory Tests Test 02/13/21 14:20 02/14/21 05:30 02/14/21 05:50 White Blood Count 3.4 x10^3/uL (4.0-11.0) 3.1 x10^3/uL (4.0-11.0) Red Blood Count 4.14 x10^6/uL (4.30-5.70) 3.57 x10^6/uL (4.30-5.70) Hemoglobin 12.9 g/dL (13.0-17.5) 11.1 g/dL (13.0-17.5) Hematocrit 38.6 % (39.0-53.0) 33.4 % (39.0-53.0) Mean Corpuscular Volume 93 fL (79-100) 93 fL (79-100) Mean Corpuscular Hemoglobin 31 pg (25-35) 31 pg (25-35) Mean Corpuscular Hemoglobin Concent 34 g/dL (31-37) 33 g/dL (31-37) Red Cell Distribution Width 15.2 % (11.5-14.5) 14.7 % (11.5-14.5) Platelet Count 165 x10^3/uL (140-400) 148 x10^3/uL (140-400) Neutrophils (%) (Auto) 49 % (31-73) 54 % (31-73) Lymphocytes (%) (Auto) 29 % (24-48) 27 % (24-48) Monocytes (%) (Auto) 18 % (0-9) 17 % (0-9) Eosinophils (%) (Auto) 3 % (0-3) 3 % (0-3) Basophils (%) (Auto) 1 % (0-3) 1 % (0-3) Neutrophils # (Auto) 1.7 x10^3/uL (1.8-7.7) 1.7 x10^3/uL (1.8-7.7) Lymphocytes # (Auto) 1.0 x10^3/uL (1.0-4.8) 0.8 x10^3/uL (1.0-4.8) Monocytes # (Auto) 0.6 x10^3/uL (0.0-1.1) 0.5 x10^3/uL (0.0-1.1) Eosinophils # (Auto) 0.1 x10^3/uL (0.0-0.7) 0.1 x10^3/uL (0.0-0.7) Basophils # (Auto) 0.0 x10^3/uL (0.0-0.2) 0.0 x10^3/uL (0.0-0.2) Sodium Level 145 mmol/L (136-145) 145 mmol/L (136-145) Potassium Level 4.3 mmol/L (3.5-5.1) 4.0 mmol/L (3.5-5.1) Chloride Level 109 mmol/L (98-107) 110 mmol/L (98-107) Carbon Dioxide Level 30 mmol/L (21-32) 29 mmol/L (21-32) Anion Gap 6 (6-14) 6 (6-14) Blood Urea Nitrogen 8 mg/dL (8-26) 8 mg/dL (8-26) Creatinine 1.3 mg/dL (0.7-1.3) 1.3 mg/dL (0.7-1.3) Estimated GFR (Cockcroft-Gault) 62.9 62.9 Glucose Level 87 mg/dL (70-99) 85 mg/dL (70-99) Calcium Level 9.1 mg/dL (8.5-10.1) 8.5 mg/dL (8.5-10.1) Objective: Assessment: 1. Abdominal pain. 2. Small bowel obstruction improving 3. Pneumatosis intestinalis improving 4. Coronary artery disease. 5. Hypertension/hyperlipidemia. 6. Paroxysmal atrial fibrillation. 7. Status post permanent pacemaker. 8. Acute kidney injury, improved. 9. Leukopenia.etiology ? , 10. History of colon cancer, status post resection. 11. History of prostate cancer. 12. Status post cholecystectomy. Plan: Plan of Care DC Augmentin cont supportive care Discussed with YING Meyer MD Feb 14, 2021 09:25
--- NOTE | 2021-02-14 09:59 | PDOC ---
PROGRESS NOTES Date of Service DATE: 02/14/21 TIME: 09:57 Subjective Subjective had 1 small semi formed BM today. no abdominal pain or nausea or vomiting. eating solid food well. lab reviewed. switched to aumgnetin per ID. stool for c. diff pending. Objective Objective Vital Signs Date Time Temp Pulse Resp B/P (MAP) Pulse Ox O2 Delivery O2 Flow Rate FiO2 02/14/21 08:25 61 144/70 02/14/21 07:00 98.2 18 92 Room Air 98.2 02/14/21 02:58 2.0 Intake and Output 02/14/21 07:00 Intake Total 480 ml Output Total 25 ml Balance 455 ml Intake Oral 480 ml Output Urine Total 25 ml # Bowel Movements 1 Physical Exam Abdomen: Normal bowel sounds, Soft, No tenderness, Other (not tender) Heart: Regular rate, Normal S1, Normal S2 Extremities: No edema General: Alert HEENT: Atraumatic Lungs: Clear to auscultation Neuro: Normal speech Psych/Mental Status: Mental status NL Skin: No rashes Assessment Assessment Problemssuspect partial SBO . clinically resolved morbid obesity hypertension hyperlipidemia paroxysmal atrial fibrillation pnuematosis of small bowel recent small bowel perforation clinically improved diarrhea improved Medical Problems: (1) Perforated abdominal viscus Status: Acute (2) Perforated bowel Status: Acute (3) Pneumatosis intestinalis Status: Acute (4) Small bowel obstruction Status: Acute Plan Plan of Care continue augmentin c . diff pending dismiss today Comment Review of Relevant I have reviewed the following items martín (where applicable) has been applied. Labs Laboratory Tests Test 02/13/21 14:20 02/14/21 05:30 02/14/21 05:50 White Blood Count 3.4 x10^3/uL (4.0-11.0) 3.1 x10^3/uL (4.0-11.0) Red Blood Count 4.14 x10^6/uL (4.30-5.70) 3.57 x10^6/uL (4.30-5.70) Hemoglobin 12.9 g/dL (13.0-17.5) 11.1 g/dL (13.0-17.5) Hematocrit 38.6 % (39.0-53.0) 33.4 % (39.0-53.0) Mean Corpuscular Volume 93 fL (79-100) 93 fL (79-100) Mean Corpuscular Hemoglobin 31 pg (25-35) 31 pg (25-35) Mean Corpuscular Hemoglobin Concent 34 g/dL (31-37) 33 g/dL (31-37) Red Cell Distribution Width 15.2 % (11.5-14.5) 14.7 % (11.5-14.5) Platelet Count 165 x10^3/uL (140-400) 148 x10^3/uL (140-400) Neutrophils (%) (Auto) 49 % (31-73) 54 % (31-73) Lymphocytes (%) (Auto) 29 % (24-48) 27 % (24-48) Monocytes (%) (Auto) 18 % (0-9) 17 % (0-9) Eosinophils (%) (Auto) 3 % (0-3) 3 % (0-3) Basophils (%) (Auto) 1 % (0-3) 1 % (0-3) Neutrophils # (Auto) 1.7 x10^3/uL (1.8-7.7) 1.7 x10^3/uL (1.8-7.7) Lymphocytes # (Auto) 1.0 x10^3/uL (1.0-4.8) 0.8 x10^3/uL (1.0-4.8) Monocytes # (Auto) 0.6 x10^3/uL (0.0-1.1) 0.5 x10^3/uL (0.0-1.1) Eosinophils # (Auto) 0.1 x10^3/uL (0.0-0.7) 0.1 x10^3/uL (0.0-0.7) Basophils # (Auto) 0.0 x10^3/uL (0.0-0.2) 0.0 x10^3/uL (0.0-0.2) Sodium Level 145 mmol/L (136-145) 145 mmol/L (136-145) Potassium Level 4.3 mmol/L (3.5-5.1) 4.0 mmol/L (3.5-5.1) Chloride Level 109 mmol/L (98-107) 110 mmol/L (98-107) Carbon Dioxide Level 30 mmol/L (21-32) 29 mmol/L (21-32) Anion Gap 6 (6-14) 6 (6-14) Blood Urea Nitrogen 8 mg/dL (8-26) 8 mg/dL (8-26) Creatinine 1.3 mg/dL (0.7-1.3) 1.3 mg/dL (0.7-1.3) Estimated GFR (Cockcroft-Gault) 62.9 62.9 Glucose Level 87 mg/dL (70-99) 85 mg/dL (70-99) Calcium Level 9.1 mg/dL (8.5-10.1) 8.5 mg/dL (8.5-10.1) Laboratory Tests Test 02/13/21 14:20 02/14/21 05:30 02/14/21 05:50 White Blood Count 3.4 x10^3/uL (4.0-11.0) 3.1 x10^3/uL (4.0-11.0) Red Blood Count 4.14 x10^6/uL (4.30-5.70) 3.57 x10^6/uL (4.30-5.70) Hemoglobin 12.9 g/dL (13.0-17.5) 11.1 g/dL (13.0-17.5) Hematocrit 38.6 % (39.0-53.0) 33.4 % (39.0-53.0) Mean Corpuscular Volume 93 fL (79-100) 93 fL (79-100) Mean Corpuscular Hemoglobin 31 pg (25-35) 31 pg (25-35) Mean Corpuscular Hemoglobin Concent 34 g/dL (31-37) 33 g/dL (31-37) Red Cell Distribution Width 15.2 % (11.5-14.5) 14.7 % (11.5-14.5) Platelet Count 165 x10^3/uL (140-400) 148 x10^3/uL (140-400) Neutrophils (%) (Auto) 49 % (31-73) 54 % (31-73) Lymphocytes (%) (Auto) 29 % (24-48) 27 % (24-48) Monocytes (%) (Auto) 18 % (0-9) 17 % (0-9) Eosinophils (%) (Auto) 3 % (0-3) 3 % (0-3) Basophils (%) (Auto) 1 % (0-3) 1 % (0-3) Neutrophils # (Auto) 1.7 x10^3/uL (1.8-7.7) 1.7 x10^3/uL (1.8-7.7) Lymphocytes # (Auto) 1.0 x10^3/uL (1.0-4.8) 0.8 x10^3/uL (1.0-4.8) Monocytes # (Auto) 0.6 x10^3/uL (0.0-1.1) 0.5 x10^3/uL (0.0-1.1) Eosinophils # (Auto) 0.1 x10^3/uL (0.0-0.7) 0.1 x10^3/uL (0.0-0.7) Basophils # (Auto) 0.0 x10^3/uL (0.0-0.2) 0.0 x10^3/uL (0.0-0.2) Sodium Level 145 mmol/L (136-145) 145 mmol/L (136-145) Potassium Level 4.3 mmol/L (3.5-5.1) 4.0 mmol/L (3.5-5.1) Chloride Level 109 mmol/L (98-107) 110 mmol/L (98-107) Carbon Dioxide Level 30 mmol/L (21-32) 29 mmol/L (21-32) Anion Gap 6 (6-14) 6 (6-14) Blood Urea Nitrogen 8 mg/dL (8-26) 8 mg/dL (8-26) Creatinine 1.3 mg/dL (0.7-1.3) 1.3 mg/dL (0.7-1.3) Estimated GFR (Cockcroft-Gault) 62.9 62.9 Glucose Level 87 mg/dL (70-99) 85 mg/dL (70-99) Calcium Level 9.1 mg/dL (8.5-10.1) 8.5 mg/dL (8.5-10.1) Medications Current Medications Iohexol (Omnipaque 300 Mg/ml) 60 ml 1X ONCE IV ; Start 02/07/21 at 13:45; Stop 02/07/21 at 13:51; Status DC Info (CONTRAST GIVEN -- Rx MONITORING) 1 each PRN DAILY PRN MC SEE COMMENTS; Start 02/07/21 at 14:00; Stop 02/09/21 at 13:59; Status DC Piperacillin Sod/ Tazobactam Sod (Zosyn Per Pharmacy) 1 each PRN DAILY PRN MC SEE COMMENTS; Start 02/07/21 at 14:30; Stop 02/13/21 at 13:31; Status DC Piperacillin Sod/ Tazobactam Sod 2.25 gm/Sodium Chloride 50 ml @ 100 mls/hr 1X ONCE IV Last administered on 02/07/21at 15:59; Start 02/07/21 at 14:45; Stop 02/07/21 at 15:14; Status DC Ondansetron HCl (Zofran) 4 mg PRN Q8HRS PRN IV NAUSEA/VOMITING; Start 02/07/21 at 15:00; Stop 02/07/21 at 15:54; Status DC Morphine Sulfate (Morphine Sulfate) 4 mg PRN Q2HR PRN IV PAIN Last administered on 02/07/21at 18:17; Start 02/07/21 at 15:00; Stop 02/08/21 at 14:59; Status DC Sodium Chloride 1,000 ml @ 75 mls/hr [id number] IV Last administered on 02/07/21at 15:59; Start 02/07/21 at 15:00; Stop 02/08/21 at 14:59; Status DC Piperacillin Sod/ Tazobactam Sod 2.25 gm/Sodium Chloride 50 ml @ 100 mls/hr Q6HRS IV Last administered on 02/08/21at 05:08; Start 02/08/21 at 00:00; Stop 02/08/21 at 11:42; Status DC Potassium Chloride/Dextrose/ Sod Cl 1,000 ml @ 40 mls/hr Q24H IV Last administered on 02/12/21at 20:46; Start 02/07/21 at 15:45; Stop 02/13/21 at 10:22; Status DC Ondansetron HCl (Zofran) 4 mg PRN Q6HRS PRN IVP NAUSEA/VOMITING Last administered on 02/07/21at 18:17; Start 02/07/21 at 15:45 Famotidine (Pepcid Vial) 20 mg DAILY IVP Last administered on 02/09/21at 08:03; Start 02/07/21 at 18:00; Stop 02/09/21 at 09:38; Status DC Morphine Sulfate (Morphine Sulfate) 2 mg PRN Q4HRS PRN IV PAIN Last administered on 02/08/21at 22:16; Start 02/07/21 at 15:45; Stop 02/09/21 at 09:38; Status DC Acetaminophen (Tylenol Supp) 650 mg PRN Q6HRS PRN [place] MILD PAIN / TEMP > 100.3'F; Start 02/07/21 at 15:45; Stop 02/09/21 at 09:38; Status DC Hydralazine HCl (Apresoline Inj) 10 mg PRN Q4HRS PRN IVP ELEVATED BP, SEE COMMENTS; Start 02/07/21 at 15:45 Nitroglycerin (Nitro-Dur) 1 patch DAILY TD Last administered on 02/09/21at 08:04; Start 02/08/21 at 09:00; Stop 02/09/21 at 09:38; Status DC Enoxaparin Sodium (Lovenox 40mg Syringe) 40 mg Q24H SQ Last administered on 02/13/21at 11:34; Start 02/08/21 at 09:00; Stop 02/13/21 at 13:25; Status DC Metoprolol Tartrate (Lopressor Vial) 5 mg Q6HRS IVP ; Start 02/08/21 at 10:00; Stop 02/08/21 at 10:09; Status DC Metoprolol Tartrate (Lopressor Vial) 2.5 mg Q6HRS IVP Last administered on 02/09/21at 05:14; Start 02/08/21 at 12:00; Stop 02/09/21 at 09:38; Status DC Piperacillin Sod/ Tazobactam Sod 3.375 gm/Sodium Chloride 50 ml @ 100 mls/hr Q6HRS IV Last administered on 02/13/21at 05:50; Start 02/08/21 at 12:00; Stop 02/13/21 at 10:47; Status DC Acetaminophen (Tylenol) 650 mg PRN Q6HRS PRN PO MILD PAIN / TEMP > 100.3'F Last administered on 02/10/21 13:34; Start 02/09/21 at 09:30 Famotidine (Pepcid) 20 mg DAILY PO Last administered on 02/14/21 08:22; Start 02/09/21 at 10:00 Acetaminophen/ Hydrocodone Bitart (Lortab 5/325) 1 tab PRN Q4HRS PRN PO MODERATE TO SEVERE PAIN Last administered on 02/10/21 19:59; Start 02/09/21 at 09:30 Fentanyl Citrate (Fentanyl 2ml Vial) 25 mcg PRN Q4HRS PRN IVP MODERATE PAIN Last administered on 02/10/21 16:37; Start 02/09/21 at 09:30 Amlodipine Besylate (Norvasc) 10 mg DAILY PO Last administered on 02/14/21 08:23; Start 02/09/21 at 10:00 Furosemide (Lasix) 20 mg DAILY PO Last administered on 02/14/21 08:22; Start 02/09/21 at 10:00 Potassium Chloride (Klor-Con) 20 meq DAILYWBKFT PO Last administered on 02/14/21 08:23; Start 02/09/21 at 10:00 EZETIMIBE (Zetia) 10 mg DAILY PO Last administered on 02/14/21 08:22; Start 02/09/21 at 10:00 Nitroglycerin (Nitrostat) 0.4 mg PRN Q5MIN PRN SL CHEST PAIN; Start 02/09/21 at 09:30 Losartan Potassium (Cozaar) 100 mg DAILY PO Last administered on 02/14/21 08:25; Start 02/09/21 at 10:00 Multivitamins (Thera M Plus) 1 tab DAILY PO Last administered on 02/14/21 08:21; Start 02/09/21 at 10:00 Aspirin (Misty Aspirin) 81 mg DAILYWBKFT PO Last administered on 02/09/21at 12:18; Start 02/09/21 at 12:00; Stop 02/10/21 at 08:57; Status DC Sotalol HCl (Betapace) 80 mg BID PO Last administered on 02/14/21 08:24; Start 02/09/21 at 10:00 Lactobacillus Rhamnosus (Culturelle) 1 cap BID PO Last administered on 02/14/21at 08:22; Start 02/09/21 at 21:00 Docusate Sodium (Colace) 100 mg PRN BID PRN PO HARD STOOLS; Start 02/09/21 at 13:30; Stop 02/12/21 at 10:26; Status DC Aspirin (Aspirin Chewable) 81 mg STK-MED ONCE .ROUTE ; Start 02/10/21 at 07:53; Stop 02/10/21 at 07:53; Status DC Aspirin (Ecotrin) 81 mg DAILYWBKFT PO Last administered on 02/14/21at 08:21; Start 02/11/21 at 08:00 Hydralazine HCl (Apresoline) 25 mg TID PO Last administered on 02/12/21at 08:58; Start 02/10/21 at 12:00; Stop 02/12/21 at 10:33; Status DC Isosorbide Dinitrate (Isordil) 20 mg TID PO Last administered on 02/14/21at 08:24; Start 02/10/21 at 12:00 Gabapentin (Neurontin) 300 mg TID PO Last administered on 02/14/21at 08:22; Start 02/10/21 at 12:00 Trazodone HCl (Desyrel) 50 mg QHS PO Last administered on 02/13/21at 20:36; Start 02/10/21 at 21:00 Iohexol (Omnipaque 300 Mg/ml) 60 ml 1X ONCE IV ; Start 02/10/21 at 17:45; Stop 02/10/21 at 17:46; Status DC Info (CONTRAST GIVEN -- Rx MONITORING) 1 each PRN DAILY PRN MC SEE COMMENTS; Start 02/10/21 at 17:45; Stop 02/12/21 at 17:44; Status DC Aspirin (Aspirin Chewable) 81 mg STK-MED ONCE .ROUTE ; Start 02/10/21 at 08:00; Stop 02/12/21 at 09:02; Status DC Hydralazine HCl (Apresoline) 50 mg TID PO Last administered on 02/14/21at 08:24; Start 02/12/21 at 14:00 Amoxicillin/ Clavulanate Potassium (Augmentin 875/ 125mg) 1 tab BID PO Last administered on 02/14/21at 08:22; Start 02/13/21 at 21:00 Apixaban (Eliquis) 5 mg BID PO Last administered on 02/14/21at 08:22; Start 02/13/21 at 21:00 Active Scripts Active Betapace (Sotalol Hcl) 80 Mg Tablet 80 Mg PO BID Ezetimibe 10 Mg Tablet 10 Mg PO DAILY Reported Isosorbide Dinitrate 40 Mg Tablet.er 20 Mg PO TID Furosemide 20 Mg Tablet 20 Mg PO DAILY Docusate Sodium 100 Mg Capsule 1 Cap PO DAILY PRN Gabapentin 600 Mg Tablet 600 Mg PO TID Hydralazine Hcl 25 Mg Tablet 1 Tab PO TID Eliquis (Apixaban) 5 Mg Tablet 5 Mg PO BID Amlodipine Besylate 10 Mg Tablet 10 Mg PO DAILY Aspir 81 (Aspirin) 81 Mg Tablet. 1 Tab PO DAILY Potassium Chloride (Potassium Chloride) 20 Meq Tablet.er 20 Meq PO DAILY Multi Vitamin Daily (Multivitamin) 1 Each Tablet 1 Each PO DAILY Losartan Potassium 100 Mg Tablet 100 Mg PO DAILY Vitals/I & O Vital Sign - Last 24 Hours 02/13/21 02/13/21 02/13/21 02/13/21 11:00 14:36 14:36 15:00 Temp 98.2 97.8 98.2 97.8 Pulse 59 65 65 65 Resp 16 20 B/P (MAP) 172/84 (113) 203/99 203/99 203/99 (133) Pulse Ox 95 94 O2 Delivery Room Air Room Air 02/13/21 02/13/21 02/13/21 02/13/21 19:20 20:00 20:34 20:35 Temp 97.6 97.6 Pulse 67 67 67 Resp 18 B/P (MAP) 153/73 (99) 153/73 153/73 Pulse Ox 95 O2 Delivery Room Air Room Air 02/13/21 02/13/21 02/14/21 02/14/21 20:36 23:06 02:58 07:00 Temp 98.3 98.0 98.2 98.3 98.0 98.2 Pulse 67 65 66 61 Resp 18 20 18 B/P (MAP) 153/73 130/60 (83) 111/54 (73) 144/70 (94) Pulse Ox 90 92 92 O2 Delivery Room Air Nasal Cannula Room Air O2 Flow Rate 2.0 02/14/21 02/14/21 02/14/21 02/14/21 08:23 08:24 08:24 08:24 Pulse 61 61 61 61 B/P (MAP) 144/70 144/70 144/70 144/70 02/14/21 08:25 Pulse 61 B/P (MAP) 144/70 Intake and Output 02/13/21 02/13/21 02/14/21 15:00 23:00 07:00 Intake Total 480 ml Output Total 25 ml Balance 455 ml Justifications for Admission Other Justification LAN DOWLING MD Feb 14, 2021 09:59
--- NOTE | 2021-02-14 10:06 | DISCH ---
DISCHARGE INSTRUCTIONS Condition on Discharge Condition on Discharge: Stable Activity After Discharge Activity Instructions for Disc: Activity as tolerated Bathing Instructions: No Tub Bath until see Lifting Instructions after Dis: No heavy lifting, No pulling or pushing, Do not lift >10 pounds Exercise Instruction after Dis: Progress as tolerated Driving Instructions after Dis: Other, see below Weight Bearing Status after Di: As tolerated Diet after Discharge Diet after Discharge: Cardiac Diet Texture: Regular Liquid Texture: Thin Liquid Swallowing Supervision: None needed Wound Incision Care Wound/Incision Care: May get incision wet, No wound care needed Checks after Discharge Checks after discharge: Check blood press - daily Contacting the DRElkin after DC Call your doctor for: Concerns you may have Follow-Up Follow up with: dr. dowling next week Treatment/Equipment after DC Adaptive Equipment Issued: None LAN DOWLING MD Feb 14, 2021 10:06
--- NOTE | 2021-02-14 10:22 | PDOC ---
Provider Note Date of Service: DATE: 02/14/21 TIME: 10: Provider Note discharge summary dictated # [id number] Justifications for Admission Other Justification LAN DOWLING MD Feb 14, 2021 10:22
--- NOTE | 2021-02-14 10:31 | PDOC ---
Date of Service: DATE: 02/14/21 TIME: 10:30 Subjective: Subjective: Feeling good, gets to go home. Eating and stooling. Little pain that comes and goes. Objective: Vital Signs: Vital Signs Date Time Temp Pulse Resp B/P (MAP) Pulse Ox O2 Delivery O2 Flow Rate FiO2 02/14/21 08:25 61 144/70 02/14/21 07:00 98.2 18 92 Room Air 98.2 02/14/21 02:58 2.0 Labs: Laboratory Tests Test 02/13/21 14:20 02/14/21 05:30 02/14/21 05:50 White Blood Count 3.4 x10^3/uL 3.1 x10^3/uL Red Blood Count 4.14 x10^6/uL 3.57 x10^6/uL Hemoglobin 12.9 g/dL 11.1 g/dL Hematocrit 38.6 % 33.4 % Mean Corpuscular Volume 93 fL 93 fL Mean Corpuscular Hemoglobin 31 pg 31 pg Mean Corpuscular Hemoglobin Concent 34 g/dL 33 g/dL Red Cell Distribution Width 15.2 % 14.7 % Platelet Count 165 x10^3/uL 148 x10^3/uL Neutrophils (%) (Auto) 49 % 54 % Lymphocytes (%) (Auto) 29 % 27 % Monocytes (%) (Auto) 18 % 17 % Eosinophils (%) (Auto) 3 % 3 % Basophils (%) (Auto) 1 % 1 % Neutrophils # (Auto) 1.7 x10^3/uL 1.7 x10^3/uL Lymphocytes # (Auto) 1.0 x10^3/uL 0.8 x10^3/uL Monocytes # (Auto) 0.6 x10^3/uL 0.5 x10^3/uL Eosinophils # (Auto) 0.1 x10^3/uL 0.1 x10^3/uL Basophils # (Auto) 0.0 x10^3/uL 0.0 x10^3/uL Sodium Level 145 mmol/L 145 mmol/L Potassium Level 4.3 mmol/L 4.0 mmol/L Chloride Level 109 mmol/L 110 mmol/L Carbon Dioxide Level 30 mmol/L 29 mmol/L Anion Gap 6 6 Blood Urea Nitrogen 8 mg/dL 8 mg/dL Creatinine 1.3 mg/dL 1.3 mg/dL Estimated GFR (Cockcroft-Gault) 62.9 62.9 Glucose Level 87 mg/dL 85 mg/dL Calcium Level 9.1 mg/dL 8.5 mg/dL Imaging: AAS IMPRESSION: 1. No significant change in distended air-filled loops of bowel throughout the abdomen. 2. No acute pulmonary finding. PE: GEN: NAD LUNGS: CTAB HEART: RRR ABD: round, some distended, non-tender NEURO/PSYCH: A & O 3 A/P: Concern for perforated SBO -- Dc per primary/surgery. Justicifation of Admission Dx: Justifications for Admission: Justification of Admission Dx: Yes TARIK PORTER Feb 14, 2021 10:31
[2021-02-14 11:00] VITALS: BP 119/63
--- NOTE | 2021-02-14 12:37 | NUR ---
Discharge Note: PT DISCHARGED HOME WITH SELF CARE. PT LEFT FACILITY VIA PRIVATE VEHICLE WITH FAMILY MEMBER AT 1237. PT STABLE AND ALERT UPON DISCHARGE. PT PIV REMOVED WITHOUT COMPLICATIONS, BANDAGE APPLIED. PT EDUCATED ABOUT DISCHARGE INSTRUCTIONS, DISCHARGE MEDICATIONS, AND FOLLOW-UP CARE INSTRUCTIONS. NO CONCERNS VOICED AT THIS TIME. PT LEFT WITH ALL PERSONAL BELONGINGS. MARITA ARCOS Discharge instructions and discharge home medications reviewed with Patient and a copy given. All questions have been answered and understanding verbalized.
--- NOTE | 2021-02-14 14:47 | DS ---
DATE OF DISCHARGE: 02/14/2021 CONSULTANTS: Include Dr. Heaven Mejia, Dr. Rasmussen, Dr. Castro and the evp marketing was Dr. Gallegos. FINAL DIAGNOSES: 1. Partial small-bowel obstruction. 2. Pneumotosis intestinalis. 3. Localized small bowel perforation. 4. Coronary artery disease. 5. Hypertension. 6. Hyperlipidemia. 7. Paroxysmal atrial fibrillation. 8. Morbid obesity. 9. Ventral abdominal hernia. 10. Acute kidney injury, improved. 11. Severe protein-calorie malnutrition. 12. Chronic kidney disease stage 2. HOSPITAL COURSE: The patient is an 89-year-old morbidly obese -[place] male with a history of coronary artery disease, hypertension, hyperlipidemia, paroxysmal atrial fibrillation, treated with Eliquis. He notes a 4-week history of intermittent abdominal pain. He was seen in the office on 02/02. Laboratory tests including a CBC, CMP were unremarkable. CAT scan of abdomen and pelvis was done and he received a note from the radiologist on 02/07 that showed pneumatosis intestinalis and intramural air noted in multiple small bowel loops. He had a small amount of intraperitoneal air and he was sent to the [facility] Emergency Room where a repeat CAT scan of the abdomen and pelvis was done with contrast with similar findings. Admitted to the hospital, made n.p.o., was seen in consultation by Dr. Rasmussen for General Surgery, Dr. Castro for GI, Dr. Gallegos for Cardiology and Dr. Heaven Mejia for Infectious Disease. The patient was started on IV Zosyn, was made n.p.o. He had followup acute abdominal series. The pneumotosis intestinalis improved and the intraperitoneal air resolved. He did have continued some small bowel dilated loops, but he was having bowel movements and had abdominal pain only a few times, so he was admitted to the hospital. His abdomen was not tender during his hospital course for the most part. His diet eventually was advanced per the surgeon to clear liquids to full liquids and then solid food yesterday without any abdominal pain. He had no nausea or vomiting or fever. He had some loose stools yesterday. Today, his stools are semi-formed. His stool for C. diff was sent. He was switched from IV Zosyn to Augmentin by the infectious disease c consultant, who told the nurse that he no longer needs any antibiotics when he is dismissed today. He was on Lovenox for DVT prophylaxis, which was eventually discontinued and his Eliquis for his paroxysmal atrial fibrillation was resumed. His home blood pressure medication was also resumed. He was ambulatory, eating well without any abdominal pain. He will be dismissed to home with Amlodipine 10 mg every day, aspirin 81 mg every day, multivitamin every day, Eliquis 5 mg b.i.d., Zetia 10 mg every day, furosemide 20 mg every day, gabapentin 600 mg t.i.d., hydralazine 25 mg p.o. t.i.d., Isordil 20 mg t.i.d., Losartan 100 mg every day. He takes Ransom 5/325 one at bedtime p.r.n., nitroglycerin 0.4 mg sublingual p.r.n., potassium chloride 20 mEq every day and sotalol is 80 mg b.i.d. He will make an appointment to see Dr. House in the office next week and if he has recurrent abdominal pain, nausea, vomiting, fever or blood in the stool, intractable abdominal pain, he is to contact Dr. House or go to the [facility] Emergency Room. [place] DR: Trey TID: [id number]
== END 2021-02-14 12:37 | disposition home or self-care (01) | DRG 393 ==
LOC: ER 12:05 → 4 NORTH 14:45 → 2 NORTH 17:32 → 4 NORTH 02-11 22:56
PROVIDERS: ADMIT Internal Medicine; ATTEND Internal Medicine
DX: K43.6 Other and unspecified ventral hernia with obstruction, without gangrene (principal); K63.1 Perforation of intestine (nontraumatic); E43 Unspecified severe protein-calorie malnutrition; N17.9 Acute kidney failure, unspecified; R44.3 Hallucinations, unspecified; J93.82 Other air leak; K63.89 Other specified diseases of intestine; E78.00 Pure hypercholesterolemia, unspecified; N18.2 Chronic kidney disease, stage 2 (mild); I48.0 Paroxysmal atrial fibrillation; I25.10 Atherosclerotic heart disease of native coronary artery without angina pectoris; G47.00 Insomnia, unspecified; D72.819 Decreased white blood cell count, unspecified; M19.90 Unspecified osteoarthritis, unspecified site; G60.9 Hereditary and idiopathic neuropathy, unspecified; K21.00 Gastro-esophageal reflux disease with esophagitis, without bleeding; K57.90 Diverticulosis of intestine, part unspecified, without perforation or abscess without bleeding; E78.5 Hyperlipidemia, unspecified; K64.8 Other hemorrhoids; N28.1 Cyst of kidney, acquired; E66.01 Morbid (severe) obesity due to excess calories; I12.9 Hypertensive chronic kidney disease with stage 1 through stage 4 chronic kidney disease, or unspecified chronic kidney disease; Z96.643 Presence of artificial hip joint, bilateral; R12 Heartburn; I49.5 Sick sinus syndrome; Z20.822 Contact with and (suspected) exposure to COVID-19; Z85.038 Personal history of other malignant neoplasm of large intestine; Z85.46 Personal history of malignant neoplasm of prostate; Z87.891 Personal history of nicotine dependence; Z90.49 Acquired absence of other specified parts of digestive tract; Z95.0 Presence of cardiac pacemaker; Z88.8 Allergy status to other drugs, medicaments and biological substances; Z79.899 Other long term (current) drug therapy; Z87.19 Personal history of other diseases of the digestive system; Z83.3 Family history of diabetes mellitus; Z82.49 Family history of ischemic heart disease and other diseases of the circulatory system; Z79.82 Long term (current) use of aspirin; Z79.01 Long term (current) use of anticoagulants; Z68.38 Body mass index [BMI] 38.0-38.9, adult; Z86.010 Personal history of colon polyps
CPT/HCPCS: 36415; 71045; 74022; 74177; 80048; 80053; 83605; 83735; 85007; 85025; 85610; 85730; 86850; 86900; 86901; 87426; 87493; 93005; 96365; 96375; J1650; J2270; J2405; J2543; J3010; J3480; J3490; J7030; U0003; U0005; 99285-25; G0378